=== PATIENT | female | born 1940 | race Caucasian/White ===

== ENCOUNTER 2023-11-06 10:06 | Emergency (ER) | payer MEDICARE, OTHER, SELFPAY ==
[2023-11-06 10:33] VITALS: BP 122/106
--- NOTE | 2023-11-06 10:43 | ED.GENMED ---
History of Present Illness
General
Chief Complaint: Cardiac Symptoms
Source: patient
Exam Limitations: none
Time Seen by Provider: 11/06/23 10:15
Nursing documentation reviewed up to this point in time: agreed with
Travel History
Have you had any contact with someone who has COVID-19?: Unable to Answer
Do you have any symptoms of coronavirus? Fever > 100 degrees, chills, cough, shortness of breath, sore throat, loss of taste or smell, muscle aches, or headache?: No
History of Present Illness
History of Present Illness:
83 yo female from [place] she had Covid diagnosed 8 days ago with sore throat, fatigue, cough, h/a, all have subsided. Hx of a fib, last episode >10 yrs ago. Here Apple watch alarmed her awake at 8 a.m. with a HR of
150's. She denies CP, SOB, palpitations. Her mouth is dry. States elevated HR has persisted.
Past History
Past History
ED Past Medical History: Arrthythmia (Atrial fib), Cancer (Ileum), HTN, NIDDM, Hypothyroidism, Psychiatric and Other (Diverticulitis)
ED Past Surgical History: Appendectomy, Bowel resection (Ileum removed for CA), Cholecystectomy, Gynecological (Hysterectomy) and Tonsilectomy
Social History
Tobacco: Former smoker
Alcohol: Occasional
Drug: None
Personal:
Living: assisted living
Employment: Retired
Family History
Family History: Other (Coronary artery disease, brother with pancreatic cancer, sister with CHF)
Review of Systems
Review of Systems
Allergies reviewed?: Yes
All Other Systems: ROS reviewed and negative except as documented in HPI and ROS
Constitutional: Denies fever or fatigue
Respiratory: Denies trouble breathing
Cardiac: Denies chest pain, diaphoresis, palpitations or syncope
ABD/GI: Denies abdominal pain or nausea
: Reports no symptoms
Musculoskeletal: Reports no symptoms
Skin: Reports no symptoms
Neurological: Reports no symptoms
Phy Exam
Physical Exam
Physical Exam:
GENERAL: No acute distress. A&Ox3.
CONSTITUTIONAL: Afebrile.
EYES: PERRL, conjunctivae normal
ENMT: Dry mucus membranes, Pharynx nl
RESPIRATORY: Regular respirations, nonlabored, lungs clear.
CARDIOVASCULAR: Irregular rate and rhythm anywhere between 90-140s on bedside monitor, no murmurs, no rubs.
GI: Soft, nontender, normal BS
MUSCULOSKELETAL: Moves with ease. Well perfused. No edema
SKIN: Warm, dry, pink
PSYCH: Normal mood and affect. Well kept, interactive and appropriate
NEUROLOGIC: Awake, alert and oriented. No focal neurological deficits
Course
Orders/Labs/Results
Orders:
Orders
11/06/23 10:15
IV Insert/Care/Rem.- Treatment PRN
11/06/23 10:16
EKG- Treatment ONCE
CR Chest - 2 Views Urgent
Comment:
Reason For Exam: irreg HR
11/06/23 10:26
Complete Blood Count/With Diff Urgent
Comprehensive Metabolic Panel Urgent
Magnesium Urgent
NT-proBNP Urgent
Prothrombin Time Urgent
TSH Urgent
Comment: reflex T4
Troponin I Q3H
11/06/23 10:30
Electrocardiogram (*1) Q3H
Reason for Study: Chest Pain
11/06/23 11:11
Diltiazem 125 mg/125 ml Nss [Cardizem] 125 mg in 125 ml IV NOW
Initial dose in mg/hr, then titrate:: 5
Titrate to keep:: Heart rate 80-100 bpm
Titrate by mg/hr:: 5 mg/hr
Frequency of titrations (minutes):: 15
Maximum dose in mg/hr:: 15
Diltiazem HCl [Cardizem] 10 mg IV NOW STA
11/06/23 13:00
Diltiazem 125 mg/125 ml Nss [Cardizem] 125 mg in 125 ml IV PER PROTOCOL
Currently infusing. Continue current dose and titrate:: Yes
Titrate to keep:: Heart rate 80-100 bpm
Titrate by mg/hr:: 5 mg/hr
Frequency of titrations (minutes):: 15
Maximum dose in mg/hr:: 15
11/06/23 13:13
EKG- Treatment ONCE
11/06/23 13:30
Electrocardiogram (*1) Q3H
Reason for Study: Chest Pain
11/06/23 13:37
Troponin I Q3H
Abnormal Lab Results
11/06/23
10:26
RDW 14.6 H %
(11.5-14.5)
Abs Immat Gran (auto) 0.1 H 10^3/uL
(0-0.05)
Absolute Monos (auto) 1.3 H 10^3/uL
(0.1-0.6)
Monocytes % 13.6 H %
(1.7-9.3)
Sodium 134 L mmol/L
(135-145)
BUN 22 H mg/dl
(7-17)
Creatinine 1.2 H mg/dL
(0.6-1.0)
Glucose 129 H mg/dl
(70-99)
11/06/23 10:26
11/06/23 10:26
Vital Signs
Initial and Last Documented VS:
Initial Vital Signs
Resp
18
11/06/23 10:14
Last Documented Vital Signs
Temp Pulse Resp BP Pulse Ox
98.1 F 84 17 113/81 98
11/06/23 10:33 11/06/23 13:26 11/06/23 13:26 11/06/23 13:26 11/06/23 13:26
Knitter Operator consulted with Physician
Knitter Operator consulted with physician?: Yes
Name of Physician Consulted: Lissett
MDM/Problems Addressed
Differential Diagnosis Includes:
NV, a fib w RVR
MDM/Problems Addressed:
83 yo female from [place] she had Covid diagnosed 8 days ago with sore throat, fatigue, cough, h/a, all have subsided. Hx of a fib, last episode >10 yrs ago. Here Apple watch alarmed her awake at 8 a.m. with a HR of
150's. She denies CP, SOB, palpitations. Her mouth is dry. States elevated HR has persisted.
EKG: A-fib with RVR heart rate 120s to 150s.
Hemodynamically stable
11/06/2023 1114 AM
CBC normal
CMP with no clinically significant abnormality
Troponin: Normal
BNP: Normal
TSH: Normal
Chest x-ray: No acute cardiopulmonary process.
Hospitalist notified of admission
Cardizem drip started
Will defer anticoagulation heparin versus DOAC's to admitting hospitalist
Case discussed with Dr. Galeana who agrees with assessment and plan
11/06/2023 1337 PM
Patient converted to NSR.
Cardiology Dr. Ruelas notified
Hospitalist has already admitted the patient, I am awaiting to speak with Dr. Ruelas about disposition
11/06/2023 1424 PM
Patient remains NSR, wants to go home.
Dr. Ruelas requests starting her on Toprol 50 mg daily and also Eliquis which she is agreeable to. Prescription sent to her pharmacy
She has a prescheduled appointment with Dr. KADEEM Baker in 5 days which she will keep
Chronic conditions affecting care: Arrhythmia (A fib 10 yrs ago)
*Critical Care Note
Total Time (30-74mins, 75-104mins- exclusive of procedures): Not Applicable
ED Attending Note
-
Portions of this chart may have been created with voice recognition software.� Occasional wrong word or��sound alike� substitutions may have occurred due to the inherent limitations of voice recognition software.
Discharge Plan
Departure
Patient Disposition: Home (Routine Discharge)
Date of Disposition: 11/06/23
Time of Disposition: 14:06
Patient with high blood pressure during this ER visit?: No
Condition: Good
Discharge Problem:
Atrial fibrillation with RVR
Instructions: Atrial fibrillation
Prescriptions:
New
metoprolol succinate [Toprol XL] 50 mg tablet extended release 24 hr
50 mg PO DAILY Qty: 30 0RF
Eliquis 5 mg tablet
5 mg PO BID Qty: 70 0RF
Rx Instructions:
10 mg BID x 7 days then 5 mg BID
No Action
levothyroxine 100 MCG tablet
100 mcg PO QPM
ezetimibe 10 MG tablet
10 mg PO DAILY
cholecalciferol (vitamin D3) 2,000 UNITS tablet
2,000 units PO DAILY
meclizine 25 MG tablet
25 mg PO Q8HPRN PRN (Reason: dizziness)
ondansetron 4 MG tablet,disintegrating
4 mg PO Q6HPRN PRN (Reason: nausea)
PreserVision AREDS-2 1 EACH capsule
1 ea PO BID
valsartan-hydrochlorothiazide 80-12.5 mg tablet
1 tab PO DAILY
sennosides-docusate sodium [Senna-S] 8.6-50 mg Tablet
1 tab-cap PO BID PRN (Reason: constipation)
Referrals:
Desmond Rangel MD [Family Provider] -
Carlos A Baker MD [Active] - Keep scheduled appt
Activity Restrictions/Additional Instructions:
As we discussed, I sent a prescription to your pharmacy for beta-martha, Toprol 50 mg a day and also blood thinner Eliquis
Keep your appointment with Dr. Baker in 5 days
Return here immediately if your heart rate becomes fast again and is consistently above 100, you develop chest pain, weakness, dizziness, nausea vomiting or feeling sicker in any way.
Interventions
Interventions:
*Risk Screen - Suicide Last Done: 11/06/23 14:30
*General Assessment Last Done: 11/06/23 10:48
*Neglect/Abuse Screening Last Done: 11/06/23 10:48
ED- Fall Risk Assessment Last Done: 11/06/23 10:48
*ED COVID-19 Vaccine History Last Done: 11/06/23 10:48
*Nursing Disposition Last Done: 11/06/23 14:35
ED- Pulmonary Assessment Last Done: 11/06/23 10:48
ED- Cardiac Assessment Last Done: 11/06/23 10:48
Discharge Date and Time
Discharge Date/Time: 11/06/23 14:35
[2023-11-06 10:49] LABS: % Basophils 0.7 % (0-2); % Eosinophils 3.5 % (0-6); % Immature Granulocytes 0.5 % (0-0.5); % Lymphocytes 30.1 % (20.5-51.1); % Monocytes 13.6 % (1.7-9.3); % Neutrophils 51.6 % (42.2-75.2); Absolute Basophils 0.1 10^3/uL (0-0.2); Absolute Eosinophils 0.3 10^3/uL (0-0.7); Absolute Immature Granulocytes 0.1 10^3/uL (0-0.05); Absolute Monocytes 1.3 10^3/uL (0.1-0.6); Absolute Neutrophils 5.1 10^3/uL (1.4-6.5); Hematocrit 41.8 % (37.0-47.0); Hemoglobin 14.1 g/dL (12.0-16.0); Mean Corp Hgb Conc. 33.7 g/dL (33.0-37.0); Mean Corpuscular Hgb 28.5 pg (27.0-31.0); Mean Corpuscular Volume 84.4 fL (81.0-99.0); Mean Platelet Volume 9.5 fL (7.4-10.4); Nucleated Red Blood Cells % 0 %; Platelet Count 358 10^3/uL (130-400); Red Blood Cell Count 4.95 10^6/uL (4.20-5.40); Red Cell Dist. Width 14.6 % (11.5-14.5); White Blood Cell Count 9.8 10^3/uL (4.8-10.8)
[2023-11-06 11:02] LABS: ALT (SGPT) 24 U/L (0-35); AST (SGOT) 28 U/L (14-36); Albumin 4.4 g/dl (3.5-5.0); Alkaline Phosphatase 69 U/L (38-126); Blood Urea Nitrogen 22 mg/dl (7-17); Calcium 9.5 mg/dl (8.4-10.2); Carbon Dioxide 25 mmol/L (22-30); Chloride 101 mmol/L (98-107); Glucose 129 mg/dl (70-99); Magnesium 1.7 mg/dl (1.6-2.3); Potassium 3.5 mmol/L (3.5-5.1); Sodium 134 mmol/L (135-145); Total Bilirubin 0.8 mg/dl (0.2-1.3); eGFR 44.64
[2023-11-06 11:12] LABS: INR 0.89; PT 12.3 Sec (11.4-14.6)
[2023-11-06 11:13] LABS: Troponin I < 0.012 ng/ml
[2023-11-06 11:24] VITALS: BP 139/82
[2023-11-06 11:27] VITALS: BP 139/82
[2023-11-06] MEDS: CARDIZEM 10 MG IV (11:31)
[2023-11-06] MEDS: CARDIZEM 125 IV (11:33)
[2023-11-06 11:43] LABS: TSH 1.54 uIU/ml (0.47-4.68)
[2023-11-06 11:54] VITALS: BP 144/120
[2023-11-06 12:00] VITALS: BP 126/105
[2023-11-06 13:26] VITALS: BP 113/81
--- NOTE | 2023-11-06 13:49 | CON.HOSP ---
Consultation
-
Date/Time Consultation Requested: 11/06/23
Date/Time Consultation Performed: 11/06/23
Requesting Provider: Gloria Ibanez
Performing Provider: Dr Liu Emmanuel
Reason for Consultation: medical management
Family Physician
-
Family Physician: Desmond Rangel
Chief Complaint
-
tachycardia
History of Present Illness
83-year-old female with past medical history of paroxysmal atrial fibrillation, hypertension, nonsustained insulin-dependent diverticulosis, hypothyroidism, diverticulitis, recent COVID came to the hospital with Apple Watch alarming her for
tachycardia. In the ED patient was in A-fib with rapid ventricular rate. Per patient her last episode of A-fib blood was long time ago. She denies any chest pain, shortness of breath. Patient was started on diltiazem in the ED. Currently
patient denies any abdominal pain, nausea, vomiting, diarrhea, constipation.
Medical History
Past Medical History
Past Medical History: Reports Arrhythmia (Atrial fibrillation), Cancer, HTN, Hypercholesterolemia and Hypothyroidism
Past Surgical History: Reports Appendectomy, Bowel Resection, Cholecystectomy, Gynocological and Tonsilectomy
Social History
Tobacco: Former Smoker
Alcohol: Occasional
Drug: None
Family History
Family History: Reviewed & Not Pertinent
Allergies / Home Medications
Allergies reflects when Allergies were last updated in [facility].
Home Medications with original date entered in [facility]
Allergy/Medication List:
Allergies
Allergy/AdvReac Type Severity Reaction Status Date / Time
allopurinol [Allopurinol] Allergy Rash,itchy Verified 12/30/21 10:35
azithromycin Allergy difficulty Verified 12/30/21 10:35
swelling;thick
tongue
bee pollen Allergy Anaphylaxis Verified 02/01/22 10:37
bee venom protein (honey bee) Allergy Anaphylaxis Verified 02/01/22 10:39
Cephalosporins Allergy Unknown Verified 02/01/22 10:33
codeine Allergy hallucinati Verified 12/30/21 10:35
on
diphenhydramine HCl Allergy irregular Verified 12/30/21 10:35
[From Benadryl] heart beat
latex [Latex] Allergy Rash,itchin Verified 12/30/21 10:35
g
lecithin, soy Allergy Hives Verified 02/01/22 10:41
metronidazole [From Flagyl] Allergy N&V,irregular Verified 12/30/21 10:35
heart beat
Penicillins Allergy Anaphylaxis Verified 12/30/21 10:35
Shellfish *RETIRED-07/01/12 Allergy Hives Verified 12/30/21 10:35
[Shellfish]
soy Allergy Hives Verified 12/30/21 10:35
Rcpqysw-ZVR-AkK Reductase Allergy Rash Verified 12/30/21 10:35
Inhibitor
[Lpczzee-Atk-Jnd Reductase
Inhibitor]
Sulfa (Sulfonamide Allergy Rash Verified 12/30/21 10:35
Antibiotics)
sulfasalazine Allergy Rash Verified 12/30/21 10:35
tetracycline [Tetracycline] Allergy Pharmacy Verified 12/30/21 10:35
to Review
tuberculin, purified protein Allergy arm Verified 02/01/22 10:34
deriva swelling
vancomycin Allergy thick Verified 12/30/21 10:35
tongue,difficulty
swallowing
artificial coloring Allergy Mild Rash Uncoded 12/30/21 10:35
opiods Allergy manic Uncoded 12/30/21 10:35
state,loss
of
inhibitions
Home Medications
levothyroxine 100 mcg tablet 100 mcg PO QPM Thyroid 06/14/20
cholecalciferol (vitamin D3) 50 mcg (2,000 unit) tablet 2,000 units PO DAILY Supplement 12/19/21
ezetimibe 10 mg tablet 10 mg PO DAILY High cholesterol 12/19/21
meclizine 25 mg tablet 25 mg PO Q8HPRN PRN dizziness 01/22/22
ondansetron 4 mg disintegrating tablet 4 mg PO Q6HPRN PRN nausea 01/22/22
vit C 250 mg-vit E 90 mg-zinc 40 mg-copper 1 hy-[id number]-vskcjc capsule (PreserVision AREDS-2) 1 ea PO BID 01/22/22
sennosides 8.6 mg-docusate sodium 50 mg tablet (Senna-S) 1 tab-cap PO BID PRN constipation 11/06/23
valsartan 80 mg-hydrochlorothiazide 12.5 mg tablet 1 tab PO DAILY 11/06/23
Review of Systems
-
History Source: Patient
A 12 point Review of Systems was completed except as noted: Yes
Physical Exam
Vital Signs
Vital Signs
Temp Pulse Resp BP Pulse Ox
98.1 F 84 17 113/81 98
11/06/23 10:33 11/06/23 13:26 11/06/23 13:26 11/06/23 13:26 11/06/23 13:26
Physical Exam
General: No Apparent Distress and Comfortable
HEENT: Anicteric and Moist Mucous Membranes
Respiratory: Clear and Non Labored Respirations; Negative Wheezes
Cardiac: S1/S2, Irregular Rhythm and Tachycardia
Breast: Deferred by me
GI: Soft, Non Tender, Non Distended and Normal Bowel Sounds
Rectal: Deferred by Provider
Genito-urinary: Negative Rush Catheter
Musculoskeletal: No Edema
Psych: Calm and Intact Judgement
Laboratory Results
-
Laboratory Results
11/06/23 10:26
11/06/23 10:26
PT 12.3 Sec (11.4-14.6) 11/06/23 10:26
INR 0.89 11/06/23 10:26
Total Bilirubin 0.8 mg/dl (0.2-1.3) 11/06/23 10:26
AST 28 U/L (14-36) 11/06/23 10:26
ALT 24 U/L (0-35) 11/06/23 10:26
Alkaline Phosphatase 69 U/L (38-126) 11/06/23 10:26
Troponin I < 0.012 ng/ml 11/06/23 10:26
Data Reviewed
-
Lab Data: Labs Reviewed, Discussed with Physician and Discussed with Patient
Impression / Plan
-
Atrial fibrillation with rapid ventricular rate
History of paroxysmal atrial fibrillation
Patient was initially started on diltiazem however subsequently converted back to normal sinus rhythm. ED then spoke with cardiology (Dr. Ruelas) who also recommended patient to be discharged home since converted back to normal sinus rhythm.
Cardiology recommended ED to start Eliquis 5 mg twice daily and Toprol and discharge the patient from ER
Patient did not had any chest pain or shortness of breath.
Patient to follow-up with cardiology soon outpatient
Consider echo outpatient
Suspect CKD
Mild hyponatremia-monitor
History of hypertension
History of hyperlipidemia
History of hypothyroidism
DVT prophylaxis
Eliquis
[2023-11-06 14:10] LABS: Troponin I 0.025 ng/ml
== END 2023-11-06 14:35 | disposition home or self-care (01) ==
LOC: EMR 10:06
PROVIDERS: Registered Nurse; EMERGENCY PHYSICIAN Emergency Medicine; FAMILY PHYSICIAN Internal Medicine
DX: I48.91 Unspecified atrial fibrillation (principal); I10 Essential (primary) hypertension; E11.9 Type 2 diabetes mellitus without complications; E03.9 Hypothyroidism, unspecified; E78.00 Pure hypercholesterolemia, unspecified; E87.1 Hypo-osmolality and hyponatremia; Z79.01 Long term (current) use of anticoagulants; Z79.899 Other long term (current) drug therapy; Z82.49 Family history of ischemic heart disease and other diseases of the circulatory system; Z87.891 Personal history of nicotine dependence; Z88.0 Allergy status to penicillin; Z88.1 Allergy status to other antibiotic agents; Z88.2 Allergy status to sulfonamides; Z88.8 Allergy status to other drugs, medicaments and biological substances; Z90.49 Acquired absence of other specified parts of digestive tract; Z90.710 Acquired absence of both cervix and uterus; Z91.030 Bee allergy status
CPT/HCPCS: 99283; 96374; 96376; 71046; 80053; 83735; 83880; 84443; 84484; 85025; 85610; 93005

== ENCOUNTER 2023-12-27 10:40 | Emergency (ER) | payer MEDICARE, OTHER, SELFPAY ==
[2023-12-27 10:43] VITALS: BP 180/89; BMI 24.2
[2023-12-27 11:00] VITALS: BP 152/87
--- NOTE | 2023-12-27 11:01 | ED.GENMED ---
History of Present Illness
General
Chief Complaint: Heart Rate Problem
Source: patient
Exam Limitations: none
Time Seen by Provider: 12/27/23 10:52
Nursing documentation reviewed up to this point in time: agreed with
Travel History
Have you had any contact with someone who has COVID-19?: No
Do you have any symptoms of coronavirus? Fever > 100 degrees, chills, cough, shortness of breath, sore throat, loss of taste or smell, muscle aches, or headache?: No
History of Present Illness
History of Present Illness:
She is an the 83 yr old female w/ PMH of afib , htn she just had her blood pressure niddm diverticulitis presents to the ED for eval . Pt reports that 8 AM when she woke up she noticed her heart rate was very fast. She checked her Apple Watch
which read A-fib. She tried to do a lot of deep breathing and drank water however she remained in afib. She called for the nurse and was sent by currently she feels much better. She is on Toprol and Eliquis and has not missed a dose. She has no
present symptoms and has no complaints.
Past History
Past History
ED Past Medical History: Arrthythmia (Atrial fib), Cancer (Ileum), HTN, NIDDM, Hypothyroidism, Psychiatric and Other (Diverticulitis)
ED Past Surgical History: Appendectomy, Bowel resection (Ileum removed for CA), Cholecystectomy, Gynecological (Hysterectomy) and Tonsilectomy
Social History
Tobacco: Former smoker
Alcohol: Occasional
Drug: None
Personal:
Living: assisted living
Employment: Retired
Family History
Family History: Other (Coronary artery disease, brother with pancreatic cancer, sister with CHF)
Review of Systems
Review of Systems
Allergies reviewed?: Yes
All Other Systems: ROS reviewed and negative except as documented in HPI and ROS
Constitutional: Reports no symptoms; Denies fever, fatigue or chills
EENT: Reports no symptoms
Respiratory: Reports no symptoms
Cardiac: Reports palpitations (had palpitations now resolved )
ABD/GI: Reports no symptoms; Denies abdominal pain, nausea or vomiting
: Reports no symptoms
Musculoskeletal: Reports no symptoms
Skin: Reports no symptoms
Neurological: Reports no symptoms
Psychiatric: Reports no symptoms
Phy Exam
General Physical Exam
General Presentation: no apparent distress
General age: appears stated age
General Skin: warm and dry
General Habitus: elderly
General Mental: alert
General Hydration: appears well hydrated
Cardiovascular Exam
Cardiovascular Exam: regular rate/rhythm, no murmur and normal peripheral pulses
Pulmonary Exam
Pulmonary Exam: lungs clear and no respiratory distress
Musculoskeletal Exam
Musculoskeletal Exam: full ROM
Skin Exam
Skin Exam: normal color and warm/dry
Course
Orders/Labs/Results
Orders:
Orders
12/27/23 10:42
EKG [Electrocardiogram (*1)] Urgent
Reason for Study: Atrial Fibrillation
EKG- Treatment ONCE
12/27/23 10:56
CXR2 [CR Chest - 2 Views ] Urgent
Comment:
Reason For Exam: shortness of breath
12/27/23 10:58
Complete Blood Count/With Diff Urgent
Comprehensive Metabolic Panel Urgent
NT-proBNP Urgent
Troponin I Urgent
Abnormal Lab Results
12/27/23
10:58
RDW 15.5 H %
(11.5-14.5)
Absolute Monos (auto) 1.1 H 10^3/uL
(0.1-0.6)
Monocytes % 10.7 H %
(1.7-9.3)
BUN 30 H mg/dl
(7-17)
Creatinine 1.2 H mg/dL
(0.6-1.0)
Glucose 132 H mg/dl
(70-99)
Total Protein 8.4 H g/dl
(6.3-8.2)
12/27/23 10:58
12/27/23 10:58
Vital Signs
Initial and Last Documented VS:
Initial Vital Signs
Temp Pulse Resp BP Pulse Ox
98.3 F 80 22 180/89 99
12/27/23 10:43 12/27/23 10:43 12/27/23 10:43 12/27/23 10:43 12/27/23 10:43
Last Documented Vital Signs
Temp Pulse Resp BP Pulse Ox
98.3 F 76 15 152/87 100
12/27/23 10:43 12/27/23 11:45 12/27/23 11:45 12/27/23 11:00 12/27/23 11:15
MDM/Problems Addressed
Differential Diagnosis Includes:
not limited to A-fib arrhythmia
MDM/Problems Addressed:
Patient is an 83-year-old female with history of paroxysmal A-fib on Eliquis presents to the ER for evaluation. Her Apple Watch told her she was in A-fib when she had palpitations symptoms have completely resolved. She arrives in normal sinus
rhythm and has been in normal sinus rhythm here in the ER. No complaints of chest pain no recent illness of fever or chills. Labs checked BUN 30 which is slightly elevated in the past however she has had chronically elevated renal function. was
given fluids here. creatinine is 1.2 which is baseline. Will plan to monitor and discharged home.
1322:
Patient has remained in normal sinus rhythm and no acute distress stable for discharge home with outpatient cardiology follow-up.
*Pulse Oximetry
Patient hypoxic: no
*EKG
Interpretation: normal
Comparison EKG: no changes
Heart Rate: 78
Rate: normal
Rhythm: sinus
Ischemia: no ischemia
*Critical Care Note
Total Time (30-74mins, 75-104mins- exclusive of procedures): Not Applicable
ED Attending Note
-
Portions of this chart may have been created with voice recognition software.� Occasional wrong word or��sound alike� substitutions may have occurred due to the inherent limitations of voice recognition software.
Discharge Plan
Departure
Patient Disposition: Home (Routine Discharge)
Date of Disposition: 12/27/23
Time of Disposition: 13:25
Patient with high blood pressure during this ER visit?: Yes
Condition: Fair
Covid-19: Not Applicable
Discharge Problem:
Heart palpitations
Instructions: Palpitations (DC), BLOOD PRESSURE
Prescriptions:
No Action
levothyroxine 100 MCG tablet
100 mcg PO QPM
ezetimibe 10 MG tablet
10 mg PO DAILY
cholecalciferol (vitamin D3) 2,000 UNITS tablet
2,000 units PO DAILY
meclizine 25 MG tablet
25 mg PO Q8HPRN PRN (Reason: dizziness)
ondansetron 4 MG tablet,disintegrating
4 mg PO Q6HPRN PRN (Reason: nausea)
PreserVision AREDS-2 1 EACH capsule
1 ea PO BID
valsartan-hydrochlorothiazide 80-12.5 mg tablet
1 tab PO DAILY
sennosides-docusate sodium [Senna-S] 8.6-50 mg Tablet
1 tab-cap PO BID PRN (Reason: constipation)
metoprolol succinate [Toprol XL] 50 mg tablet extended release 24 hr
50 mg PO DAILY Qty: 30 0RF
Eliquis 5 mg tablet
5 mg PO BID Qty: 70 0RF
Referrals:
Desmond Rangel MD [Family Provider] -
Carlos A Baker MD [Active] -
Activity Restrictions/Additional Instructions:
Stay well-hydrated. Follow-up with your country printer as discussed please call today to make an appointment in the next several days for reevaluation continue your present medications and return if any worsening of symptoms
Interventions
Interventions:
*Risk Screen - Suicide Last Done: 12/27/23 10:43
*General Assessment Last Done: 12/27/23 10:43
*Neglect/Abuse Screening Last Done: 12/27/23 10:43
ED- Fall Risk Assessment Last Done: 12/27/23 10:56
*ED COVID-19 Vaccine History Last Done: 12/27/23 10:43
ED- Cardiac Assessment Last Done: 12/27/23 10:56
ED- Pulmonary Assessment Last Done: 12/27/23 10:56
[2023-12-27 11:20] LABS: ALT (SGPT) 16 U/L (0-35); AST (SGOT) 24 U/L (14-36); Albumin 4.5 g/dl (3.5-5.0); Alkaline Phosphatase 69 U/L (38-126); Blood Urea Nitrogen 30 mg/dl (7-17); Calcium 10.1 mg/dl (8.4-10.2); Carbon Dioxide 22 mmol/L (22-30); Chloride 102 mmol/L (98-107); Estimated Creatinine Clearance 31 ml/min; Glucose 132 mg/dl (70-99); Potassium 3.6 mmol/L (3.5-5.1); Sodium 137 mmol/L (135-145); Total Bilirubin 0.9 mg/dl (0.2-1.3); Total Protein 8.4 g/dl (6.3-8.2); eGFR 44.64
[2023-12-27 11:22] LABS: % Basophils 0.7 % (0-2); % Eosinophils 3.5 % (0-6); % Immature Granulocytes 0.4 % (0-0.5); % Lymphocytes 32.4 % (20.5-51.1); % Monocytes 10.7 % (1.7-9.3); % Neutrophils 52.3 % (42.2-75.2); Absolute Basophils 0.1 10^3/uL (0-0.2); Absolute Eosinophils 0.4 10^3/uL (0-0.7); Absolute Lymphocytes 3.3 10^3/uL (1.2-3.4); Absolute Monocytes 1.1 10^3/uL (0.1-0.6); Absolute Neutrophils 5.3 10^3/uL (1.4-6.5); Hematocrit 40.3 % (37.0-47.0); Hemoglobin 13.4 g/dL (12.0-16.0); Mean Corp Hgb Conc. 33.3 g/dL (33.0-37.0); Mean Corpuscular Hgb 28.6 pg (27.0-31.0); Mean Corpuscular Volume 85.9 fL (81.0-99.0); Nucleated Red Blood Cells % 0 %; Platelet Count 308 10^3/uL (130-400); Red Blood Cell Count 4.69 10^6/uL (4.20-5.40); Red Cell Dist. Width 15.5 % (11.5-14.5); White Blood Cell Count 10.2 10^3/uL (4.8-10.8)
[2023-12-27 11:31] LABS: NT-proBNP 103 pg/ml; Troponin I < 0.012 ng/ml
[2023-12-27 12:10] VITALS: BP 129/90
[2023-12-27 13:20] VITALS: BP 162/83
== END 2023-12-27 14:09 | disposition home or self-care (01) ==
LOC: EMR 10:40
PROVIDERS: Nurse Practitioner; EMERGENCY PHYSICIAN Emergency Medicine; FAMILY PHYSICIAN Internal Medicine
DX: R00.2 Palpitations (principal); R06.02 Shortness of breath; I48.0 Paroxysmal atrial fibrillation; I10 Essential (primary) hypertension; Z87.891 Personal history of nicotine dependence; Z79.01 Long term (current) use of anticoagulants
CPT/HCPCS: 99285; 71046; 80053; 83880; 84484; 85025; 93005

== ENCOUNTER → 2024-02-11 11:18 | Outpatient (REF) | payer MEDICARE, OTHER, SELFPAY | LOC: HWRCS 11:18 | PROVIDERS: ATTENDING PHYSICIAN Internal Medicine Cardiovascular Disease; FAMILY PHYSICIAN Family Medicine | DX: I48.0 Paroxysmal atrial fibrillation (principal) | CPT/HCPCS: 93306 ==

== ENCOUNTER 2024-06-20 17:20 | Emergency (ER) | payer MEDICARE, OTHER, SELFPAY ==
[2024-06-20 17:23] VITALS: BP 173/108; BMI 27.0
[2024-06-20 17:38] VITALS: BP 168/120
[2024-06-20 17:42] LABS: % Basophils 0.5 % (0-2); % Eosinophils 3.2 % (0-6); % Immature Granulocytes 0.3 % (0-0.5); % Lymphocytes 35.5 % (20.5-51.1); % Monocytes 8.2 % (1.7-9.3); % Neutrophils 52.3 % (42.2-75.2); Absolute Basophils 0.1 10^3/uL (0-0.2); Absolute Eosinophils 0.4 10^3/uL (0-0.7); Absolute Lymphocytes 4.3 10^3/uL (1.2-3.4); Absolute Neutrophils 6.3 10^3/uL (1.4-6.5); Hematocrit 40.4 % (37.0-47.0); Hemoglobin 13.5 g/dL (12.0-16.0); Mean Corp Hgb Conc. 33.4 g/dL (33.0-37.0); Mean Corpuscular Hgb 28.9 pg (27.0-31.0); Mean Corpuscular Volume 86.5 fL (81.0-99.0); Mean Platelet Volume 9.6 fL (7.4-10.4); Nucleated Red Blood Cells % 0 %; Platelet Count 334 10^3/uL (130-400); Red Blood Cell Count 4.67 10^6/uL (4.20-5.40); Red Cell Dist. Width 14.5 % (11.5-14.5)
--- NOTE | 2024-06-20 17:44 | ED.GENMED ---
History of Present Illness
General
Chief Complaint: Heart Rate Problem
Source: patient
Exam Limitations: none
Time Seen by Provider: 06/20/24 17:41
Nursing documentation reviewed up to this point in time: agreed with
History of Present Illness
History of Present Illness:
83-year-old female with past medical history of paroxysmal A-fib not currently anticoagulated presenting to the emergency department today with concerns of palpitations that started abruptly roughly 2-1/2 hours prior to arrival to the emergency
department. Feels very similar to previous episodes of atrial fibrillation which she has had many times over the past few years. Patient follows up with Dr. Baker cardiology. Denies any chest pain shortness of breath otherwise feels well at this
moment. Denies any new or changing medications. Had similar episode a few weeks ago when she was in [place] that self resolved after a few hours.
Past History
Past History
ED Past Medical History: Arrthythmia (Atrial fib), Cancer (Ileum), HTN, NIDDM, Hypothyroidism, Psychiatric and Other (Diverticulitis)
ED Past Surgical History: Appendectomy, Bowel resection (Ileum removed for CA), Cholecystectomy, Gynecological (Hysterectomy) and Tonsilectomy
Social History
Tobacco: Former smoker
Alcohol: Occasional
Drug: None
Personal:
Living: assisted living
Employment: Retired
Family History
Family History: Other (Coronary artery disease, brother with pancreatic cancer, sister with CHF)
Review of Systems
Review of Systems
Allergies reviewed?: Yes
All Other Systems: ROS reviewed and negative except as documented in HPI and ROS
Phy Exam
Physical Exam
Physical Exam:
GENERAL: Alert , in no apparent distress
EYE: pupils equal and reactive
NECK: Supple, no significant adenopathy.
ENT: o/p clr, mmm.
CARDIAC: Tachycardic irregularly irregular
LUNGS: Clear breath sounds bilaterally, no acute respiratory distress, no wheezes/rales/rhonchi
ABDOMEN: Soft, without focal tenderness, no r/g, no cvat
NEUROLOGICAL: Alert and oriented, no focal neuro deficits
SKIN: Warm and dry, skin intact.
MUSCULOSKELETAL: No edema, well perfused.
PSYCH: Normal and appropriate interaction.
Course
Orders/Labs/Results
Orders:
Orders
06/20/24 17:21
Electrocardiogram (*1) Urgent
Reason for Study: Atrial Fibrillation
06/20/24 17:22
EKG- Treatment ONCE
06/20/24 17:29
Complete Blood Count/With Diff Urgent
Comprehensive Metabolic Panel Urgent
Troponin I Urgent
06/20/24 17:41
Diltiazem HCl [Cardizem] 17 mg IV NOW STA
06/20/24 17:43
0.9% Sodium Chloride 500 ml [Nss] 500 ml IV BOLUS
06/20/24 17:59
Electrocardiogram (*1) Urgent
Reason for Study: Atrial Fibrillation
EKG- Treatment ONCE
Abnormal Lab Results
06/20/24
17:29
WBC 12.0 H 10^3/uL
(4.8-10.8)
Absolute Lymphs (auto) 4.3 H 10^3/uL
(1.2-3.4)
Absolute Monos (auto) 1.0 H 10^3/uL
(0.1-0.6)
Chloride 108 H mmol/L
(98-107)
Carbon Dioxide 17 L mmol/L
(22-30)
BUN 27 H mg/dl
(7-17)
Creatinine 1.1 H mg/dL
(0.6-1.0)
Glucose 157 H mg/dl
(70-99)
Calcium 10.5 H mg/dl
(8.4-10.2)
06/20/24 17:29
09/07/24 17:29
Vital Signs
Initial and Last Documented VS:
Initial Vital Signs
Temp Pulse Resp BP Pulse Ox
98.1 F 163 23 173/108 98
06/20/24 17:23 06/20/24 17:23 06/20/24 17:23 06/20/24 17:23 06/20/24 17:23
Last Documented Vital Signs
Temp Pulse Resp BP Pulse Ox
98.1 F 91 15 140/85 98
06/20/24 17:23 06/20/24 19:00 06/20/24 19:00 06/20/24 19:07 06/20/24 19:00
MDM/Problems Addressed
MDM/Problems Addressed:
83-year-old female presenting to the emergency department today with concerns of palpitations prior to arrival feel similar to previous episodes of A-fib. Upon arrival patient is in atrial fibrillation with RVR. Generally well-appearing blood
pressures elevated here. Speaking full sentences in no distress. No chest pain or shortness of breath. Heart rate in the 140s 170s. Cardizem was being given as a push when heart rate improved and patient converted to sinus rhythm. Confirmed on
twelve-lead EKG. Patient now asymptomatic. Labs without emergent findings. Troponin negative patient in sinus rhythm for multiple hours in the ER otherwise stable for outpatient management return precautions given.
*Critical Care Note
Total Time (30-74mins, 75-104mins- exclusive of procedures): Not Applicable
ED Attending Note
-
Portions of this chart may have been created with voice recognition software.� Occasional wrong word or��sound alike� substitutions may have occurred due to the inherent limitations of voice recognition software.
Discharge Plan
Departure
Patient Disposition: Home (Routine Discharge)
Date of Disposition: 06/20/24
Time of Disposition: 19:29
Patient with high blood pressure during this ER visit?: No
Condition: Good
Covid-19: Not Applicable
Discharge Problem:
Atrial fibrillation
Instructions: Atrial Fibrillation (DC), Chest Pain DCA Follow Up
Prescriptions:
No Action
levothyroxine 100 MCG tablet
100 mcg PO QPM
ezetimibe 10 MG tablet
10 mg PO DAILY
cholecalciferol (vitamin D3) 2,000 UNITS tablet
2,000 units PO DAILY
meclizine 25 MG tablet
25 mg PO Q8HPRN PRN (Reason: dizziness)
ondansetron 4 MG tablet,disintegrating
4 mg PO Q6HPRN PRN (Reason: nausea)
PreserVision AREDS-2 1 EACH capsule
1 ea PO BID
valsartan-hydrochlorothiazide 80-12.5 mg tablet
1 tab PO DAILY
sennosides-docusate sodium [Senna-S] 8.6-50 mg Tablet
1 tab-cap PO BID PRN (Reason: constipation)
metoprolol succinate [Toprol XL] 50 mg tablet extended release 24 hr
50 mg PO DAILY Qty: 30 0RF
Eliquis 5 mg tablet
5 mg PO BID Qty: 70 0RF
Referrals:
Jossy Prajapati NP [Family Provider] -
Activity Restrictions/Additional Instructions:
You came to the emergency department today with concerns of palpitations. You were in atrial fibrillation. This resolved on its own here. Please follow closely with cardiology. Return to the emergency department for any worsening, new or
concerning symptoms.
Interventions
Interventions:
*Risk Screen - Suicide Last Done: 06/20/24 17:23
*General Assessment Last Done: 06/20/24 17:23
*Neglect/Abuse Screening Last Done: 06/20/24 17:23
ED- Fall Risk Assessment Last Done: 06/20/24 17:23
*ED COVID-19 Vaccine History Last Done: 06/20/24 17:23
ED- Cardiac Assessment Last Done: 06/20/24 17:35
ED- Pulmonary Assessment Last Done: 06/20/24 17:35
Discharge Date and Time
Print Language: SCOTTISH
[2024-06-20] MEDS: NSS 500 IV (17:48)
[2024-06-20] MEDS: CARDIZEM 17 MG IV (17:49)
[2024-06-20 18:02] LABS: ALT (SGPT) 13 U/L (0-35); AST (SGOT) 26 U/L (14-36); Albumin 4.5 g/dl (3.5-5.0); Alkaline Phosphatase 84 U/L (38-126); Blood Urea Nitrogen 27 mg/dl (7-17); Calcium 10.5 mg/dl (8.4-10.2); Carbon Dioxide 17 mmol/L (22-30); Chloride 108 mmol/L (98-107); Estimated Creatinine Clearance 36 ml/min; Glucose 157 mg/dl (70-99); Potassium 4.3 mmol/L (3.5-5.1); Sodium 144 mmol/L (135-145); Total Bilirubin 0.7 mg/dl (0.2-1.3); Total Protein 7.9 g/dl (6.3-8.2); eGFR 49.55
[2024-06-20 18:04] LABS: Troponin I < 0.012 ng/ml
[2024-06-20 19:07] VITALS: BP 140/85
== END 2024-06-20 19:50 | disposition home or self-care (01) ==
LOC: EMR 17:20
PROVIDERS: EMERGENCY PHYSICIAN Emergency Medicine; FAMILY PHYSICIAN Family Medicine
DX: I48.0 Paroxysmal atrial fibrillation (principal); E03.9 Hypothyroidism, unspecified; K57.92 Diverticulitis of intestine, part unspecified, without perforation or abscess without bleeding; K21.9 Gastro-esophageal reflux disease without esophagitis; K58.9 Irritable bowel syndrome, unspecified; I12.9 Hypertensive chronic kidney disease with stage 1 through stage 4 chronic kidney disease, or unspecified chronic kidney disease; E11.22 Type 2 diabetes mellitus with diabetic chronic kidney disease; N18.30 Chronic kidney disease, stage 3 unspecified; M19.90 Unspecified osteoarthritis, unspecified site; M10.9 Gout, unspecified; H35.30 Unspecified macular degeneration; D64.9 Anemia, unspecified; F41.9 Anxiety disorder, unspecified; F32.A Depression, unspecified; Z85.89 Personal history of malignant neoplasm of other organs and systems; Z87.820 Personal history of traumatic brain injury; Z87.891 Personal history of nicotine dependence; Z98.0 Intestinal bypass and anastomosis status; Z90.49 Acquired absence of other specified parts of digestive tract
CPT/HCPCS: 99284; 96374; 96361; 80053; 84484; 85025; 93005

== ENCOUNTER 2024-07-13 17:39 | Emergency (ER) | payer MEDICARE, OTHER, SELFPAY ==
[2024-07-13 17:41] VITALS: BP 148/135
[2024-07-13 17:45] VITALS: BP 148/135
--- NOTE | 2024-07-13 17:53 | ED.GENMED ---
History of Present Illness
General
Chief Complaint: Heart Rate Problem
Time Seen by Provider: 07/13/24 17:53
History of Present Illness
History of Present Illness:
HPI: Patient comes in from home by ambulance due to feeling is that she is in rapid A-fib again. She was seen here 3 weeks ago, and converted back to sinus after Cardizem was given. Notes indicate that she was started on anticoagulation but she
cannot tell me if she has been taking the anticoagulation.
EXAM:
GENERAL: Well appearing in no distress
HEENT: Moist oral mucosa
CARDIOVASCULAR: No murmurs, tachycardic heart rate, irregular rhythm, No chest wall tenderness
PULMONARY: No respiratory distress, breath sounds are clear and equal
ABDOMEN: Soft with no peritoneal signs, no tenderness
NEUROLOGIC: Excellent strength all extremities, no coordination deficits, some mild memory and cognitive impairment noted
PSYCHIATRIC: Fair insight and judgement
EXTREMITIES: Nontender, no edema, moves all extremities equally
SKIN: No rash, no lesions
TIME OF INITIAL ENCOUNTER: 6 PM
NUMBER AND COMPLEXITY OF PROBLEMS ADDRESSED AT THE ENCOUNTER
� Chronic conditions affecting care: Atrial fibrillation on Eliquis
� Acute Exacerbation and/or Progression of Chronic Illness: This is an acute but recurring problem
� Differential Diagnosis includes: Atrial fibrillation, SVT
AMOUNT AND/OR COMPLEXITY OF DATA TO BE REVIEWED AND ANALYZED
� I performed an independent evaluation of and my interpretation is:
EKG: A-fib, 175, right bundle branch block, at 6 PM on 06/20/2024, she was in a sinus rhythm
CT:
X-rays:
Laboratory Studies: White count 12.8, hemoglobin 13.7, creatinine 1.1, glucose 237
Other:
� Review of other/old records: I reviewed the note from the patient was here a few weeks ago and also had rapid A-fib in which she converted with Cardizem.
� Clinical information was obtained by an independent historian: I tried to call the pharmacist to see if she is on Eliquis
� Prescriptions/Medications Considered but not given: Considered Cardizem/Toprol but she think she does not tolerate these orally as an outpatient
� Further testing considered but not performed:
RISK OF COMPLICATIONS AND/OR MORBIDITY OR MORTALITY OF PATIENT MANAGEMENT
� Social determinants of health affecting care: Lives at home
� Discussion with other providers:
� Escalation of care including admission/observation vs risk of discharge considered: The patient was given Cardizem bolus and drip briefly. She then converted to a sinus rhythm with rates in the 90s. Repeat EKG shows sinus
rhythm with rate of 94, right bundle branch block. On reassessment at 7:30 PM, she is in a sinus rhythm. Turning Cardizem off. She did not want to go on a negative chronotropic setting previous intolerances. I tried calling her pharmacy to see
if she is on Eliquis but her pharmacy is closed. She is to follow-up with cardiology and she has a planned ablation in August.
Past History
Past History
ED Past Medical History: Arrthythmia (Atrial fib), Cancer (Ileum), HTN, NIDDM, Hypothyroidism, Psychiatric and Other (Diverticulitis)
ED Past Surgical History: Appendectomy, Bowel resection (Ileum removed for CA), Cholecystectomy, Gynecological (Hysterectomy) and Tonsilectomy
Social History
Tobacco: Former smoker
Alcohol: Occasional
Drug: None
Personal:
Living: assisted living
Employment: Retired
Family History
Family History: Other (Coronary artery disease, brother with pancreatic cancer, sister with CHF)
Phy Exam
Physical Exam
Physical Exam:
See HPI
Course
Orders/Labs/Results
Orders:
Orders
07/13/24 17:47
Electrocardiogram (*1) Urgent
Reason for Study: Atrial Fibrillation
EKG- Treatment ONCE
07/13/24 17:48
Complete Blood Count/With Diff Urgent
Comprehensive Metabolic Panel Urgent
07/13/24 18:04
Diltiazem HCl [Cardizem] 10 mg IV NOW STA
07/13/24 18:15
Diltiazem 125 mg/125 ml Nss [Cardizem] 125 mg in 125 ml IV PER PROTOCOL
Initial dose in mg/hr, then titrate:: 5
Titrate to keep:: Heart rate 80-100 bpm
Titrate by mg/hr:: 5 mg/hr
Frequency of titrations (minutes):: 15
Maximum dose in mg/hr:: 15
Abnormal Lab Results
07/13/24
17:48
WBC 12.8 H 10^3/uL
(4.8-10.8)
RDW 14.6 H %
(11.5-14.5)
Abs Immat Gran (auto) 0.1 H 10^3/uL
(0-0.05)
Absolute Neuts (auto) 8.1 H 10^3/uL
(1.4-6.5)
Absolute Monos (auto) 1.3 H 10^3/uL
(0.1-0.6)
Monocytes % 10.2 H %
(1.7-9.3)
Carbon Dioxide 18 L mmol/L
(22-30)
BUN 20 H mg/dl
(7-17)
Creatinine 1.1 H mg/dL
(0.6-1.0)
Glucose 237 H mg/dl
(70-99)
07/13/24 17:48
07/13/24 17:48
Vital Signs
Initial and Last Documented VS:
Initial Vital Signs
Temp Pulse Resp BP
99.1 F 156 16 148/135
07/13/24 17:41 07/13/24 17:41 07/13/24 17:41 07/13/24 17:41
Last Documented Vital Signs
Temp Pulse Resp BP Pulse Ox
99.1 F 182 25 122/94 97
07/13/24 17:41 07/13/24 18:15 07/13/24 18:00 07/13/24 18:00 07/13/24 18:00
*Critical Care Note
Total Time (30-74mins, 75-104mins- exclusive of procedures): 45 min
comment:
The patient has heart rates near the 190 range upon arrival. She was emergently of Cardizem bolus and drip and has converted to a sinus rhythm as she was closely monitored throughout the stay in the emergency department.
ED Attending Note
-
Portions of this chart may have been created with voice recognition software.� Occasional wrong word or��sound alike� substitutions may have occurred due to the inherent limitations of voice recognition software.
Discharge Plan
Departure
Patient Disposition: Home (Routine Discharge)
Date of Disposition: 07/13/24
Time of Disposition: 19:34
Patient with high blood pressure during this ER visit?: Yes
Discharge Problem:
Paroxysmal atrial fibrillation, Atrial fibrillation
Instructions: Atrial Fibrillation (DC)
Prescriptions:
No Action
cholecalciferol (vitamin D3) 2,000 UNITS tablet
2,000 units PO DAILY
ondansetron 4 MG tablet,disintegrating
4 mg PO Q6HPRN PRN (Reason: nausea)
PreserVision AREDS-2 1 EACH capsule
1 ea PO BID
cetirizine [Zyrtec] 10 mg Tablet
10 mg PO DAILYPRN PRN (Reason: allergies)
famotidine 40 mg Tablet
40 mg PO HS
cyanocobalamin (vitamin B-12) 1,000 mcg Tablet
1,000 mcg PO DAILY
levothyroxine 75 mcg Tablet
75 mcg PO QPM
triamcinolone acetonide [Nasacort] 55 mcg Aerosol,[place]
2 spray INTRANASAL DAILYPRN PRN (Reason: conjestion)
valsartan 160 mg Tablet
160 mg PO HS
Patient Comments:
07/13/24: Patient stated she is currently taking 160mg, with plans to increase to 320mg in the future.
Saline Mist 0.65 % Aerosol,[place]
2 spray INTRANASAL DAILYPRN PRN (Reason: conjestion)
Referrals:
Jossy Prajapati NP [Family Provider] -
Carlos A Baker MD [Active] - Next open appointment
Activity Restrictions/Additional Instructions:
I sent a message to the covering senior accounting associate for Dr. Baker, Dr. Brewer. Please follow-up with their office for any further recommendations. You were in atrial fibrillation upon arrival with rates in the 180s to 190s but after medicine, heart
rate is now down into the 90s and you are back in a normal sinus rhythm.
Interventions
Interventions:
*Risk Screen - Suicide Last Done: 07/13/24 17:41
*General Assessment Last Done: 07/13/24 17:41
*Neglect/Abuse Screening Last Done: 07/13/24 17:41
ED- Cardiac Assessment Last Done: 07/13/24 18:02
ED- Pulmonary Assessment Last Done: 07/13/24 18:02
Discharge Date and Time
Print Language: BELIZEAN
[2024-07-13 18:00] VITALS: BP 122/94
[2024-07-13 18:00] LABS: % Basophils 0.4 % (0-2); % Eosinophils 1.3 % (0-6); % Immature Granulocytes 0.5 % (0-0.5); % Monocytes 10.2 % (1.7-9.3); % Neutrophils 63.6 % (42.2-75.2); Absolute Basophils 0.1 10^3/uL (0-0.2); Absolute Eosinophils 0.2 10^3/uL (0-0.7); Absolute Immature Granulocytes 0.1 10^3/uL (0-0.05); Absolute Lymphocytes 3.1 10^3/uL (1.2-3.4); Absolute Monocytes 1.3 10^3/uL (0.1-0.6); Absolute Neutrophils 8.1 10^3/uL (1.4-6.5); Hematocrit 41.2 % (37.0-47.0); Hemoglobin 13.7 g/dL (12.0-16.0); Mean Corp Hgb Conc. 33.3 g/dL (33.0-37.0); Mean Corpuscular Hgb 28.3 pg (27.0-31.0); Mean Corpuscular Volume 85.1 fL (81.0-99.0); Mean Platelet Volume 9.9 fL (7.4-10.4); Nucleated Red Blood Cells % 0 %; Platelet Count 303 10^3/uL (130-400); Red Blood Cell Count 4.84 10^6/uL (4.20-5.40); Red Cell Dist. Width 14.6 % (11.5-14.5); White Blood Cell Count 12.8 10^3/uL (4.8-10.8)
[2024-07-13 18:02] VITALS: BMI 23.9
[2024-07-13] MEDS: CARDIZEM 10 MG IV (18:15)
[2024-07-13] MEDS: CARDIZEM 125 IV (18:15)
[2024-07-13 18:19] LABS: ALT (SGPT) 14 U/L (0-35); AST (SGOT) 21 U/L (14-36); Albumin 4.1 g/dl (3.5-5.0); Alkaline Phosphatase 70 U/L (38-126); Blood Urea Nitrogen 20 mg/dl (7-17); Calcium 9.6 mg/dl (8.4-10.2); Carbon Dioxide 18 mmol/L (22-30); Chloride 105 mmol/L (98-107); Estimated Creatinine Clearance 31 ml/min; Glucose 237 mg/dl (70-99); Potassium 4.2 mmol/L (3.5-5.1); Sodium 139 mmol/L (135-145); Total Protein 7.4 g/dl (6.3-8.2); eGFR 49.55
[2024-07-13 19:00] VITALS: BP 114/86
== END 2024-07-13 20:22 | disposition home or self-care (01) ==
LOC: EMR 17:39
PROVIDERS: Emergency Medicine; EMERGENCY PHYSICIAN Emergency Medicine; FAMILY PHYSICIAN Family Medicine
DX: I48.0 Paroxysmal atrial fibrillation (principal); I10 Essential (primary) hypertension; Z79.01 Long term (current) use of anticoagulants; Z87.891 Personal history of nicotine dependence
CPT/HCPCS: 99284; 96374; 80053; 85025; 93005

== ENCOUNTER 2024-07-18 02:28 | Inpatient (IN) | payer MEDICARE, OTHER, SELFPAY ==
[2024-07-17 21:44] VITALS: BMI 26.4
[2024-07-17 21:58] VITALS: BP 171/74
[2024-07-17 22:05] VITALS: BP 160/59
--- NOTE | 2024-07-17 23:00 | ED.GENMED ---
History of Present Illness
General
Chief Complaint: Musculo-Skeletal Complaint
Source: patient
Time Seen by Provider: 07/17/24 22:45
History of Present Illness
History of Present Illness:
83yoF with a history of atrial fibrillation, hypertension, hyperlipidemia, diabetes presenting for evaluation of multiple complaints. Patient reports developing right wrist pain and redness yesterday. She was seen by her nurse practitioner earlier
today and diagnosed with cellulitis. She was given a prescription for Keflex but has not started this yet. She states that she has felt unwell over the past week and has not been eating or drinking much due to nausea. She states that feels like
'something is wrong.' She reports that she passed out this evening which is why EMS was called. She also reports shortness of breath and brain fog. She was seen in the ED earlier this week for atrial fibrillation.
Past History
Past History
ED Past Medical History: Arrthythmia (Atrial fib), Cancer (Ileum), HTN, NIDDM, Hypothyroidism, Psychiatric and Other (Diverticulitis)
ED Past Surgical History: Appendectomy, Bowel resection (Ileum removed for CA), Cholecystectomy, Gynecological (Hysterectomy) and Tonsilectomy
Social History
Tobacco: Former smoker
Alcohol: Occasional
Drug: None
Personal:
Living: assisted living
Employment: Retired
Family History
Family History: Other (Coronary artery disease, brother with pancreatic cancer, sister with CHF)
Phy Exam
General Physical Exam
General Presentation: well appearing
General Skin: warm and dry
General Habitus: elderly
General Mental: alert
ENT Exam
ENT Exam: normocephalic
Cardiovascular Exam
Cardiovascular Exam: regular rate/rhythm
Pulmonary Exam
Pulmonary Exam: lungs clear, no respiratory distress, no crackles and no wheezing
Musculoskeletal Exam
Musculoskeletal Exam: other (R wrist: Diffuse swelling and erythema to wrist. Exquisitely tender to palpation. ROM decreased 2/2 pain. 2+ radial pulse. )
Skin Exam
Skin Exam: warm/dry
Psychiatric Exam
Psychiatric Exam: agitated and anxious
Course
Orders/Labs/Results
Orders:
Orders
07/17/24 22:15
CR Shoulder, Trauma - Right Urgent
Comment:
Reason For Exam: pain
CR Wrist - Right Min 3 Views Urgent
Comment:
Reason For Exam: pain/swelling
07/17/24 22:54
CR Chest Single View Urgent
Reason For Exam: SOB
07/17/24 22:55
Electrocardiogram (*1) Urgent
Reason for Study: Syncope
EKG- Treatment ONCE
07/17/24 23:00
Cardiac Monitoring- Treatment ONCE
07/17/24 23:32
CRP [C-Reactive Protein] Urgent
Complete Blood Count/With Diff Urgent
Comprehensive Metabolic Panel Urgent
ESR [Erythrocyte Sed Rate] Urgent
Troponin I Urgent
07/18/24 00:03
CT Head W/o Iv Contrast Urgent
Reason For Exam: AMS
07/18/24 00:45
Acetaminophen 1000MG/100Ml [Ofirmev] 1,000 mg in 100 ml IV ONCE
Acetaminophen IV Indication:: ED Narcotic Naive Pt-ONCE
07/18/24 01:05
CeFAZolin 2 GRAM [Ancef] 2 grams in 10 ml IV NOW
07/18/24 01:19
Blood Culture Urgent
FAWAD Source: Blood/Venous
Specimen Description:
07/18/24 01:42
Blood Culture Routine
FAWAD Source: Blood/Venous
Specimen Description:
07/18/24 02:10
Admit/Transfer Patient As Directed
Co-Sign Provider:
Level of Care: Inpatient admission
Assign to:: Telemetry
Physician / Group: José
Diagnosis: R Wrist Cellulitis / Pseudogout
Reason for Telemetry: Arrhythmia
Date to Stop Telemetry: 07/21/24
Time to Stop Telemetry: 11:00
Reason for Hospitalization: R Wrist Cellulitis / Pseudogout
Expected length of stay greater than two midnights?: Yes
ELOS- Estimated Length of Stay in days: 2
I certify the patient meets the requirements for IP care: Yes
PRN Pain Medication Management As Directed
May give lesser potent ordered pain med per pt: Yes
preference::
Protocol:: Medication orders for pain may be administered in a
manner that supports deferring to patient preference
when the pt is:
- Requesting an ordered lesser potent pain medication.
Least to most potent pain medications are defined
as: acetaminophen < NSAID < tramadol < opioids
(morphine, oxycodone, hydromorphone).
- Requesting a lesser dose of the same medication IF
ORDERED.
- Requesting a less intrusive route of administration
if both routes are prescribed by the provider (PO <
IV).
07/18/24 02:12
Code Status As Directed
Resuscitation Status: Do not resuscitate
Reached after discussion with pt or family/Healthcare POA: Yes
DNR Bracelet Application ONCE
07/18/24 03:58
0.9% Sodium Chloride 1000 ml [Nss] 1,000 ml IV 80 mls/hr
Ketorolac [Toradol] 10 mg IV Q6HPRN PRN
07/18/24 03:58
Activity As Directed
Activity Level: Ambulate
With Assistance
I/O [Intake/ Output] As Directed
Frequency: Per unit guidelines
Pneumatic Compression Sleeves As Directed
Type: Knee high
Vital Signs As Directed
Frequency: Per unit guidelines
Oxygen Therapy [O2 Therapy] [RESP] Routine
Titrate/Wean O2 to maintain O2 sat greater than (%): 94
DX Deep Vein Thrombosis Video Routine
07/18/24 04:00
CeFAZolin 2 GRAM [Ancef] 2 grams in 10 ml IV Q8H
07/18/24 Breakfast
Regular
At Your Request: Full Participation
07/18/24 08:00
Acetaminophen [Tylenol] 1,000 mg PO TID
07/18/24 08:13
Basic Metabolic Panel IN AM
Complete Blood Count/No Diff IN AM
07/18/24 18:00
Levothyroxine [Synthroid] 75 mcg PO QPM
07/18/24 22:00
Famotidine [Pepcid] 20 mg PO HS
Valsartan [Diovan] 160 mg PO HS
07/21/24 11:00
DC Protocol for Telemetry ONCE
Abnormal Lab Results
07/17/24
23:32
WBC 16.0 H 10^3/uL
(4.8-10.8)
Hct 35.1 L %
(37.0-47.0)
Abs Immat Gran (auto) 0.1 H 10^3/uL
(0-0.05)
Absolute Neuts (auto) 12.8 H 10^3/uL
(1.4-6.5)
Absolute Monos (auto) 1.5 H 10^3/uL
(0.1-0.6)
Immature Gran % 0.6 H %
(0-0.5)
Neutrophils % 79.7 H %
(42.2-75.2)
Lymphocytes % 9.7 L %
(20.5-51.1)
Monocytes % 9.5 H %
(1.7-9.3)
ESR 81 H mm/hour
(0-20)
Carbon Dioxide 18 L mmol/L
(22-30)
BUN 19 H mg/dl
(7-17)
Glucose 140 H mg/dl
(70-99)
Total Bilirubin 2.6 H mg/dl
(0.2-1.3)
C-Reactive Protein 89.90 H mg/L
(0.0-10.00)
07/17/24 23:32
07/17/24 23:32
Vital Signs
Initial and Last Documented VS:
Initial Vital Signs
Temp Pulse Resp Pulse Ox
98.9 F 79 18 96
07/17/24 21:52 07/17/24 21:52 07/17/24 21:52 07/17/24 21:52
Last Documented Vital Signs
Temp Pulse Resp BP Pulse Ox
98 F 62 16 162/61 98
07/18/24 07:20 07/18/24 07:20 07/18/24 07:20 07/18/24 07:20 07/18/24 07:20
MDM/Problems Addressed
Differential Diagnosis Includes:
83yoF here with multiple complaints. Primary complaint is R wrist pain/swelling x 1 day. Seen outpatient earlier today and prescribed abx for wrist cellulitis. Also c/o brain fog and syncope. She is very anxious on exam and difficult to redirect.
VSS. There is diffuse swelling/erythema to R wrist with significant tenderness. Differential diagnosis includes but is not limited to: cellulitis, septic arthritis, gout, other inflammatory arthritis
Initial ED plan: Check cardiac labs, ESR/CRP, R wrist x-rays, CXR, and CT head.
*EKG
Interpreted by ED Provider?: Yes
EKG Intrepretation Date: 07/17/24
Heart Rate: 77
Rate: normal
Rhythm: sinus
[place]: normal axis
Interval: normal interval
QRS Pattern: right bundle branch block
Ischemia: no ischemia
*Critical Care Note
Total Time (30-74mins, 75-104mins- exclusive of procedures): Not Applicable
Update Note
Update Note:
Leukocytosis noted with a WBC of 16. Both ESR/CRP elevated. X-rays of wrist show chondrocalcinosis. Patient spiked a fever of 101.2 during ED stay. Blood cultures and IV Ancef ordered. She was admitted for further management.
ED Attending Note
-
Portions of this chart may have been created with voice recognition software.� Occasional wrong word or��sound alike� substitutions may have occurred due to the inherent limitations of voice recognition software.
Discharge Plan
Departure
Patient Disposition: Admit
Date of Disposition: 07/18/24
Time of Disposition: 01:34
Presentation/result/management discussed w/ accepting MD/DO: Hospitalist
Discharge Problem:
Cellulitis of right wrist
Interventions
Interventions:
*Risk Screen - Suicide Last Done: 07/17/24 21:52
*General Assessment Last Done: 07/17/24 21:57
*Neglect/Abuse Screening Last Done: 07/17/24 21:57
*Nursing Disposition Last Done: 07/18/24 03:57
ED-Musculoskeletal Assessment Last Done: 07/17/24 22:15
Discharge Date and Time
Discharge Date/Time: 07/18/24 03:58
[2024-07-17 23:51] VITALS: BP 152/81
[2024-07-18] VITALS (9 sets, daily range): BP systolic 121–176; BP diastolic 58–89; BMI 25.6
[2024-07-18 00:04] LABS: % Basophils 0.4 % (0-2); % Eosinophils 0.1 % (0-6); % Immature Granulocytes 0.6 % (0-0.5); % Lymphocytes 9.7 % (20.5-51.1); % Monocytes 9.5 % (1.7-9.3); % Neutrophils 79.7 % (42.2-75.2); Absolute Basophils 0.1 10^3/uL (0-0.2); Absolute Immature Granulocytes 0.1 10^3/uL (0-0.05); Absolute Lymphocytes 1.6 10^3/uL (1.2-3.4); Absolute Monocytes 1.5 10^3/uL (0.1-0.6); Absolute Neutrophils 12.8 10^3/uL (1.4-6.5); Hematocrit 35.1 % (37.0-47.0); Mean Corp Hgb Conc. 34.2 g/dL (33.0-37.0); Mean Corpuscular Hgb 28.2 pg (27.0-31.0); Mean Corpuscular Volume 82.4 fL (81.0-99.0); Mean Platelet Volume 10.4 fL (7.4-10.4); Nucleated Red Blood Cells % 0 %; Platelet Count 299 10^3/uL (130-400); Red Blood Cell Count 4.26 10^6/uL (4.20-5.40); Red Cell Dist. Width 14.4 % (11.5-14.5)
[2024-07-18 00:14] LABS: ALT (SGPT) 12 U/L (0-35); AST (SGOT) 22 U/L (14-36); Alkaline Phosphatase 74 U/L (38-126); Blood Urea Nitrogen 19 mg/dl (7-17); Calcium 9.7 mg/dl (8.4-10.2); Carbon Dioxide 18 mmol/L (22-30); Chloride 102 mmol/L (98-107); Erythrocyte Sed Rate 81 mm/hour (0-20); Glucose 140 mg/dl (70-99); Potassium 4.3 mmol/L (3.5-5.1); Sodium 135 mmol/L (135-145); Total Bilirubin 2.6 mg/dl (0.2-1.3); Total Protein 7.3 g/dl (6.3-8.2); eGFR > 60.00
[2024-07-18 00:25] LABS: Troponin I < 0.012 ng/ml
[2024-07-18] MEDS: OFIRMEV 100 IV (00:56)
[2024-07-18] MEDS: ANCEF 10 IV ×4 (01:33→23:03)
--- NOTE | 2024-07-18 02:15 | HPS.HSE ---
Family Physician
-
Family Physician: Jossy Prajapati
Chief Complaint
-
Confusion, Fever, Wrist Pain
History of Present Illness
Patient is an 83y F with PMH significant for hypertension, DM-II and A-Fib who presents to ED complaining of right wrist pain and 'brain fog'. Patient states that she noted pain and redness in the R wrist on Saturday AM. She was seen by staff at
her facility and prescribed Keflex. However, she did not start this medication as she was also noted to have fever and confusion and was sent to the ED for further evaluation.
In the ED, patient is awake and alert but is confused. She has some difficulty providing history due to her confusion. She is aware that she is 'not making sense'.
Patient complains of pain in the R wrist and the R shoulder. She denies any recent fall, injury or trauma.
Patient reports prior history of pseudogout and notes that she was treated for this several weeks ago.
She was recently seen in the ED here for paroxysmal A-Fib. This resolved with Cardizem and she was discharged to home.
She was newly started on Eliquis on 07/16/24.
Medical History
Past Medical History
Past Medical History: Reports Other
Additional Past Medical History:
Paroxysmal A-Fib
Hypertension
DM-II
Colon Cancer
Hypothyroidism
DDD
Pseudogout
Past Surgical History: Reports Other
Additional Past Surgical History:
Appendectomy
T&A
Cholecystectomy
Right Hemicolectomy
Sigmoidectomy
Cataracts
LEI / BSO
Social History
Tobacco: Former Smoker
Alcohol: None
Drug: None
Family History
Family History: Not pertinent
Allergies / Home Medications
Allergies reflects when Allergies were last updated in [employer].
Home Medications with original date entered in [employer]
Allergy/Medication List:
Allergies
Allergy/AdvReac Type Severity Reaction Status Date / Time
allopurinol [Allopurinol] Allergy Rash,itchy Verified 07/17/24 22:18
azithromycin Allergy difficulty Verified 07/17/24 22:18
swelling;thick
tongue
bee pollen Allergy Anaphylaxis Verified 07/17/24 22:18
bee venom protein (honey bee) Allergy Anaphylaxis Verified 07/17/24 22:18
Cephalosporins Allergy Unknown Verified 07/17/24 22:18
codeine Allergy hallucinati Verified 07/17/24 22:18
on
diphenhydramine HCl Allergy irregular Verified 07/17/24 22:18
[From Benadryl] heart beat
latex [Latex] Allergy Rash,itchin Verified 07/17/24 22:18
g
lecithin, soy Allergy Hives Verified 07/17/24 22:18
metronidazole [From Flagyl] Allergy N&V,irregular Verified 07/17/24 22:18
heart beat
Penicillins Allergy Anaphylaxis Verified 07/17/24 22:18
Shellfish *RETIRED-07/01/12 Allergy Hives Verified 07/17/24 22:18
[Shellfish]
soy Allergy Hives Verified 07/17/24 22:18
Eiwtqlm-EPJ-YnU Reductase Allergy Rash Verified 07/17/24 22:18
Inhibitor
[Fdayymm-Kcd-Zph Reductase
Inhibitor]
Sulfa (Sulfonamide Allergy Rash Verified 07/17/24 22:18
Antibiotics)
sulfasalazine Allergy Rash Verified 07/17/24 22:18
tetracycline [Tetracycline] Allergy Pharmacy Verified 07/17/24 22:18
to Review
tuberculin, purified protein Allergy arm Verified 07/17/24 22:18
deriva swelling
vancomycin Allergy thick Verified 07/17/24 22:18
tongue,difficulty
swallowing
artificial coloring Allergy Mild Rash Uncoded 07/17/24 22:18
opiods Allergy manic Uncoded 07/17/24 22:18
state,loss
of
inhibitions
Home Medications
cholecalciferol (vitamin D3) 50 mcg (2,000 unit) tablet 2,000 units PO DAILY Supplement 12/19/21
ondansetron 4 mg disintegrating tablet 4 mg PO Q6HPRN PRN nausea 01/22/22
vit C 250 mg-vit E 90 mg-zinc 40 mg-copper 1 [id number] capsule (PreserVision AREDS-2) 1 ea PO BID 01/22/22
cetirizine 10 mg tablet (Zyrtec) 5 mg PO HSPRN PRN allergies 07/13/24
cyanocobalamin (vitamin B-12) 1,000 mcg tablet 1,000 mcg PO DAILY 07/13/24
famotidine 40 mg tablet 40 mg PO HS 07/13/24
levothyroxine 75 mcg tablet 75 mcg PO QPM 07/13/24
sodium chloride 0.65 % nasal spray aerosol (Saline Mist) 2 spray intranasal DAILYPRN PRN conjestion 07/13/24
triamcinolone acetonide 55 mcg nasal spray aerosol (Nasacort) 2 spray intranasal DAILYPRN PRN conjestion 07/13/24
valsartan 160 mg tablet 160 mg PO HS 07/13/24
apixaban 5 mg tablet (Eliquis) 5 mg PO BID 07/18/24
cephalexin 500 mg capsule 500 mg PO Q12H 07/18/24
meclizine 25 mg tablet 25 mg PO Q8 PRN NIB 07/18/24
Review of Systems
-
History Source: Patient
A 12 point ROS was completed and negative except as noted: Yes
Constitutional: Reports Fever; Denies Chills
EENT: Denies Sore Throat
Respiratory: Denies Cough or Trouble Breathing
Cardiac: Denies Chest Pain or Palpitations
Abdomen/GI: Denies Abdominal Pain, Nausea, Vomiting or Diarrhea
: Denies Dysuria or Frequency
Musculoskeletal: Reports Joint Pain and Joint Swelling; Denies Edema
Skin: Reports Other (Redness)
Neurological: Denies Dizzy or Headache
Psych: Reports Other (Confusion)
Physical Exam
Vital Signs
Vital Signs
Temp Pulse Resp BP Pulse Ox
101.2 F H 67 12 136/67 98
07/18/24 01:08 07/18/24 01:45 07/18/24 01:45 07/18/24 01:38 07/18/24 01:15
Physical Exam
General: Other (83y F in no acute distress. Somewhat confused.)
HEENT: Other (Dry MM. Neck supple.)
Respiratory: Clear; No Wheezes, Rales or Rhonchi
Cardiac: S1/S2 and Regular Rhythm; No Murmur
GI: Soft, Non Tender, Non Distended and Normal Bowel Sounds
Musculoskeletal: No Clubbing, No Cyanosis and Other (Erythema, increased warmth and tenderness around the R wrist and hand. Pain with ROM of the wrist and fingers. Tenderness over the posterior R shoulder / scapular spine. No erythema / warmth
appreciated here.)
Neuro: Awake and Alert
Psych: Confused
Laboratory Results
-
07/17/24 23:32
07/17/24 23:32
Laboratory Results
Total Bilirubin 2.6 mg/dl (0.2-1.3) H 07/17/24 23:32
AST 22 U/L (14-36) 07/17/24 23:32
ALT 12 U/L (0-35) 07/17/24 23:32
Alkaline Phosphatase 74 U/L (38-126) 07/17/24 23:32
Troponin I < 0.012 ng/ml 07/17/24 23:32
Impression/Plan
-
A/P: Patient is an 83y F with PMH significant for hypertension, DM and PA-Fib who presents to ED for evaluation of R wrist pain, swelling and redness and fever / confusion.
Right Wrist Cellulitis / Arthritis
Sepsis secondary to the above
Acute TME secondary to the above
- Admit for further evaluation and treatment.
- Patient presents with fever, leukocytosis and acute TME with exam consistent with R wrist cellulitis or septic arthritis.
- IV abx with Ancef (home record does NOT include cephalosporins in abx - she does have listed allergies to essentially all other abx).
- Supportive care including IV Toradol, etc for pain control.
- Follow for clinical improvement, improvement in fever curve, mental status, etc.
- Ortho evaluation for additional recommendations.
- Consider trial of steroid therapy if no improvement with antibiotics.
Paroxysmal Atrial Fibrillation
- Stable. Currently in sinus rhythm
- ED visit on 07/13 with A-Fib - converted after Cardizem.
- Just started on Eliquis (07/16 per [facility] record) and will hold this for now with need for NSAIDs +/- steroids, etc.
- Monitor on telemetry.
DM-II
- Listed diagnosis but not currently on any DM medications.
- Follow glucose and cover with SSI if needed.
- Check A1C.
GERD
- Stable. Continue H2 martha.
DVT Prophylaxis: SCDs
Code Status: DNR
[2024-07-18 04:06] LABS: Glucose - Point of Care 165 mg/dl (70-99)
--- NOTE | 2024-07-18 05:49 | PTCARENOTE ---
Receive the pt from ER. Pt alert oriented X3, calm and cooperative. Pt assist X1 to her bed, feels weak. Pt oriented to the room, call cooper within rech. Pt can be forgetful at times. Bed alarm in place. Pt reports mild pain to the right shoulder and
right hand (4/10). The right hand is red and slightly extending to the forearm. Good radial pulse, sensation and capillary refill. Pt is on NSR on telemonitor. VSS (98.1, HR=65, RR=20, MC=006/65, SpO2=96% on RA). Will continue to monitor the pt.
[2024-07-18] MEDS: NSS 1000 IV ×2 (06:01→19:40)
[2024-07-18 07:14] LABS: Glucose - Point of Care 136 mg/dl (70-99)
[2024-07-18] MEDS: TYLENOL 1000 MG PO ×3 (08:18→22:08)
[2024-07-18 08:51] LABS: Blood Urea Nitrogen 19 mg/dl (7-17); Calcium 8.7 mg/dl (8.4-10.2); Carbon Dioxide 20 mmol/L (22-30); Chloride 107 mmol/L (98-107); Estimated Creatinine Clearance 38 ml/min; Glucose 119 mg/dl (70-99); Hematocrit 32.8 % (37.0-47.0); Hemoglobin 11.4 g/dL (12.0-16.0); Mean Corp Hgb Conc. 34.8 g/dL (33.0-37.0); Mean Corpuscular Hgb 28.6 pg (27.0-31.0); Mean Corpuscular Volume 82.2 fL (81.0-99.0); Mean Platelet Volume 9.9 fL (7.4-10.4); Platelet Count 248 10^3/uL (130-400); Potassium 3.7 mmol/L (3.5-5.1); Red Blood Cell Count 3.99 10^6/uL (4.20-5.40); Red Cell Dist. Width 14.4 % (11.5-14.5); Sodium 139 mmol/L (135-145); White Blood Cell Count 12.2 10^3/uL (4.8-10.8); eGFR > 60.00
--- NOTE | 2024-07-18 09:50 | CON.ORTHO ---
Consultation
-
Date/Time Consultation Requested: 07/18/2024
Date/Time Consultation Performed: 07/18/2024 7:30 am
Requesting Provider: Dr. Kumar
Performing Provider: Kay De Paz PA-C, for Dr. Tobias Toribio
Reason for Consultation: Right wrist pain, swelling, and erythema, r/o septic arthritis
Consultation - Orthopedics
History
History of present illness: This is an 83-year-old female with a past medical history significant for hypertension, DM type II and A-fib with recent initiation of Eliquis, who presented to [facility] emergency department overnight
complaining of right wrist pain, swelling, and erythema. She resides at [facility] in [place] and reports after noticing redness along the dorsum of her right wrist yesterday morning, she was seen by her PCP and prescribed Keflex. She was
not able to start the medication, but continued to experience confusion, fever, and pain, prompting her to present to the emergency department. She was started on IV Ancef secondary to multiple antibiotic allergies. This morning, she reports her
pain, swelling, and redness have improved. She continues to have discomfort, mainly in the dorsum of her wrist, particularly with motion. This morning, she does also report some pain in the lateral aspect of the elbow, particularly when pushing on
the lateral epicondyle. She also reports posterior shoulder pain, none of which are as extreme as her right wrist pain. She does have a history of pseudogout, and admits she recently had an episode of a flare within the last several days and her
right great toe. Our orthopedic specialty was consulted to rule out infection versus inflammatory arthropathy.
Past medical history: Significant for paroxysmal atrial fibrillation, hypertension, DM type II, colon cancer, hypothyroidism, degenerative disc disease, pseudogout.
Past surgical history: Significant for appendectomy, tonsillectomy and adenoidectomy, cholecystectomy, right hemicolectomy, sigmoidectomy, cataracts, HANDY/BSO.
Social history: Never tobacco smoker, no recent tobacco use. Denies alcohol use. Lives at [facility].
Family history: Noncontributory.
Review of systems: All systems reviewed and negative except what is mentioned in HPI.
Allergies / Home Medications
Allergy/AdvReac Type Severity Reaction Status Date / Time
allopurinol [Allopurinol] Allergy Rash,itchy Verified 07/17/24 22:18
azithromycin Allergy difficulty Verified 07/17/24 22:18
swelling;thick
tongue
bee pollen Allergy Anaphylaxis Verified 07/17/24 22:18
bee venom protein (honey bee) Allergy Anaphylaxis Verified 07/17/24 22:18
Cephalosporins Allergy Unknown Verified 07/17/24 22:18
codeine Allergy hallucinati Verified 07/17/24 22:18
on
diphenhydramine HCl Allergy irregular Verified 07/17/24 22:18
[From Benadryl] heart beat
latex [Latex] Allergy Rash,itchin Verified 07/17/24 22:18
g
lecithin, soy Allergy Hives Verified 07/17/24 22:18
metronidazole [From Flagyl] Allergy N&V,irregular Verified 07/17/24 22:18
heart beat
Penicillins Allergy Anaphylaxis Verified 07/17/24 22:18
Shellfish *RETIRED-07/01/12 Allergy Hives Verified 07/17/24 22:18
[Shellfish]
soy Allergy Hives Verified 07/17/24 22:18
Owqpwqk-GRZ-ChZ Reductase Allergy Rash Verified 07/17/24 22:18
Inhibitor
[Fxyrapr-Xhl-Wea Reductase
Inhibitor]
Sulfa (Sulfonamide Allergy Rash Verified 07/17/24 22:18
Antibiotics)
sulfasalazine Allergy Rash Verified 07/17/24 22:18
tetracycline [Tetracycline] Allergy Pharmacy Verified 07/17/24 22:18
to Review
tuberculin, purified protein Allergy arm Verified 07/17/24 22:18
deriva swelling
vancomycin Allergy thick Verified 07/17/24 22:18
tongue,difficulty
swallowing
artificial coloring Allergy Mild Rash Uncoded 07/17/24 22:18
opiods Allergy manic Uncoded 07/17/24 22:18
state,loss
of
inhibitions
�Medication �Instructions �Recorded
cholecalciferol (vitamin D3) 50 2,000 units PO DAILY Supplement 12/19/21
mcg (2,000 unit) tablet
ondansetron 4 mg disintegrating 4 mg PO Q6HPRN PRN nausea 01/22/22
tablet
vit C 250 mg-vit E 90 mg-zinc 40 1 ea PO BID 01/22/22
mg-copper 1 [id number]
capsule (PreserVision AREDS-2)
cetirizine 10 mg tablet (Zyrtec) 5 mg PO HSPRN PRN allergies 07/13/24
cyanocobalamin (vitamin B-12) 1,000 mcg PO DAILY 07/13/24
1,000 mcg tablet
famotidine 40 mg tablet 40 mg PO HS 07/13/24
levothyroxine 75 mcg tablet 75 mcg PO QPM 07/13/24
sodium chloride 0.65 % nasal spray 2 spray intranasal DAILYPRN PRN 07/13/24
aerosol (Saline Mist) conjestion
triamcinolone acetonide 55 mcg 2 spray intranasal DAILYPRN PRN 07/13/24
nasal spray aerosol (Nasacort) conjestion
valsartan 160 mg tablet 160 mg PO HS 07/13/24
apixaban 5 mg tablet (Eliquis) 5 mg PO BID 07/18/24
cephalexin 500 mg capsule 500 mg PO Q12H 07/18/24
meclizine 25 mg tablet 25 mg PO Q8 PRN NIB 07/18/24
Vital Signs / Lab Results
Temp Pulse Resp BP Pulse Ox
98 F 62 16 162/61 98
07/18/24 07:20 07/18/24 07:20 07/18/24 07:20 07/18/24 07:20 07/18/24 07:20
Tmax 101.2 �F overnight.
White blood cell count 16.
ESR 81.
CRP 89.90
07/18/24 08:13
07/18/24 08:13
Physical Examination:
General: Well-developed, well-nourished female in no acute distress at rest. AAOx4.
HEENT: Atraumatic, normocephalic, neck supple.
Lungs: Nonlabored breathing on room air, no audible wheezing.
Right wrist: Mild diffuse swelling about the dorsum of the wrist with associated erythema. There is mild erythema on the volar aspect of the wrist, but streaking improved with initiation of antibiotics. Able to make complete fist with some
discomfort noted in the volar aspect of the wrist. Limited extension secondary to pain.
Right elbow: No evidence of erythema or swelling. Moderate tenderness to palpation over the lateral epicondyle. Full range of motion with mild discomfort.
Right shoulder: No evidence of erythema or swelling. No warmth. Range but it secondary to his comfort of the entire upper extremity.
Radiographic studies:
X-rays of the right wrist from 07/18/2024 shows evidence of diffuse soft tissue swelling, cannot within the carpus, and degenerative changes about the first CMC joint.
X-rays of the right shoulder show evidence of a large soft tissue calcification 2.5 cm x 1.1 cm consistent with calcific tendinitis. Moderate degenerative changes about the AC joint noted.
Assessment / Plan
Assessment: Right wrist swelling and erythema, rule out septic arthritis versus pseudogout/gout.
Plan: After speaking with Eva, she does report improvement in regards to her symptoms with initiation of IV antibiotics. Her clinical picture seems consistent with pseudogout/gout based on the level of swelling and the erythema noted.
However, she did have a fever overnight, elevated white count, as well as elevated ESR and CRP. As a result, recommendation is to proceed with IR aspiration of the right wrist to send for fluid analysis to include cell count, crystals, Gram stain,
and culture/sensitivity. She will continue with IV antibiotics until fluid analysis results are available. If these show any crystals, she would benefit from initiation of prednisone, but would recommend holding off on this until aspiration is
completed. Continue with current pain management and activities to tolerance in the meantime. We will continue to follow along.
[2024-07-18 10:14] LABS: Glycohemoglobin (HgbA1c) 6.4 % (4.0-5.6)
--- NOTE | 2024-07-18 11:58 | PN.IRAD.UPD ---
Update Note - IRAD
- -
Spoke with Kady in Microbiology, OK to send specimen in syringe with needle as the drops of fluid are in the hub of the needle. Walked it to the lab, signed the specimen in and handed it directly to Kady.
--- NOTE | 2024-07-18 12:05 | PTCARENOTE ---
Pt received back from IR R wrist aspiration. Band-aid intact on right wrist.
[2024-07-18 13:06] LABS: Glucose - Point of Care 134 mg/dl (70-99)
--- NOTE | 2024-07-18 14:40 | PTCARENOTE ---
This nurse assumed care. Pt. stable at this time with no c/o pain. Resting in bed with family at bedside.
--- NOTE | 2024-07-18 15:23 | W.PN.UPDATE ---
Update Note
Progress Note Update
Patient seen and examined after postmidnight admission. No new complaints. Vital signs stable. No acute distress, awake and alert. Regular rate and rhythm, normal S1-S2. Clear to auscultation bilaterally. Right wrist with soft tissue edema and
mild erythema. It is tender to palpation. Interventional radiology attempted joint aspiration but did not get enough fluid for crystal analysis. Leukocytosis is improving. Continue IV Ancef. Orthopedics is following. Consult infectious disease.
--- NOTE | 2024-07-18 15:27 | PTCARENOTE ---
Dr. Robles made aware pt. b/p 167/86. No new orders at this time. Will continue to monitor and report.
--- NOTE | 2024-07-18 16:11 | CM ---
CM following re: discharge planning.
Reviewed pt's charr, met with pt and 2 pt's friends at bedside,.
Pt is an 83 year old female, admitted with primary dx of Confusion, Fever, Wrist Pain.
Pt reports she has been living in an indecent apartment at [facility] [address] [facility] for the past 15 years, has 4 supportive children. pt described herself as independent in all areas [employer]. pt stated she just returned from [place].
PCP: Jossy Prajapati
Pharmacy: [facility].
D/C plan: return back to [facility] with anticipated no needs.
CM will follow with discharge plan updates as hospitalization progresses
[2024-07-18] MEDS: SYNTHROID 75 MCG PO (17:00)
[2024-07-18 17:04] LABS: Glucose - Point of Care 115 mg/dl (70-99)
[2024-07-18] MEDS: ZOFRAN 4 MG IV (18:40)
[2024-07-18] MEDS: TORADOL 10 MG IV (19:41)
[2024-07-18 21:14] LABS: Glucose - Point of Care 120 mg/dl (70-99)
[2024-07-18] MEDS: PEPCID 20 MG PO (22:08)
[2024-07-18] MEDS: DIOVAN 160 MG PO (22:08)
[2024-07-19] VITALS (8 sets, daily range): BP systolic 116–173; BP diastolic 58–91
[2024-07-19] MEDS: NSS 1000 IV (06:07)
[2024-07-19] MEDS: ANCEF 10 IV (07:57)
[2024-07-19] MEDS: TYLENOL 1000 MG PO ×3 (07:57→21:44)
[2024-07-19 08:10] LABS: Glucose - Point of Care 114 mg/dl (70-99)
[2024-07-19 08:20] LABS: Hemoglobin 10.2 g/dL (12.0-16.0); Mean Corpuscular Hgb 28.4 pg (27.0-31.0); Mean Corpuscular Volume 83.6 fL (81.0-99.0); Mean Platelet Volume 10.5 fL (7.4-10.4); Platelet Count 281 10^3/uL (130-400); Red Blood Cell Count 3.59 10^6/uL (4.20-5.40); Red Cell Dist. Width 14.5 % (11.5-14.5); White Blood Cell Count 9.9 10^3/uL (4.8-10.8)
[2024-07-19 08:30] LABS: Blood Urea Nitrogen 26 mg/dl (7-17); Calcium 8.6 mg/dl (8.4-10.2); Carbon Dioxide 19 mmol/L (22-30); Chloride 110 mmol/L (98-107); Estimated Creatinine Clearance 35 ml/min; Glucose 104 mg/dl (70-99); Potassium 3.8 mmol/L (3.5-5.1); Sodium 140 mmol/L (135-145); eGFR 55.55
--- NOTE | 2024-07-19 08:56 | W.PN.UPDATE ---
Update Note
Progress Note Update
Patient seen and examined
Right wrist pain is significantly improved. She has great ROM with no pain.
Based on her migrating arthralgia, including shoulder, elbow and great toe pain, and her history of gout in the past, I suspect this is gout or pseudogout
Her wrist aspiration results are still pending.
Based on her improved clinical picture, I'm ok with her being discharged and follow up on the culture results.
Patient understands that if the cultures are positive, she needs to return [facility] for further care.
Follow up in the office in 7-10 days after discharge
--- NOTE | 2024-07-19 10:24 | W.PN.HOSP.TC ---
Addendum entered and electronically signed by Simba Robles MD 07/19/24 12:59:
Case discussed with Dr. Ventura. D/c on [address] Ventura is ok with short course of steroids.
Total time spent on d/c = 35 min. This included today's physical exam, progress note, review of laboratory and diagnostic data, preparation of discharge documents and prescriptions, and discussions about the pt's hospital course and discharge plan
with the patient and other medical insurance biller involved in the patient's care.
Original Note:
Today's Communication/Plan
-
see bold
Assessment / Plan
Assessment / Plan
Gen: NAD, AAOx3.
Eyes: EOMI, PERRLA, no scleral icterus.
Neck: supple.
CV: remains RRR, +S1/S2, no m/r/g.
Resp: remains CTAB, no rales, wheezes, or rhonchi.
Abd: +BS, soft, NT, ND
Skin: No rashes. Right wrist with soft tissue edema and minimal erythema. Nontender to palpation.
Neuro: CN 2-12 intact, non-focal.
Psych: Normal mood and affect.
Sepsis and an acute metabolic encephalopathy due to R wrist septic vs crystalline arthritis:
-Continue Ancef, ID c/s pending
-Leukocytosis has resolved
-Interventional radiology attempted joint aspiration but did not get enough fluid for crystal analysis.
Other problems:
Paroxysmal Atrial Fibrillation: resume Eliquis after seen by ID
Hypothyroidism: Continue Levoxyl
DM2: a1c 6.4%, SSI/accuchecks
Essential hypertension: Continue ARB
GERD: switch to PPI
DNR/SCDs
Anticipated Discharge: Within 24 hours
Subjective/Interval History
-
Date of Service: July 19, 2024
Denies R wrist pain.
Objective Data
-
Labs:
Laboratory Results
07/19/24
07:42
WBC 9.9
Hgb 10.2 L
Hct 30.0 L
Plt Count 281
Sodium 140
Potassium 3.8
Chloride 110 H
Carbon Dioxide 19 L
BUN 26 H
Creatinine 1.0
Glucose 104 H
Calcium 8.6
Vital Signs:
Vital Signs
Temp Pulse Resp BP Pulse Ox
97.6 F 62 16 134/91 99
07/19/24 07:18 07/19/24 07:18 07/19/24 07:18 07/19/24 07:18 07/19/24 07:18
I&O
07/18/24 07/19/24 07/20/24
06:59 06:59 06:59
Intake Total 80 / 80 960 / 960
Balance 80 / 80 960 / 960
--- NOTE | 2024-07-19 12:22 | CON.ID ---
Consultation
-
Date/Time Consultation Requested: 07/18/24 1345
Date/Time Consultation Performed: 07/19/2024 1156
Requesting Provider: Dr. Robles
Performing Provider: Dr. Ventura
Reason for Consultation: Right wrist swelling
Chief Complaint / Past History
History of Present Illness
Eva Gan is an 83-year-old female being evaluated at the request of Dr. Robles in regards to right wrist swelling. History is obtained from chart review, along with patient interview.
The patient reports a history of gout and notes that she was in her usual state of health until several days ago when she began to have some left toe swelling along with some pain. The next day she began to have some right wrist swelling, and some
erythema developed in the area. She lives at a assisted living and was seen by an IT PROJECT MANAGER who diagnosed her with cellulitis and possible gout. She was prescribed Keflex but did not start it as she ultimately felt she needed further evaluation and she
was sent to the emergency room on 07/17. In the ER, she noted several complaints including generally feeling unwell for the past week or so. She admits to some nausea and reported to the ER staff she felt 'something is wrong'. She believes that
she passed out on the evening that she was brought in. She admits to 'brain fog'. Review of ER notes indicate that she was in the ER earlier in the week for atrial fibrillation.
At presentation she was noted to have erythema. She was started on empiric antibiotics (cefazolin). Orthopedics has been consulted. The wrist joint was tapped, although only enough fluid for culture was obtained. At today's evaluation, the
patient reports marked improvement and almost complete resolution of prior erythema. She also notes improvement in pain. 1 solitary fever was noted while in the ER. She has been afebrile since that time.
Past History
Additional Past Medical History:
A-fib
Dyslipidemia
DM
HTN
Hypothyroidism
Diverticulitis
Hx ileal cancer
Gout
Additional Past Surgical History:
Appendectomy
Bowel resection
Cholecystectomy
LEI
Tonsillectomy
Allergy History:
allopurinol [Allopurinol] Allergy (Verified 07/17/24 22:)
Rash,itchy
azithromycin Allergy (Verified 07/17/24 22:18)
difficulty swelling;thick tongue
bee pollen Allergy (Verified 07/17/24 22:18)
Anaphylaxis
bee venom protein (honey bee) Allergy (Verified 07/17/24 22:18)
Anaphylaxis
Cephalosporins Allergy (Verified 07/17/24 22:18)
Unknown
codeine Allergy (Verified 07/17/24:18)
hallucination
diphenhydramine HCl [From Benadryl] Allergy (Verified 07/17/24 22:18)
irregular heart beat
latex [Latex] Allergy (Verified 07/17/24 22:18)
Rash,itching
lecithin, soy Allergy (Verified 07/17/24 22:18)
Hives
metronidazole [From Flagyl] Allergy (Verified 07/17/24 22:18)
N&V,irregular heart beat
Penicillins Allergy (Verified 07/17/24 22:18)
Anaphylaxis
Shellfish *RETIRED-07/01/12 [Shellfish] Allergy (Verified 07/17/24 22:18)
Hives
soy Allergy (Verified 07/17/24 22:18)
Hives
Wjmbzvy-FCA-TkM Reductase Inhibitor [Aoicsgm-Coz-Lvv Reductase Inhibitor] Allergy (Verified 07/17/24 22:18)
Rash
Sulfa (Sulfonamide Antibiotics) Allergy (Verified 07/17/24 22:18)
Rash
sulfasalazine Allergy (Verified 07/17/24 22:18)
Rash
tetracycline [Tetracycline] Allergy (Verified 07/17/24 22:18)
Pharmacy to Review
tuberculin, purified protein deriva Allergy (Verified 07/17/24 22:18)
arm swelling
vancomycin Allergy (Verified 07/17/24 22:18)
thick tongue,difficulty swallowing
artificial coloring Allergy (Mild, Uncoded 07/17/24 22:18)
Rash
opiods Allergy (Uncoded 07/17/24 22:18)
manic state,loss of inhibitions
Medications Reviewed: Yes
Current Antibiotics:
cefazolin
Social History
Tobacco: Former Smoker
Alcohol: None
Drug: None
Living: Assisted Living
Employment: Retired
Family History
Family History: Not Pertinent
Review of Systems
Vital Signs
Temp Pulse Resp BP Pulse Ox
97.8 F 56 18 173/75 100
07/19/24 11:00 07/19/24 11:00 07/19/24 11:00 07/19/24 11:00 07/19/24 11:00
Physical Exam
Physical Exam
Constitutional: No Acute Distress, Comfortable and Non-toxic
Eyes: No Conjunctival Hemorrhage and Sclera Anicteric
Cardiovascular: S1/S2; Negative S3/S4
Pulmonary: Non Labored
Gastrointestinal: Soft and Non Tender
Musculoskeletal: Joint Swelling (right wrist. Minimal erythema or tenderness.)
Skin: Warm and Dry; Negative Rash or Jaundice
Neurological: Awake and Alert
Lab / Diagnostic Study Results
07/19/24 07:42
07/19/24 07:42
Abs Immat Gran (auto) 0.1 10^3/uL (0-0.05) H 07/17/24 23:32
Absolute Neuts (auto) 12.8 10^3/uL (1.4-6.5) H 07/17/24 23:32
Absolute Lymphs (auto) 1.6 10^3/uL (1.2-3.4) 07/17/24 23:32
Absolute Monos (auto) 1.5 10^3/uL (0.1-0.6) H 07/17/24 23:32
Absolute Basos (auto) 0.1 10^3/uL (0-0.2) 07/17/24 23:32
Immature Gran % 0.6 % (0-0.5) H 07/17/24 23:32
Neutrophils % 79.7 % (42.2-75.2) H 07/17/24 23:32
Lymphocytes % 9.7 % (20.5-51.1) L 07/17/24:
Monocytes % 9.5 % (1.7-9.3) H 07/17/24 23:32
Eosinophils % 0.1 % (0-6) 07/17/24:
Basophils % 0.4 % (0-2) 07/17/24:32
ESR 81 mm/hour (0-20) H 07/17/24 23:32
C-Reactive Protein 89.90 mg/L (0.0-10.00) H 07/17/24 23:32
Microbiology Results
Micro:
07/18/24 09:35 Body Fluid Culture - Preliminary
Joint Fluid No Growth After 18-24 Hours
Gram Stain - Preliminary
07/18/24 01:42 Blood Culture - Preliminary
Blood/Venous No Growth in 24 hours- Final report to follow
07/18/24 01:19 Blood Culture - Preliminary
Blood/Venous No Growth in 24 hours- Final report to follow
07/18/24 09:24 MRSA Screen - Pending
Nose
Assessment / Plan
Right wrist swelling/erythema
- not clear if 2* cellulitis or crystal deposition disease
- currently improved.
A-fib
Dyslipidemia
DM
HTN
Hypothyroidism
Diverticulitis
Hx ileal cancer
Gout
Recommendations:
At present, right wrist appears clinically improved.
No current evidence of septic arthritis.
Not sure whether cellulitis was previously present.
Transition to Keflex, to continue with an additional 3-day course.
Care Review
Plan reviewed with: Physician (Hospitalist)
[2024-07-19 12:26] LABS: Glucose - Point of Care 104 mg/dl (70-99)
[2024-07-19] MEDS: PROTONIX 40 MG PO (12:44)
--- NOTE | 2024-07-19 13:38 | CM ---
CM following re: discharge planning.
Reviewed pt's chart, met with pt.
Discharge order noted. Pt is aware, expressed her agreement with discharge. IMM reviewed, placed on chart, pt has a copy.
Pt reports she is independent with functional ability and she will take Uber to get home. pt stated there will be a part for her upcoming birthday at 5:00 p.m. at [facility].
D/C plan: home no needs. pt will take Uber to get home.
[2024-07-19] MEDS: DELTASONE 20 MG PO (14:26)
--- NOTE | 2024-07-19 14:30 | PTCARENOTE ---
Pt's pharmacy is not open today to deliver meds to [facility]. Pt also does not have a family member to transport home today. Medications and transportation available tomorrow. Dr Robles notified. Discharged cancelled for Saturday.
[2024-07-19] MEDS: KEFLEX 500 MG PO ×2 (16:06→21:45)
[2024-07-19] MEDS: SYNTHROID 75 MCG PO (16:50)
[2024-07-19 16:58] LABS: Glucose - Point of Care 98 mg/dl (70-99)
[2024-07-19] MEDS: ELIQUIS 5 MG PO (21:42)
[2024-07-19] MEDS: DIOVAN 160 MG PO (21:43)
[2024-07-19 21:57] LABS: Glucose - Point of Care 236 mg/dl (70-99)
[2024-07-20 03:33] VITALS: BP 149/68
[2024-07-20 08:18] LABS: Glucose - Point of Care 124 mg/dl (70-99)
[2024-07-20 08:34] VITALS: BP 183/91
[2024-07-20 08:34] LABS: Hematocrit 35.2 % (37.0-47.0); Hemoglobin 11.6 g/dL (12.0-16.0); Mean Corpuscular Volume 84.8 fL (81.0-99.0); Mean Platelet Volume 9.9 fL (7.4-10.4); Platelet Count 329 10^3/uL (130-400); Red Blood Cell Count 4.15 10^6/uL (4.20-5.40); Red Cell Dist. Width 14.2 % (11.5-14.5)
[2024-07-20] MEDS: TYLENOL 1000 MG PO (08:39)
[2024-07-20] MEDS: PROTONIX 40 MG PO (08:39)
[2024-07-20] MEDS: ELIQUIS 5 MG PO (08:39)
[2024-07-20] MEDS: KEFLEX 500 MG PO (08:39)
[2024-07-20 09:18] LABS: Blood Urea Nitrogen 21 mg/dl (7-17); Calcium 9.3 mg/dl (8.4-10.2); Carbon Dioxide 20 mmol/L (22-30); Chloride 110 mmol/L (98-107); Estimated Creatinine Clearance 35 ml/min; Glucose 128 mg/dl (70-99); Potassium 3.8 mmol/L (3.5-5.1); Sodium 143 mmol/L (135-145); eGFR 55.55
--- NOTE | 2024-07-20 10:40 | W.PN.UPDATE ---
Update Note
Progress Note Update
Ms. Gan is doing and feeling great this morning with regards to her right wrist and hand. Without hesitation she extended to give me a firm handshake. Erythema has resolved. She has no pain. Exam was benign. NGTD from her right wrist
aspirate. thoughts are still gout versus pseudogout. From an orthopedic standpoint she can be discharged to follow-up outpatient. If, after discharge, by chance cultures turn positive she will return for further care- however I do not anticipate
this
--- NOTE | 2024-07-20 11:04 | W.PN.ID1 ---
Date of Service
Date of Service: July 20, 2024
Today's Communication
Continue current course of Keflex.
Assessment / Plan
Right wrist swelling/erythema
- not clear if 2* cellulitis or crystal deposition disease
- currently improved.
Leukocytosis; likely secondary to recent steroids.
A-fib
Dyslipidemia
DM
HTN
Hypothyroidism
Diverticulitis
Hx ileal cancer
Gout
Recommendations:
At present, right wrist appears clinically improved.
No current evidence of septic arthritis.
Not sure whether cellulitis was previously present.
Continue with 2 additional days of Keflex.
Chief Complaint
-: Cellulitis
Subjective / Review of Systems
Patient seen and examined. Reports no significant issues today. No significant wrist pain. Patient reports prior redness has resolved.
Vital Signs / Physical Exam
Vital Signs
Vital Signs
Temp Pulse Resp BP Pulse Ox
97.9 F 81 18 183/91 98
07/20/24 08:34 07/20/24 08:34 07/20/24 08:34 07/20/24 08:34 07/20/24 08:34
Physical Exam
Constitutional: No Acute Distress, Comfortable and Non-toxic
Eyes: Pupils Equal, Pupils Round and Sclera Anicteric
Pulmonary: Non Labored
Extremities: Edema (Mild edema noted of the right wrist. No significant tenderness.); Negative Erythema
Skin: Warm and Dry
Neurological: Awake and Alert
Objective Data
Lab Data
Lab Results
07/20/24 08:14
07/20/24 08:14
ESR 81 mm/hour (0-20) H 07/17/24 23:32
Estimated Creat Clear 35 ml/min 07/20/24 08:14
Total Bilirubin 2.6 mg/dl (0.2-1.3) H 07/17/24 23:32
AST 22 U/L (14-36) 07/17/24 23:32
ALT 12 U/L (0-35) 07/17/24 23:32
Alkaline Phosphatase 74 U/L (38-126) 07/17/24 23:32
C-Reactive Protein 89.90 mg/L (0.0-10.00) H 07/17/24 23:32
Most recent labs reviewed.
Micro Results:
07/18/24 09:35 Body Fluid Culture - Preliminary
Joint Fluid No Growth After 48 Hours
Gram Stain - Preliminary
07/18/24 01:42 Blood Culture - Preliminary
Blood/Venous No Growth in 48 hours- Final report to follow
07/18/24 01:19 Blood Culture - Preliminary
Blood/Venous No Growth in 48 hours- Final report to follow
07/18/24 09:24 MRSA Screen - Final
Nose No Methicillin Resistant Staphylococcus aureus isolated.
Imaging:
07/17/2024 X-ray right wrist: No evidence for fracture. Mild to moderate degenerative changes of the first carpal metacarpal joint. No significant erosions identified. No evidence for bony fusion. Chondrocalcinosis noted. Please see full
dictation for additional detail. Film personally viewed.
Care Review
Plan reviewed with: Physician (Hospitalist)
--- NOTE | 2024-07-20 11:28 | W.PN.HOSP.TC ---
Today's Communication/Plan
-
po keflex
Assessment / Plan
Assessment / Plan
Gen: NAD, AAOx3.
Eyes: EOMI, PERRLA, no scleral icterus.
Neck: supple.
CV: remains RRR, +S1/S2, no m/r/g.
Resp: remains CTAB, no rales, wheezes, or rhonchi.
Abd: +BS, soft, NT, ND
Skin: No rashes. Right wrist with soft tissue edema and minimal erythema. Nontender to palpation.
Neuro: CN 2-12 intact, non-focal.
Psych: Normal mood and affect.
Sepsis and an acute metabolic encephalopathy due to R wrist septic vs crystalline arthritis:
-s/p ancef and now on po keflex.
-cultures remains neg so far
-Interventional radiology attempted joint aspiration but did not get enough fluid for crystal analysis.
Other problems:
Paroxysmal Atrial Fibrillation: resume Eliquis after seen by ID
Hypothyroidism: Continue Levoxyl
DM2: a1c 6.4%, SSI/accuchecks
Essential hypertension: Continue ARB
GERD: switch to PPI
DNR/SCDs
More than 30 minutes spent in discharge including
Final examination of the patient
Summarizing hospital stay
Instructions for continuing care to all relevant caregivers
Preparation of discharge records, prescriptions, and referral forms
Total time spent (in minutes): 52
Anticipated Discharge: Today
Subjective/Interval History
-
Date of Service: July 20, 2024
states significant improvement in wrist
Objective Data
-
Labs:
Laboratory Results
07/20/24
08:14
WBC 11.0 H
Hgb 11.6 L
Hct 35.2 L
Plt Count 329
Sodium 143
Potassium 3.8
Chloride 110 H
Carbon Dioxide 20 L
BUN 21 H
Creatinine 1.0
Glucose 128 H
Calcium 9.3
Vital Signs:
Vital Signs
Temp Pulse Resp BP Pulse Ox
97.9 F 81 18 183/91 98
07/20/24 08:34 07/20/24 08:34 07/20/24 08:34 07/20/24 08:34 07/20/24 08:34
I&O
07/19/24 07/20/24 07/21/24
06:59 06:59 06:59
Intake Total 960 / 960 2310 / 2310
Balance 960 / 960 2310 / 2310
--- NOTE | 2024-07-20 11:28 | CM ---
Eva is ready for discharge today, returning to [facility]. I contacted [facility] to arrange transportation home; I spoke with Dylon who advised they will send a tractor trailer driver for 1:30 pick remover. The tractor trailer driver will call when about 10 minutes out and
will pick Eva up at the [facility] entrance. 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
Plan: Discharge to independent apartment at [facility] with no needs.
--- NOTE | 2024-07-20 11:30 | W.DCSUMMARY ---
Discharge Summary
Discharge Data
Date of Admission: 07/18/24
Date of Discharge: 07/20/24
-
Pending Results: No
Hospital Course
83-year female past medical history of atrial fibrillation, hypothyroidism with diabetes mellitus, hypertension, GERD was presenting with complaint of right wrist pain. Patient was evaluated by orthopedic infectious disease. Patient underwent
office evaluation by interventional radiology with joint aspiration was attempted but not enough fluid for crystal analysis. Patient fluid cultures was negative. Patient with significant improvement in in mobility and pain. Patient was started on
IV Ancef. Infectious disease recommending transition patient to p.o. Keflex on discharge.
Discharge Plan
-
Patient Disposition: Home (Routine Discharge)
Discharge Diagnosis/Procedures: septic vs crystalline arthritis right wrist
Condition: Good
Diet: No restrictions
Activity: As tolerated
Driving Restrictions: Not until seen by your Dr
Referrals:
Jossy Prajapati NP [Family Provider] -
Prescriptions:
New
acetaminophen [Tylenol Extra Strength] 500 mg Tablet
1,000 mg PO TID Qty: 1 0RF
Rx Instructions:
reevaluate the need to take after 3-4 days
pantoprazole 40 mg Tablet,Delayed Release (Dr/Ec)
40 mg PO DAILY Qty: 30 0RF
prednisone 10 mg tablet
10 mg PO DIRECTED Qty: 6 0RF
Rx Instructions:
Taper: 20mg daily x 2 days, 10mg daily x 2 days
cephalexin 500 mg capsule
500 mg PO TID Qty: 6 0RF
Continued
cholecalciferol (vitamin D3) 2,000 UNITS tablet
2,000 units PO DAILY
ondansetron 4 MG tablet,disintegrating
4 mg PO Q6HPRN PRN (Reason: nausea)
PreserVision AREDS-2 1 EACH capsule
1 ea PO BID
cetirizine [Zyrtec] 10 mg Tablet
5 mg PO HSPRN PRN (Reason: allergies)
cyanocobalamin (vitamin B-12) 1,000 mcg Tablet
1,000 mcg PO DAILY
levothyroxine 75 mcg Tablet
75 mcg PO QPM
triamcinolone acetonide [Nasacort] 55 mcg Aerosol,[place]
2 spray INTRANASAL DAILYPRN PRN (Reason: conjestion)
valsartan 160 mg Tablet
160 mg PO HS
Patient Comments:
07/13/24: Patient stated she is currently taking 160mg, with plans to increase to 320mg in the future.
Saline Mist 0.65 % Aerosol,[place]
2 spray INTRANASAL DAILYPRN PRN (Reason: conjestion)
meclizine 25 mg Tablet
25 mg PO Q8 PRN (Reason: NIB)
Eliquis 5 mg Tablet
5 mg PO BID
Discontinued
famotidine 40 mg Tablet
40 mg PO HS
cephalexin 500 mg Capsule
500 mg PO Q12H
Rx Instructions:
ordered 07/17/24- has not started yet
Discharge Orders:
Discharge Patient (As Directed); Ordered 07/20/24
Ordered By: Brent Camargo
Discharge Date and Time
Discharge Date/Time: 07/20/24 14:30
Print Language: SYRIAC
[2024-07-20 12:05] VITALS: BP 184/82
== END 2024-07-20 14:30 | disposition home or self-care (01) | DRG 871 ==
LOC: 4 EAST ACU 02:28
PROVIDERS: Internal Medicine; Physician Assistant; Radiology Vascular & Interventional Radiology; ADMITTING PHYSICIAN Hospitalist; ATTENDING PHYSICIAN Hospitalist; CONSULT PHYSICIAN Internal Medicine Infectious Disease; CONSULT PHYSICIAN Orthopaedic Surgery; EMERGENCY PHYSICIAN Emergency Medicine; FAMILY PHYSICIAN Family Medicine
PROC: 0R9N3ZX Drainage of Right Wrist Joint, Percutaneous Approach, Diagnostic (ICD-10-PCS; 2024-07-18)
DX: A41.9 Sepsis, unspecified organism (principal); G93.41 Metabolic encephalopathy; L03.113 Cellulitis of right upper limb; M00.9 Pyogenic arthritis, unspecified; E03.9 Hypothyroidism, unspecified; E11.9 Type 2 diabetes mellitus without complications; I10 Essential (primary) hypertension; Z66 Do not resuscitate; E78.5 Hyperlipidemia, unspecified; I45.10 Unspecified right bundle-branch block; I48.0 Paroxysmal atrial fibrillation; K21.9 Gastro-esophageal reflux disease without esophagitis; M11.231 Other chondrocalcinosis, right wrist; M25.431 Effusion, right wrist; M25.531 Pain in right wrist; M25.511 Pain in right shoulder; R06.02 Shortness of breath; Z79.01 Long term (current) use of anticoagulants; Z79.890 Hormone replacement therapy; Z87.19 Personal history of other diseases of the digestive system; Z85.068 Personal history of other malignant neoplasm of small intestine; Z87.891 Personal history of nicotine dependence; Z90.49 Acquired absence of other specified parts of digestive tract; Z90.89 Acquired absence of other organs; Z90.710 Acquired absence of both cervix and uterus; Z88.1 Allergy status to other antibiotic agents; Z88.2 Allergy status to sulfonamides; Z88.5 Allergy status to narcotic agent; Z88.8 Allergy status to other drugs, medicaments and biological substances; Z82.49 Family history of ischemic heart disease and other diseases of the circulatory system
CPT/HCPCS: 20606; 70450; 71045; 73030; 73110; 80048; 80053; 82962; 83036; 84484; 85025; 85027; 85652; 86140; 87015; 87040; 87070; 87205; 93005; 96374; 96375; 99285

== ENCOUNTER 2024-07-25 16:00 | Inpatient (IN) | payer MEDICARE, OTHER, SELFPAY ==
[2024-07-25] VITALS (34 sets, daily range): BP systolic 82–223; BP diastolic 51–198; BMI 24.6
--- NOTE | 2024-07-25 11:50 | ED.GENMED ---
History of Present Illness
<JEEVAN Perez - Last Filed: 07/25/24 15:52>
General
Chief Complaint: Heart Rate Problem
Source: patient
Exam Limitations: none
Time Seen by Provider: 07/25/24 11:43
Nursing documentation reviewed up to this point in time: agreed with
History of Present Illness
History of Present Illness:
Patient is a an 84-year-old female who presents to the ER for evaluation of elevated heart rate. She has a history of A-fib and is on Eliquis and this morning her heart rate was elevated and her watch told her she was in A-fib. She currently
denies any symptoms. no shortness of breath . She has not missed her Eliquis dose. She is scheduled for cardiac ablation on June [address] Brewer.
Patient was recently discharged 5 days ago for cellulitis of the right wrist.
pt does reports she is urinating more then normal which started today and she is constipated.
Past History
<JEEVAN Perez - Last Filed: 07/25/24 15:52>
Past History
ED Past Medical History: Arrthythmia (Atrial fib), Cancer (Ileum), HTN, NIDDM, Hypothyroidism, Psychiatric and Other (Diverticulitis)
ED Past Surgical History: Appendectomy, Bowel resection (Ileum removed for CA), Cholecystectomy, Gynecological (Hysterectomy) and Tonsilectomy
Social History
Tobacco: Former smoker
Alcohol: Occasional
Drug: None
Personal:
Living: assisted living
Employment: Retired
Family History
Family History: Other (Coronary artery disease, brother with pancreatic cancer, sister with CHF)
Review of Systems
<JEEVAN Perez - Last Filed: 07/25/24 15:52>
Review of Systems
Allergies reviewed?: Yes
All Other Systems: ROS reviewed and negative except as documented in HPI and ROS
Constitutional: Denies fever, fatigue or chills
Respiratory: Reports no symptoms; Denies trouble breathing
Cardiac: Reports palpitations; Denies chest pain or syncope
ABD/GI: Reports constipated and other (moved bowels several days ago )
: Reports no symptoms
Musculoskeletal: Reports no symptoms
Skin: Reports no symptoms
Neurological: Reports no symptoms
Psychiatric: Reports no symptoms
Phy Exam
<JEEVAN Perez - Last Filed: 07/25/24 15:52>
General Physical Exam
General Presentation: no apparent distress
General age: appears stated age
General Skin: warm and dry
General Habitus: elderly
General Mental: alert
Cardiovascular Exam
Cardiovascular Exam: irregularly irregular
Pulmonary Exam
Pulmonary Exam: lungs clear and no respiratory distress
Neurological Exam
Neurological Exam: alert and oriented x3
Musculoskeletal Exam
Musculoskeletal Exam: full ROM
Course
<JEEVAN Perez - Last Filed: 07/25/24 15:52>
Orders/Labs/Results
Orders:
Orders
07/25/24 11:51
Electrocardiogram (*1) Urgent
Reason for Study: Chest Pain
Cardiac Monitoring- Treatment ONCE
EKG- Treatment ONCE
IV Insert/Care/Rem.- Treatment PRN
O2 Therapy [RESP] Urgent
Titrate/Wean O2 to maintain O2 sat greater than (%): 90
Special Instructions: Maintain sats >/=90%
Pulse Ox/spot Check [RESP] Urgent
Quantity: 1
Special Instructions: ON ROOM AIR
07/25/24 12:02
0.9% Sodium Chloride 1000 ml [Nss] 1,000 ml IV BOLUS
07/25/24 12:06
Complete Blood Count/With Diff Urgent
Comprehensive Metabolic Panel Urgent
TSH Reflex To Free T4 Urgent
Comment: ADD ON
Troponin I Urgent
07/25/24 12:09
Diltiazem 125 mg/125 ml Nss [Cardizem] 125 mg in 125 ml .ROUTE .STK-MED
Diltiazem HCl [Cardizem] 25 mg .ROUTE .STK-MED ONE
07/25/24 12:20
Diltiazem 125 mg/125 ml Nss [Cardizem] 125 mg in 125 ml IV NOW
Initial dose in mg/hr, then titrate:: 5
Titrate to keep:: Heart rate 80-100 bpm
Titrate by mg/hr:: 5 mg/hr
Frequency of titrations (minutes):: 15
Maximum dose in mg/hr:: 15
Diltiazem HCl [Cardizem] 10 mg IV NOW STA
07/25/24 14:26
Obstruct Series W/PA Chest [CR Obstruct Series W/pa Chest] Urgent
Comment:
Reason For Exam: constipation
07/25/24 14:31
Add On- LAB Urgent
Tests Added?: tsh w/ reflexive t4
07/25/24 14:32
Diltiazem [Cardizem] 30 mg PO NOW STA
07/25/24 14:38
UA Reflex to Culture [Urinalysis Reflex To Culture] Urgent
Date Specimen was Collected: 07/25/24
Time Specimen was Collected: 14:29
07/25/24 15:21
CARDIOLOGY CONSULT Routine
Consulting Provider: Stephen Mcconnell
Was physician already notified: Yes
Abnormal Lab Results
07/25/24
12:06
WBC 13.2 H 10^3/uL
(4.8-10.8)
MCHC 32.9 L g/dL
(33.0-37.0)
RDW 14.8 H %
(11.5-14.5)
Plt Count 412 H D 10^3/uL
(130-400)
Abs Immat Gran (auto) 0.1 H 10^3/uL
(0-0.05)
Absolute Neuts (auto) 7.7 H 10^3/uL
(1.4-6.5)
Absolute Lymphs (auto) 4.0 H 10^3/uL
(1.2-3.4)
Absolute Monos (auto) 1.2 H 10^3/uL
(0.1-0.6)
Chloride 108 H mmol/L
(98-107)
Carbon Dioxide 21 L mmol/L
(22-30)
BUN 27 H mg/dl
(7-17)
Creatinine 1.1 H mg/dL
(0.6-1.0)
Glucose 145 H mg/dl
(70-99)
07/25/24 12:06
07/25/24 12:06
Vital Signs
Initial and Last Documented VS:
Initial Vital Signs
Temp Pulse Resp Pulse Ox
98.1 F 141 22 100
07/25/24 11:43 07/25/24 11:43 07/25/24 11:43 07/25/24 11:43
Last Documented Vital Signs
Temp Pulse Resp BP Pulse Ox
98.1 F 131 17 165/97 100
07/25/24 11:43 07/25/24 15:00 07/25/24 15:00 07/25/24 15:00 07/25/24 14:21
Motors And Controls Tester consulted with Physician
Motors And Controls Tester consulted with physician?: Yes
Name of Physician Consulted: sully
<Camilo Burton, DO - Last Filed: 07/25/24 13:01>
Orders/Labs/Results
Orders:
Orders
07/25/24 11:51
Electrocardiogram (*1) Urgent
Reason for Study: Chest Pain
Cardiac Monitoring- Treatment ONCE
EKG- Treatment ONCE
IV Insert/Care/Rem.- Treatment PRN
O2 Therapy [RESP] Urgent
Titrate/Wean O2 to maintain O2 sat greater than (%): 90
Special Instructions: Maintain sats >/=90%
Pulse Ox/spot Check [RESP] Urgent
Quantity: 1
Special Instructions: ON ROOM AIR
07/25/24 12:02
0.9% Sodium Chloride 1000 ml [Nss] 1,000 ml IV BOLUS
07/25/24 12:06
Complete Blood Count/With Diff Urgent
Comprehensive Metabolic Panel Urgent
TSH Reflex To Free T4 Urgent
Comment: ADD ON
Troponin I Urgent
07/25/24 12:09
Diltiazem 125 mg/125 ml Nss [Cardizem] 125 mg in 125 ml .ROUTE .STK-MED
Diltiazem HCl [Cardizem] 25 mg .ROUTE .STK-MED ONE
07/25/24 12:20
Diltiazem 125 mg/125 ml Nss [Cardizem] 125 mg in 125 ml IV NOW
Initial dose in mg/hr, then titrate:: 5
Titrate to keep:: Heart rate 80-100 bpm
Titrate by mg/hr:: 5 mg/hr
Frequency of titrations (minutes):: 15
Maximum dose in mg/hr:: 15
Diltiazem HCl [Cardizem] 10 mg IV NOW STA
07/25/24 14:26
Obstruct Series W/PA Chest [CR Obstruct Series W/pa Chest] Urgent
Comment:
Reason For Exam: constipation
07/25/24 14:31
Add On- LAB Urgent
Tests Added?: tsh w/ reflexive t4
07/25/24 14:32
Diltiazem [Cardizem] 30 mg PO NOW STA
07/25/24 14:38
UA Reflex to Culture [Urinalysis Reflex To Culture] Urgent
Date Specimen was Collected: 07/25/24
Time Specimen was Collected: 14:29
07/25/24 15:21
CARDIOLOGY CONSULT Routine
Consulting Provider: Stephen Mcconnell
Was physician already notified: Yes
Abnormal Lab Results
07/25/24
12:06
WBC 13.2 H 10^3/uL
(4.8-10.8)
MCHC 32.9 L g/dL
(33.0-37.0)
RDW 14.8 H %
(11.5-14.5)
Plt Count 412 H D 10^3/uL
(130-400)
Abs Immat Gran (auto) 0.1 H 10^3/uL
(0-0.05)
Absolute Neuts (auto) 7.7 H 10^3/uL
(1.4-6.5)
Absolute Lymphs (auto) 4.0 H 10^3/uL
(1.2-3.4)
Absolute Monos (auto) 1.2 H 10^3/uL
(0.1-0.6)
Chloride 108 H mmol/L
(98-107)
Carbon Dioxide 21 L mmol/L
(22-30)
BUN 27 H mg/dl
(7-17)
Creatinine 1.1 H mg/dL
(0.6-1.0)
Glucose 145 H mg/dl
(70-99)
07/25/24 12:06
07/25/24 12:06
Vital Signs
Initial and Last Documented VS:
Initial Vital Signs
Temp Pulse Resp Pulse Ox
98.1 F 141 22 100
07/25/24 11:43 07/25/24 11:43 07/25/24 11:43 07/25/24 11:43
Last Documented Vital Signs
Temp Pulse Resp BP Pulse Ox
98.1 F 131 17 165/97 100
07/25/24 11:43 07/25/24 15:00 07/25/24 15:00 07/25/24 15:00 07/25/24 14:21
<JEEVAN Perez - Last Filed: 07/25/24 15:52>
MDM/Problems Addressed
Differential Diagnosis Includes:
not limtied to: Rapid A-fib
MDM/Problems Addressed:
Patient is a 84-year-old female with past medical history of A-fib on anticoagulation not on rate control medication presents to the ER in rapid A-fib. She felt symptomatic this morning. She is due for ablation in August. She denies any recent
fever or chills. She does complain of increased urination but urine negative. She presents in rapid A-fib. ED physician evaluated patient patient was given IV bolus of Cardizem plus drip still tachycardic and given oral dose of Cardizem. She was
hydrated as she is slightly dehydrated here on labs. as d/c w/ DR Burton will admit.
Chronic conditions affecting care:
afib on anticoagulation
<JEEVAN Perez - Last Filed: 07/25/24 15:52>
*Radiology
Radiology exam reviewed: preliminary read by ED provider (+ constipation on xray no obs )
*Pulse Oximetry
Patient hypoxic: no
*EKG
Interpreted by ED Provider?: Yes
Heart Rate: 156
Rate: tachycardiac
Rhythm: a-fib
Ischemia: non-specific ST changes
*Critical Care Note
Total Time (30-74mins, 75-104mins- exclusive of procedures): Not Applicable
ED Attending Note
<JEEVAN Perez - Last Filed: 07/25/24 15:52>
-
Portions of this chart may have been created with voice recognition software.� Occasional wrong word or��sound alike� substitutions may have occurred due to the inherent limitations of voice recognition software.
<Camilo Burton, DO - Last Filed: 07/25/24 13:01>
ED Attending Note
Patient seen and examined by attending physician: Yes
I performed the substantive portion of visit, reviewed & personally made and approve the management plan that is documented in note by myself or FRANCHESKA.: Yes
ED Attending Note:
Seen with WEAPONS DESIGNER examined independently, PAF, recently admitted with cellulitis and pseudogout, here clears well tachycardic despite Cardizem
Continue hydration Cardizem has not required cardioversion previously
Discharge Plan
Departure
Patient Disposition: Admit
Date of Disposition: 07/25/24
Time of Disposition: 15:03
Admit to: Telemetry
Admit to doctor: hospitalist
Presentation/result/management discussed w/ accepting MD/DO: Hospitalist
Patient with high blood pressure during this ER visit?: Yes
Condition: Fair
Covid-19: Not Applicable
Discharge Problem:
Atrial fibrillation, rapid
Prescriptions:
No Action
cholecalciferol (vitamin D3) 2,000 UNITS tablet
2,000 units PO DAILY
ondansetron 4 MG tablet,disintegrating
4 mg PO Q6HPRN PRN (Reason: nausea)
PreserVision AREDS-2 1 EACH capsule
1 ea PO BID
cetirizine [Zyrtec] 10 mg Tablet
5 mg PO HSPRN PRN (Reason: allergies)
cyanocobalamin (vitamin B-12) 1,000 mcg Tablet
1,000 mcg PO DAILY
levothyroxine 75 mcg Tablet
75 mcg PO QPM
triamcinolone acetonide [Nasacort] 55 mcg Aerosol,[place]
2 spray INTRANASAL DAILYPRN PRN (Reason: conjestion)
valsartan 160 mg Tablet
160 mg PO HS
Patient Comments:
07/13/24: Patient stated she is currently taking 160mg, with plans to increase to 320mg in the future.
Saline Mist 0.65 % Aerosol,[place]
2 spray INTRANASAL DAILYPRN PRN (Reason: conjestion)
meclizine 25 mg Tablet
25 mg PO Q8 PRN (Reason: NIB)
Eliquis 5 mg Tablet
5 mg PO BID
acetaminophen [Tylenol Extra Strength] 500 mg Tablet
1,000 mg PO TID Qty: 1 0RF
Rx Instructions:
reevaluate the need to take after 3-4 days
pantoprazole 40 mg Tablet,Delayed Release (Dr/Ec)
40 mg PO DAILY Qty: 30 0RF
Referrals:
UNKNOWN - PT DOES,NOT KNOW [Unknown Provider] -
Interventions
Interventions:
*Risk Screen - Suicide Last Done: 07/25/24 11:43
*General Assessment Last Done: 07/25/24 11:43
ED- Fall Risk Assessment Last Done: 07/25/24 11:52
ED- Cardiac Assessment Last Done: 07/25/24 11:52
ED- Pulmonary Assessment Last Done: 07/25/24 11:52
Discharge Date and Time
Print Language: M[place]ENEGR[place]
[2024-07-25 12:15] LABS: % Basophils 0.4 % (0-2); % Eosinophils 1.5 % (0-6); % Immature Granulocytes 0.5 % (0-0.5); % Lymphocytes 29.9 % (20.5-51.1); % Monocytes 9.3 % (1.7-9.3); % Neutrophils 58.4 % (42.2-75.2); Absolute Basophils 0.1 10^3/uL (0-0.2); Absolute Eosinophils 0.2 10^3/uL (0-0.7); Absolute Immature Granulocytes 0.1 10^3/uL (0-0.05); Absolute Monocytes 1.2 10^3/uL (0.1-0.6); Absolute Neutrophils 7.7 10^3/uL (1.4-6.5); Hematocrit 39.2 % (37.0-47.0); Hemoglobin 12.9 g/dL (12.0-16.0); Mean Corp Hgb Conc. 32.9 g/dL (33.0-37.0); Mean Corpuscular Hgb 27.7 pg (27.0-31.0); Mean Corpuscular Volume 84.1 fL (81.0-99.0); Mean Platelet Volume 9.6 fL (7.4-10.4); Nucleated Red Blood Cells % 0 %; Platelet Count 412 10^3/uL (130-400); Red Blood Cell Count 4.66 10^6/uL (4.20-5.40); Red Cell Dist. Width 14.8 % (11.5-14.5); White Blood Cell Count 13.2 10^3/uL (4.8-10.8)
[2024-07-25] MEDS: CARDIZEM 10 MG IV (12:25)
[2024-07-25] MEDS: CARDIZEM 125 IV ×2 (12:26→18:50)
[2024-07-25 12:28] LABS: ALT (SGPT) 13 U/L (0-35); AST (SGOT) 20 U/L (14-36); Albumin 4.1 g/dl (3.5-5.0); Alkaline Phosphatase 74 U/L (38-126); Blood Urea Nitrogen 27 mg/dl (7-17); Calcium 9.7 mg/dl (8.4-10.2); Carbon Dioxide 21 mmol/L (22-30); Chloride 108 mmol/L (98-107); Glucose 145 mg/dl (70-99); Sodium 144 mmol/L (135-145); Total Bilirubin 0.6 mg/dl (0.2-1.3); Total Protein 7.4 g/dl (6.3-8.2); eGFR 49.24
[2024-07-25] MEDS: NSS 1000 IV (12:34)
[2024-07-25 12:38] LABS: Troponin I < 0.012 ng/ml
[2024-07-25] MEDS: CARDIZEM 30 MG PO (14:45)
[2024-07-25 14:50] LABS: Urine Albumin Negative (Neg - Trace); Urine Bilirubin Negative (Negative); Urine Character Clear (Clear); Urine Color Yellow; Urine Glucose Negative (Negative); Urine Ketone Negative (Negative); Urine Leukocyte Negative (Negative); Urine Nitrite Negative (Negative); Urine Occult Blood Negative (Negative); Urine Specific Gravity 1.005 (<1.030); Urine Urobilinogen Negative (Neg - 1+)
--- NOTE | 2024-07-25 15:17 | HPS.HSE ---
Family Physician
-
Family Physician: Jossy Prajapati
Chief Complaint
-
Elevated Heart Rate
History of Present Illness
Patient is an 84 y/o female past medical history of A-fib, HTN, DM, Hypothyroidism, and recent hospitalization for right wrist septic vs crystalline arthritis who presents with elevated heart rate. Patient reports today her Apple Watch notified her
of an elevated heart rate. She denies any chest pains or palpitations. She was started on Cardizem but rates remain in the 130s. She is scheduled for an ablation on August 20.
Medical History
Past Medical History
Past Medical History: Reports Other
Additional Past Medical History:
Paroxysmal Atrial Fibrillation
Essential Hypertension
Diabetes Mellitus, Type II
CKD Stage III
Hypothyroidism
DDD
Pseudogout
Colon Cancer
Past Surgical History: Reports Other
Additional Past Surgical History:
Appendectomy
T&A
Cholecystectomy
Right Hemicolectomy
Sigmoidectomy
Cataracts
LEI / BSO
Social History
Tobacco: Former Smoker
Alcohol: None
Drug: None
Family History
Family History: Not pertinent
Allergies / Home Medications
Allergies reflects when Allergies were last updated in [facility].
Home Medications with original date entered in [facility]
Allergy/Medication List:
Allergies
Allergy/AdvReac Type Severity Reaction Status Date / Time
allopurinol [Allopurinol] Allergy Rash,itchy Verified 07/25/24 11:42
azithromycin Allergy difficulty Verified 07/25/24 11:42
swelling;thick
tongue
bee pollen Allergy Anaphylaxis Verified 07/25/24 11:42
bee venom protein (honey bee) Allergy Anaphylaxis Verified 07/25/24 11:42
codeine Allergy hallucinati Verified 07/25/24 11:42
on
diphenhydramine HCl Allergy irregular Verified 07/25/24 11:42
[From Benadryl] heart beat
latex [Latex] Allergy Rash,itchin Verified 07/25/24 11:42
g
lecithin, soy Allergy Hives Verified 07/25/24 11:42
metronidazole [From Flagyl] Allergy N&V,irregular Verified 07/25/24 11:42
heart beat
Penicillins Allergy Anaphylaxis Verified 07/25/24 11:42
Shellfish *RETIRED-07/01/12 Allergy Hives Verified 07/25/24 11:42
[Shellfish]
soy Allergy Hives Verified 07/25/24 11:42
Xjqheob-NKA-PuD Reductase Allergy Rash Verified 07/25/24 11:42
Inhibitor
[Rizkcrm-Bor-Mgd Reductase
Inhibitor]
Sulfa (Sulfonamide Allergy Rash Verified 07/25/24 11:42
Antibiotics)
sulfasalazine Allergy Rash Verified 07/25/24 11:42
tetracycline [Tetracycline] Allergy Pharmacy Verified 07/25/24 11:42
to Review
tuberculin, purified protein Allergy arm Verified 07/25/24 11:42
deriva swelling
vancomycin Allergy thick Verified 07/25/24 11:42
tongue,difficulty
swallowing
artificial coloring Allergy Mild Rash Uncoded 07/17/24 22:18
opiods Allergy manic Uncoded 07/17/24 22:18
state,loss
of
inhibitions
Home Medications
cholecalciferol (vitamin D3) 50 mcg (2,000 unit) tablet 2,000 units PO DAILY Supplement 12/19/21
ondansetron 4 mg disintegrating tablet 4 mg PO Q6HPRN PRN nausea 01/22/22
vit C 250 mg-vit E 90 mg-zinc 40 mg-copper 1 [id number] capsule (PreserVision AREDS-2) 1 ea PO BID Supplement 01/22/22
cetirizine 10 mg tablet (Zyrtec) 5 mg PO HSPRN PRN allergies 07/13/24
cyanocobalamin (vitamin B-12) 1,000 mcg tablet 1,000 mcg PO DAILY Supplement 07/13/24
levothyroxine 75 mcg tablet 75 mcg PO QPM Thyroid 07/13/24
sodium chloride 0.65 % nasal spray aerosol (Saline Mist) 2 spray intranasal DAILYPRN PRN conjestion 07/13/24
triamcinolone acetonide 55 mcg nasal spray aerosol (Nasacort) 2 spray intranasal DAILYPRN PRN conjestion 07/13/24
valsartan 160 mg tablet 160 mg PO HS Blood Pressure 07/13/24
apixaban 5 mg tablet (Eliquis) 5 mg PO BID Blood Clot Prevention/Tx 07/18/24
meclizine 25 mg tablet 25 mg PO Q8 PRN NIB 07/18/24
acetaminophen 500 mg tablet (Tylenol Extra Strength) 1,000 mg (2 x 500 mg) PO TID #1 tab 07/19/24
pantoprazole 40 mg tablet,delayed release 40 mg PO DAILY #30 tabs 07/19/24
Review of Systems
-
A 12 point ROS was completed and negative except as noted: Yes
Constitutional: Denies Fever or Chills
Respiratory: Denies Cough or Trouble Breathing
Cardiac: Denies Chest Pain or Palpitations
Physical Exam
Vital Signs
Vital Signs
Temp Pulse Resp BP Pulse Ox
98.1 F 131 17 165/97 100
07/25/24 11:43 07/25/24 15:00 07/25/24 15:00 07/25/24 15:00 07/25/24 14:21
Physical Exam
General: Comfortable and Conversant
HEENT: Anicteric and Moist mucous membranes
Respiratory: Clear and Non Labored Respirations
Cardiac: S1/S2, Irregular Rhythm and Tachycardia
GI: Soft and Non Tender
Rectal: Deferred by Provider
Genito-urinary: Clear Urine
Musculoskeletal: No Clubbing, No Cyanosis and No Edema
Skin: Warm and Dry
Neuro: Awake, Alert, Oriented and Nonfocal/grossly intact
Psych: Calm
Laboratory Results
-
07/25/24 12:06
07/25/24 12:06
Laboratory Results
Total Bilirubin 0.6 mg/dl (0.2-1.3) 07/25/24 12:06
AST 20 U/L (14-36) 07/25/24 12:06
ALT 13 U/L (0-35) 07/25/24 12:06
Alkaline Phosphatase 74 U/L (38-126) 07/25/24 12:06
Troponin I < 0.012 ng/ml 07/25/24 12:06
Data Reviewed
-
Medical Tests (Nuc Med, Echo, EKG etc): Report Reviewed by me
Lab Data: Labs Reviewed by me
Impression/Plan
-
Atrial Fibrillation with Rapid Ventricular Response
-Consult Cardiology
-Continue Cardizem drip
-Continue Eliquis
Leukocytosis, likely related to recent steroids
-Continue to monitor
Essential Hypertension
-Continue valsartan with hold parameters
Diabetes Mellitus, Type II
-HgbA1c 6.4 on 07/18/2024
-Patient does not take any oral diabetic medications
-Continue diabetic diet
-Monitor sugars and continue coverage insulin
CKD Stage III
-Renal function at baseline
Hypothyroidism
-TSH within normal range
-Continue levothyroxine
DVT proph: Eliquis
Code Status: DNR
--- NOTE | 2024-07-25 15:52 | W.PN.UPDATE ---
Update Note
Progress Note Update
This note serves as an addendum to the H&P by automation machine operator FRANCHESKA Shazia BOLANOS
HPI
84F DC'd 5 days ago with Dx Rt wrist cellulitis and also suspect acute gout flare HX chr eliquis, Prx AF pw recurrence AF alerted by Buccaneer, but asymtomatic, has appointment with Dr Lacy for ablation of AF on August 20 a/w fast AF
with VR 130s. labile HTN from 223/198 to 130/96. Hemodynamically stable
PHX include Hypothyroid and HTN.
ROS:
Constipation
EKG :
ATRIAL FIBRILLATION WITH RAPID VENTRICULAR RESPONSE
RIGHT BUNDLE BRANCH BLOCK
ABNORMAL ECG
WHEN COMPARED WITH ECG OF 17-JUL-2024 23:35,
ATRIAL FIBRILLATION HAS REPLACED SINUS RHYTHM
VENT. RATE HAS INCREASED BY 79 BPM
ST NOW DEPRESSED IN ANTERIOR LEADS
T WAVE INVERSION NOW EVIDENT IN ANTERIOR LEADS
Reviewed VS:
Vital Signs
Temp Pulse Resp BP Pulse Ox
98.1 F 131 17 165/97 100
07/25/24 11:43 07/25/24 15:00 07/25/24 15:00 07/25/24 15:00 07/25/24 14:21
PE
Gen: NAD, AAOx3.
Eyes: EOMI, PERRLA, no scleral icterus.
Neck: supple.
CV: remains fast and +S1/S2, no m/r/g.
Resp: remains CTAB, no rales, wheezes, or rhonchi.
Abd: +BS, soft, NT, ND
Skin: No rashes. Right wrist with soft tissue edema and minimal erythema. Nontender to palpation.
Neuro: CN 2-12 intact, non-focal.
Psych: Normal mood and affect.
Data
WCC 13.2
Cl 108 CO2 21 BUN 27 Cr 1.1
NEG TPNI
Pending obstruction series
Last hospitalist admission:
Date of Admission: 07/18/24 - Date of Discharge: 07/20/24
Discharge Diagnosis/Procedures: septic vs crystalline arthritis right wrist
ASSESSMENT & PLAN
Fast AF
Associated with near syncope
Labile HTN control
- c/w Diltiazem gtt
- c/w Eliquis
- fall precautions
- DCA card consult
Constipation
- f/u obstruction series
Chronic conditions:
Hypothyroidism: Continue Levoxyl
DM2: a1c 6.4%, SSI/AccuCheck
Essential hypertension: Continue ARB
GERD: switch to PPI
DVT Px: on Eliquis
Code: DNR per patient
IVU
[2024-07-25 15:55] LABS: TSH Reflex To Free T4 3.63 uIU/ml (0.47-4.68)
[2024-07-25] MEDS: SYNTHROID 75 MCG PO (20:33)
[2024-07-25] MEDS: ELIQUIS 5 MG PO (20:33)
--- NOTE | 2024-07-25 20:56 | PTCARENOTE ---
Addendum entered by Piper Monroe RN 07/25/24 20:59:
Cardizem drip started again due to uncontrolled A-Fib. Running into IV in left forearm @ 5 mL/hr.
Original Note:
Received patient at change of shift. Patient just brought up from ED. Awake, alert, and oriented. No current Cardizem drip due to vagal episode in ED. BP 119/100, Uncontrolled A-Fib 134-129, 100% on room air. Discussed with patient about not getting
out of bed due to vagal episode in ED. Patient verbalized understanding. Call cooper within reach.
[2024-07-25] MEDS: ZOFRAN 4 MG IV (21:08)
[2024-07-25] MEDS: DIOVAN 160 MG PO (22:46)
[2024-07-25 22:50] LABS: Glucose - Point of Care 161 mg/dl (70-99)
--- NOTE | 2024-07-25 23:58 | PTCARENOTE ---
Received patient at change of shift. Patient just brought up from ED. Awake, alert, and oriented. No current Cardizem drip due to vagal episode in ED. BP 119/100, Uncontrolled A-Fib 134-129, 100% on room air. Discussed with patient about not getting
out of bed due to vagal episode in ED. Patient verbalized understanding. Call cooper within reach.
Cardizem drip restarted when patient arrived at IVU floor due to uncontrolled A-Fib continuing.
--- NOTE | 2024-07-25 23:59 | PTCARENOTE ---
Kevin fritzip stopped @2099-- Patient converted to NSR at 2030. HR dropping to low 50s, SBP 85. EKG completed. Patient currently maintaining NSR, rate high 40s-mid 50s, BP currently 110/58.
[2024-07-26] VITALS: BP 110/58
--- NOTE | 2024-07-26 01:26 | PTCARENOTE ---
Pt. had 2 small soft BM's earlier this shift while in rapid A-Fib. Of note, HR did decrease into 70's when bearing down and appeared to be NSR, but rapid A-fib resumed almost immediately. Pt. completely converted to NSR at 2029, HR then decreased
to the low 50's and SBP 85. Cardizem placed on hold at 2099; EKG completed. Pt. remains SB, frequently dips into the 40's. BP 110/58. Pt. sleeping.
[2024-07-26 02:00] VITALS: BP 119/64
[2024-07-26 03:36] VITALS: BP 130/73
[2024-07-26 04:00] VITALS: BMI 24.7
[2024-07-26 04:00] LABS: Hematocrit 35.2 % (37.0-47.0); Hemoglobin 11.9 g/dL (12.0-16.0); Mean Corp Hgb Conc. 33.8 g/dL (33.0-37.0); Mean Corpuscular Hgb 28.8 pg (27.0-31.0); Mean Corpuscular Volume 85.2 fL (81.0-99.0); Mean Platelet Volume 9.7 fL (7.4-10.4); Platelet Count 348 10^3/uL (130-400); Red Blood Cell Count 4.13 10^6/uL (4.20-5.40); Red Cell Dist. Width 14.8 % (11.5-14.5); White Blood Cell Count 12.8 10^3/uL (4.8-10.8)
[2024-07-26 04:16] LABS: Blood Urea Nitrogen 26 mg/dl (7-17); Carbon Dioxide 21 mmol/L (22-30); Chloride 107 mmol/L (98-107); Estimated Creatinine Clearance 32 ml/min; Glucose 146 mg/dl (70-99); Magnesium 1.8 mg/dl (1.6-2.3); Potassium 4.1 mmol/L (3.5-5.1); Sodium 140 mmol/L (135-145); eGFR 49.24
[2024-07-26 08:03] LABS: Glucose - Point of Care 123 mg/dl (70-99)
--- NOTE | 2024-07-26 08:32 | W.PN.HOSP.TC ---
Today's Communication/Plan
-
Discharge planning today
Assessment / Plan
Assessment / Plan
Physical exam:
General: Well Developed, Well Nourished and No Apparent Distress
HEENT: Normocephalic, Atraumatic and Moist Mucous Membranes
Respiratory: Clear to Auscultation; Negative Wheezes, Rales or Rhonchi
Cardiac: Regular Rhythm and S1/S2
GI: Soft, Nontender and Nondistended
Musculoskeletal: No Clubbing, No Cyanosis and No Edema
Neuro: Awake, Alert and Oriented
Psych: Calm
A/P:
Atrial Fibrillation with Rapid Ventricular Response--> back to normal sinus rhythm today
-Consulted Cardiology
-Cardizem drip switched to oral Cardizem today.
-Continue Eliquis
-Discussed with cardiology who cleared for discharge today.
Leukocytosis, likely related to recent steroids
-Continue to monitor
Essential Hypertension
-Continue valsartan with hold parameters
Diabetes Mellitus, Type II
-HgbA1c 6.4 on 07/18/2024
-Patient does not take any oral diabetic medications
-Continue diabetic diet
-Monitor sugars and continue coverage insulin
CKD Stage III
-Renal function at baseline
Hypothyroidism
-TSH within normal range
-Continue levothyroxine
DVT proph: Eliquis
Code Status: DNR
Anticipated Discharge: Today
Subjective/Interval History
-
Date of Service: July 26, 2024
Patient back in normal sinus rhythm. No chest pain or shortness of breath
Objective Data
-
Labs:
Laboratory Results
07/26/24
03:44
WBC 12.8 H
Hgb 11.9 L
Hct 35.2 L
Plt Count 348
Sodium 140
Potassium 4.1
Chloride 107
Carbon Dioxide 21 L
BUN 26 H
Creatinine 1.1 H
Glucose 146 H
Calcium 9.0
Vital Signs:
Vital Signs
Temp Pulse Resp BP Pulse Ox
98.2 F 58 20 130/73 98
07/26/24 07:59 07/26/24 04:00 07/26/24 07:59 07/26/24 03:36 07/26/24 03:36
I&O
07/25/24 07/26/24 07/27/24
06:59 06:59 06:59
Intake Total 480 / 480
Balance 480 / 480
--- NOTE | 2024-07-26 08:59 | CON.CAR ---
Consultation
Consultation Request
Date/Time Consultation Requested: July 26, 2024
Date/Time Consultation Performed: July 26, 2024
Requesting Provider: Hospitalist
Performing Provider: Enedina
Reason for Consultation: Atrial fibrillation
Medical History
-
Chief Complaint: Atrial fibrillation
History of Present Illness:
83-year-old female with a history of hypertension hypothyroidism type 2 diabetes and stage IIIb chronic kidney disease who presents with atrial fibrillation. She has symptomatic atrial fibrillation which is paroxysmal and intolerant to amiodarone
and beta-blockers which she gets lightheadedness falling and orthostasis. When she comes to the ER in atrial fibrillation she is relatively asymptomatic although she noticed it on her Apple Watch and it was persisting over 24 hours so she came to
the emergency department. She felt a little worse with this more prolonged episode than normal and sometimes she is relatively little symptoms. This time she just felt unwell. She was given IV Cardizem which converted her to sinus rhythm and she
has had conversions on Cardizem in the past. We will initiate p.o. Cardizem this morning.
Past Medical History
Past Medical History: Arrhythmias
Past Surgical History: None
Social History
Tobacco: Non-Smoker
Alcohol: None
Drug: None
Personal: Other
Living: Other
Employment: Not Employed
Family History
Family History: Reviewed & Not Pertinent
Allergies / Home Medications
Allergy/AdvReac Type Severity Reaction Status Date / Time
allopurinol [Allopurinol] Allergy Rash,itchy Verified 07/25/24 11:42
azithromycin Allergy difficulty Verified 07/25/24 11:42
swelling;thick
tongue
bee pollen Allergy Anaphylaxis Verified 07/25/24 11:42
bee venom protein (honey bee) Allergy Anaphylaxis Verified 07/25/24 11:42
codeine Allergy hallucinati Verified 07/25/24 11:42
on
diphenhydramine HCl Allergy irregular Verified 07/25/24 11:42
[From Benadryl] heart beat
latex [Latex] Allergy Rash,itchin Verified 07/25/24 11:42
g
lecithin, soy Allergy Hives Verified 07/25/24 11:42
metronidazole [From Flagyl] Allergy N&V,irregular Verified 07/25/24 11:42
heart beat
Penicillins Allergy Anaphylaxis Verified 07/25/24 11:42
Shellfish *RETIRED-07/01/12 Allergy Hives Verified 07/25/24 11:42
[Shellfish]
soy Allergy Hives Verified 07/25/24 11:42
Zztfgsq-ZMW-SnJ Reductase Allergy Rash Verified 07/25/24 11:42
Inhibitor
[Xilzzrd-Hpf-Sjh Reductase
Inhibitor]
Sulfa (Sulfonamide Allergy Rash Verified 07/25/24 11:42
Antibiotics)
sulfasalazine Allergy Rash Verified 07/25/24 11:42
tetracycline [Tetracycline] Allergy Pharmacy Verified 07/25/24 11:42
to Review
tuberculin, purified protein Allergy arm Verified 07/25/24 11:42
deriva swelling
vancomycin Allergy thick Verified 07/25/24 11:42
tongue,difficulty
swallowing
artificial coloring Allergy Mild Rash Uncoded 07/17/24 22:18
opiods Allergy manic Uncoded 07/17/24 22:18
state,loss
of
inhibitions
�Medication �Instructions �Recorded �Confirmed �Type
cholecalciferol (vitamin D3) 50 2,000 units PO DAILY Supplement 12/19/21 07/25/24 History
mcg (2,000 unit) tablet
ondansetron 4 mg disintegrating 4 mg PO Q6HPRN PRN nausea 01/22/22 07/25/24 History
tablet
vit C 250 mg-vit E 90 mg-zinc 40 1 ea PO BID Supplement 01/22/22 07/25/24 History
mg-copper 1 [id number]
capsule (PreserVision AREDS-2)
cetirizine 10 mg tablet (Zyrtec) 5 mg PO HSPRN PRN allergies 07/13/24 07/25/24 History
cyanocobalamin (vitamin B-12) 1,000 mcg PO DAILY Supplement 07/13/24 07/25/24 History
1,000 mcg tablet
levothyroxine 75 mcg tablet 75 mcg PO QPM Thyroid 07/13/24 07/25/24 History
sodium chloride 0.65 % nasal spray 2 spray intranasal DAILYPRN PRN 07/13/24 07/25/24 History
aerosol (Saline Mist) conjestion
triamcinolone acetonide 55 mcg 2 spray intranasal DAILYPRN PRN 07/13/24 07/25/24 History
nasal spray aerosol (Nasacort) conjestion
valsartan 160 mg tablet 160 mg PO HS Blood Pressure 07/13/24 07/25/24 History
apixaban 5 mg tablet (Eliquis) 5 mg PO BID Blood Clot 07/18/24 07/25/24 History
Prevention/Tx
meclizine 25 mg tablet 25 mg PO Q8 PRN NIB 07/18/24 07/25/24 History
acetaminophen 500 mg tablet 1,000 mg (2 x 500 mg) PO TID #1 tab 07/19/24 07/25/24 Rx
(Tylenol Extra Strength)
pantoprazole 40 mg tablet,delayed 40 mg PO DAILY #30 tabs 07/19/24 07/25/24 Rx
release
Review of Systems
-
All other systems: Negative unless noted
Cardiac: Palpitations
Physical Exam
Vital Signs
Temp Pulse Resp BP Pulse Ox
98.2 F 58 20 130/73 98
07/26/24 07:59 07/26/24 04:00 07/26/24 07:59 07/26/24 03:36 07/26/24 03:36
Lab Results
07/26/24 03:44
07/26/24 03:44
Troponin I < 0.012 ng/ml 07/25/24 12:06
Physical Exam
General: Well Developed and Well Nourished
HEENT: Normocephalic and Anicteric
Respiratory: Clear
Cardiac: Regular Rhythm
Breast: Deferred by me
GI: Soft, Non Tender and Non Distended
Rectal: Deferred by Provider
Genito-urinary: Other
Musculoskeletal: No Clubbing and No Cyanosis
Skin: Warm and Dry
Neuro: Awake, Alert and Oriented
Hematologic/Lymphatic: No Lymphadenopathy
Psych: Calm
Impression / Plan
-
Impression:
Paroxysmal atrial fibrillation
Atrial fibrillation with rapid ventricular response
Essential hypertension
Hypothyroidism
Hypercholesterolemia
Type 2 diabetes
Macular degeneration
Stage IIIb chronic kidney disease
Malignant neoplasm of the colon
History of COVID-19
Scheduled for cardiac ablation in early August with Dr. Brewer
Plan:
She is in sinus rhythm
Cardizem drip is now off for some relative bradycardia
Initiated Cardizem CD1 80 mg daily
She is stable for discharge and if she can be discharged on her oral anticoagulation as well as Cardizem CD1 180 mg daily and she will follow-up with Dr. Brewer for her ablation in early August. I did discuss with Ms. Gan that if she feels
well she does not necessarily need to come to the emergency department and should give it her atrial fibrillation 24 to 48 hours to self convert unless she feels unwell. She understands and agrees.
Data Reviewed
-
EKG: Tracing Personally Visualized and interpreted
Labs: Labs Reviewed by me
Old Records: Reviewed
[2024-07-26] MEDS: CARDIZEM CD 180 MG PO (09:22)
[2024-07-26] MEDS: ELIQUIS 5 MG PO (09:22)
[2024-07-26] MEDS: PROTONIX 40 MG PO (09:24)
[2024-07-26 12:14] LABS: Glucose - Point of Care 132 mg/dl (70-99)
--- NOTE | 2024-07-26 12:49 | W.DCSUMMARY ---
Discharge Summary
Discharge Data
Date of Admission: 07/25/24
Date of Discharge: 07/26/24
-
Pending Results: No
Hospital Course
Patient 84 years old female with history hypertension hypothyroidism diabetes mellitus CKD presented to the hospital with A-fib RVR. Patient was placed on Cardizem drip. She was continued on her anticoagulation. Cardiology was consulted. Patient
converted into normal sinus rhythm the following day. Cardiology recommended switch Cardizem drip to oral Cardizem. Cardiology cleared for discharge today. No other events were noticed. Patient improved earlier than expected. Patient is going
to be discharged in stable condition today.
Discharge duration: 35 minutes
Discharge Plan
-
Patient Disposition: Home with Home Care
Discharge Diagnosis/Procedures: Paroxysmal atrial fibrillation. CKD stage IIIb. Hypertension. Hypothyroidism.
Diet: Low Cholesterol
Activity: As tolerated
Blood Work: Please PCP to order CBC, BMP within 1 week
Referrals:
Jossy Prajapati NP [Family Provider] - in less than 1 week
Stephen Mcconnell MD [Active] - in two to four weeks
Prescriptions:
New
diltiazem HCl 180 mg Capsule,Extended Release 24hr
180 mg PO DAILY 30 Days Qty: 30 0RF
Continued
cholecalciferol (vitamin D3) 2,000 UNITS tablet
2,000 units PO DAILY
ondansetron 4 MG tablet,disintegrating
4 mg PO Q6HPRN PRN (Reason: nausea)
PreserVision AREDS-2 1 EACH capsule
1 ea PO BID
cetirizine [Zyrtec] 10 mg Tablet
5 mg PO HSPRN PRN (Reason: allergies)
cyanocobalamin (vitamin B-12) 1,000 mcg Tablet
1,000 mcg PO DAILY
levothyroxine 75 mcg Tablet
75 mcg PO QPM
triamcinolone acetonide [Nasacort] 55 mcg Aerosol,[place]
2 spray INTRANASAL DAILYPRN PRN (Reason: conjestion)
valsartan 160 mg Tablet
160 mg PO HS
Patient Comments:
07/13/24: Patient stated she is currently taking 160mg, with plans to increase to 320mg in the future.
Saline Mist 0.65 % Aerosol,[place]
2 spray INTRANASAL DAILYPRN PRN (Reason: conjestion)
meclizine 25 mg Tablet
25 mg PO Q8 PRN (Reason: NIB)
Eliquis 5 mg Tablet
5 mg PO BID
acetaminophen [Tylenol Extra Strength] 500 mg Tablet
1,000 mg PO TID Qty: 1 0RF
Rx Instructions:
reevaluate the need to take after 3-4 days
pantoprazole 40 mg Tablet,Delayed Release (Dr/Ec)
40 mg PO DAILY Qty: 30 0RF
Discharge Orders:
Discharge Patient (As Directed); Ordered 07/26/24
Ordered By: Ze Rivas
Discharge Date and Time
Discharge Date/Time: 07/26/24 15:07
Print Language: MALAYSIAN
--- NOTE | 2024-07-26 13:39 | PTCARENOTE ---
07/26/24 [id number] Patient is for discharge to home. Family was concerned about her taking her medications properly. Case Management was consulted, Family spoke with Oksana on phone and expressed their concerns. Oksana will send referral out and call
[facility] Saturday. All questions were answered. Support given.
--- NOTE | 2024-07-26 14:50 | PTCARENOTE ---
07/26/24 1430 Discharge order given per Md. Telem pack and IV removed. Discharge instructions and medications reviewed with patient, reviewed follow up appointments and blood work that needs to be done. Support given, all questions were answered.
CM setting up VN with Floridalma. Pt escorted out in wheelchair by RN.
--- NOTE | 2024-07-27 11:00 | CM ---
Patient independent of ADLS, lives alone in a [facility].
== END 2024-07-26 15:07 | disposition home health service (06) | DRG 310 ==
LOC: IVU 16:00
PROVIDERS: Nurse Practitioner; Physician Assistant Medical; ADMITTING PHYSICIAN Internal Medicine; ATTENDING PHYSICIAN Hospitalist; CONSULT PHYSICIAN Internal Medicine Cardiovascular Disease; EMERGENCY PHYSICIAN Emergency Medicine; FAMILY PHYSICIAN Family Medicine
DX: I48.0 Paroxysmal atrial fibrillation (principal); I12.9 Hypertensive chronic kidney disease with stage 1 through stage 4 chronic kidney disease, or unspecified chronic kidney disease; N18.32 Chronic kidney disease, stage 3b; E03.9 Hypothyroidism, unspecified; E11.22 Type 2 diabetes mellitus with diabetic chronic kidney disease; Z66 Do not resuscitate; D72.829 Elevated white blood cell count, unspecified; E78.00 Pure hypercholesterolemia, unspecified; H35.30 Unspecified macular degeneration; K21.9 Gastro-esophageal reflux disease without esophagitis; K59.00 Constipation, unspecified; M11.20 Other chondrocalcinosis, unspecified site; Z79.01 Long term (current) use of anticoagulants; Z79.890 Hormone replacement therapy; Z87.19 Personal history of other diseases of the digestive system; Z85.038 Personal history of other malignant neoplasm of large intestine; Z86.16 Personal history of COVID-19; Z82.49 Family history of ischemic heart disease and other diseases of the circulatory system; Z90.710 Acquired absence of both cervix and uterus; Z87.891 Personal history of nicotine dependence; Z88.0 Allergy status to penicillin; Z88.1 Allergy status to other antibiotic agents; Z88.2 Allergy status to sulfonamides; Z88.5 Allergy status to narcotic agent; Z88.8 Allergy status to other drugs, medicaments and biological substances; Z91.040 Latex allergy status; Z80.0 Family history of malignant neoplasm of digestive organs
CPT/HCPCS: 74022; 80048; 80053; 81003; 82962; 83735; 84443; 84484; 85025; 85027; 87070; 93005; 96365; 96366; 99285

== ENCOUNTER 2024-08-06 15:14 | Emergency (ER) | payer MEDICARE, OTHER, SELFPAY ==
[2024-08-06 15:17] VITALS: BP 142/101
[2024-08-06 15:19] VITALS: BP 142/102
--- NOTE | 2024-08-06 16:40 | ED.GENMED ---
History of Present Illness
<Camilo Burton DO - Last Filed: 08/06/24 17:09>
General
Chief Complaint: Heart Rate Problem
Time Seen by Provider: 08/06/24 15:44
<Cesar Seo PA-C - Last Filed: 08/06/24 17:13>
General
Source: patient
Exam Limitations: none
History of Present Illness
History of Present Illness:
84-year-old female presents from facility where she lives independently with complaints of atrial fibrillation. She has a history of paroxysmal atrial fibrillation. She is anticoagulated on Eliquis not missing any doses. She is on Cardizem 180 mg
daily. She was here last about 10 days ago admitted overnight for rapid A-fib but converted after diltiazem initiation. She denies chest pain. She denies shortness of breath. No other complaints
Past History
<Camilo Burton DO - Last Filed: 08/06/24 17:09>
Past History
ED Past Medical History: Arrthythmia (Atrial fib), Cancer (Ileum), HTN, NIDDM, Hypothyroidism, Psychiatric and Other (Diverticulitis)
ED Past Surgical History: Appendectomy, Bowel resection (Ileum removed for CA), Cholecystectomy, Gynecological (Hysterectomy) and Tonsilectomy
Social History
Tobacco: Former smoker
Alcohol: Occasional
Drug: None
Personal:
Living: assisted living
Employment: Retired
Family History
Family History: Other (Coronary artery disease, brother with pancreatic cancer, sister with CHF)
Phy Exam
<Cesar Seo PA-C - Last Filed: 08/06/24 17:13>
Physical Exam
Physical Exam:
General: Well-appearing female no acute distress
HEENT: Normal cephalic atraumatic
Heart: Regular rate and rhythm no murmurs
Lungs: Clear no wheeze
Abdomen is soft nontender nondistended no guarding or rebound
Extremities: No cyanosis or edema
Course
<Camilo Burton DO - Last Filed: 08/06/24 17:09>
Orders/Labs/Results
Orders:
Orders
08/06/24 15:21
Electrocardiogram (*1) Urgent
Reason for Study: Palpitations
EKG- Treatment ONCE
Vital Signs
Initial and Last Documented VS:
Initial Vital Signs
Temp Pulse Resp BP Pulse Ox
98.1 F 95 20 142/101 100
08/06/24 15:17 08/06/24 15:17 08/06/24 15:17 08/06/24 15:17 08/06/24 15:17
Last Documented Vital Signs
Temp Pulse Resp BP Pulse Ox
98.1 F 92 17 142/102 99
08/06/24 15:17 08/06/24 16:00 08/06/24 16:00 08/06/24 15:19 08/06/24 16:00
<Cesar Seo PA-C - Last Filed: 08/06/24 17:13>
Orders/Labs/Results
Orders:
Orders
08/06/24 15:21
Electrocardiogram (*1) Urgent
Reason for Study: Palpitations
EKG- Treatment ONCE
Vital Signs
Initial and Last Documented VS:
Initial Vital Signs
Temp Pulse Resp BP Pulse Ox
98.1 F 95 20 142/101 100
08/06/24 15:17 08/06/24 15:17 08/06/24 15:17 08/06/24 15:17 08/06/24 15:17
Last Documented Vital Signs
Temp Pulse Resp BP Pulse Ox
98.1 F 92 17 142/102 99
08/06/24 15:17 08/06/24 16:00 08/06/24 16:00 08/06/24 15:19 08/06/24 16:00
<Cesar Seo PA-C - Last Filed: 08/06/24 17:13>
MDM/Problems Addressed
Differential Diagnosis Includes:
Patient apparently converted to a sinus rhythm on her way here. She was in rapid atrial fibrillation prior to arrival. She has been in sinus the entire time here. I reviewed her prior records. She was here on July 26 kept overnight but self
converted back into sinus rhythm. She is due for an ablation August 20. Blood pressure stable. Discussed with emergency room attending saw the patient and spoke with cardiology. Cardiology recommended increasing diltiazem to 240 mg extended
release daily. She will be discharged with follow-up.
<Cesar Seo PA-C - Last Filed: 08/06/24 17:13>
*Critical Care Note
Total Time (30-74mins, 75-104mins- exclusive of procedures): Not Applicable
ED Attending Note
<Camilo Burton DO - Last Filed: 08/06/24 17:09>
ED Attending Note
Patient seen and examined by attending physician: Yes
I performed the substantive portion of visit, reviewed & personally made and approve the management plan that is documented in note by myself or FRANCHESKA.: Yes
ED Attending Note:
seen with Pa, agree with a/p
PAF on Cardizem and Eliquis, went into A-fib for 20 or 30 minutes today, converted spontaneously scheduled for ablation and on the monitor here for about an hour no recurrence, plan will be to touch base with cardiology, provide reassurance, have
her follow-up as scheduled
-
Portions of this chart may have been created with voice recognition software.� Occasional wrong word or��sound alike� substitutions may have occurred due to the inherent limitations of voice recognition software.
Discharge Plan
Departure
Patient Disposition: Home (Routine Discharge)
Date of Disposition: 08/06/24
Time of Disposition: 17:12
Patient with high blood pressure during this ER visit?: No
Discharge Problem:
Atrial fibrillation
Instructions: Atrial Fibrillation (DC)
Prescriptions:
New
diltiazem HCl [Cardizem CD] 240 mg capsule,extended release 24hr
240 mg PO DAILY Qty: 30 0RF
No Action
cholecalciferol (vitamin D3) 2,000 UNITS tablet
2,000 units PO DAILY
ondansetron 4 MG tablet,disintegrating
4 mg PO Q6HPRN PRN (Reason: nausea)
PreserVision AREDS-2 1 EACH capsule
1 ea PO BID
cetirizine [Zyrtec] 10 mg Tablet
5 mg PO HSPRN PRN (Reason: allergies)
cyanocobalamin (vitamin B-12) 1,000 mcg Tablet
1,000 mcg PO DAILY
levothyroxine 75 mcg Tablet
75 mcg PO QPM
triamcinolone acetonide [Nasacort] 55 mcg Aerosol,[place]
2 spray INTRANASAL DAILYPRN PRN (Reason: conjestion)
valsartan 160 mg Tablet
160 mg PO HS
Patient Comments:
07/13/24: Patient stated she is currently taking 160mg, with plans to increase to 320mg in the future.
Saline Mist 0.65 % Aerosol,[place]
2 spray INTRANASAL DAILYPRN PRN (Reason: conjestion)
meclizine 25 mg Tablet
25 mg PO Q8 PRN (Reason: NIB)
Eliquis 5 mg Tablet
5 mg PO BID
acetaminophen [Tylenol Extra Strength] 500 mg Tablet
1,000 mg PO TID Qty: 1 0RF
Rx Instructions:
reevaluate the need to take after 3-4 days
pantoprazole 40 mg Tablet,Delayed Release (Dr/Ec)
40 mg PO DAILY Qty: 30 0RF
diltiazem HCl 180 mg Capsule,Extended Release 24hr
180 mg PO DAILY 30 Days Qty: 30 0RF
Referrals:
Jossy Prajapati NP [Family Provider] -
Activity Restrictions/Additional Instructions:
Start diltiazem 240 mg extended release daily. Continue to follow-up with cardiology. Return if needed
Interventions
Interventions:
*Risk Screen - Suicide Last Done: 08/06/24 15:22
*General Assessment Last Done: 08/06/24 15:22
*Neglect/Abuse Screening Last Done: 08/06/24 15:22
*ED COVID-19 Vaccine History Last Done: 08/06/24 15:21
ED- Cardiac Assessment Last Done: 08/06/24 15:23
ED- Pulmonary Assessment Last Done: 08/06/24 15:23
Discharge Date and Time
Print Language: NIGERIAN
== END 2024-08-06 17:41 | disposition home or self-care (01) ==
LOC: EMR 15:14
PROVIDERS: EMERGENCY PHYSICIAN Emergency Medicine; FAMILY PHYSICIAN Family Medicine
DX: I48.0 Paroxysmal atrial fibrillation (principal); I10 Essential (primary) hypertension; Z87.891 Personal history of nicotine dependence
CPT/HCPCS: 99283; 93005

== ENCOUNTER 2024-08-14 15:47 | Emergency (ER) | payer MEDICARE, OTHER, SELFPAY ==
[2024-08-14 15:51] VITALS: BP 152/74
[2024-08-14 16:27] LABS: % Basophils 0.4 % (0-2); % Eosinophils 2.2 % (0-6); % Immature Granulocytes 0.4 % (0-0.5); % Lymphocytes 31.4 % (20.5-51.1); % Monocytes 7.7 % (1.7-9.3); % Neutrophils 57.9 % (42.2-75.2); Absolute Eosinophils 0.2 10^3/uL (0-0.7); Absolute Lymphocytes 2.9 10^3/uL (1.2-3.4); Absolute Monocytes 0.7 10^3/uL (0.1-0.6); Absolute Neutrophils 5.4 10^3/uL (1.4-6.5); Hematocrit 36.8 % (37.0-47.0); Hemoglobin 12.3 g/dL (12.0-16.0); Mean Corp Hgb Conc. 33.4 g/dL (33.0-37.0); Mean Corpuscular Hgb 28.1 pg (27.0-31.0); Mean Corpuscular Volume 84.2 fL (81.0-99.0); Mean Platelet Volume 9.8 fL (7.4-10.4); Nucleated Red Blood Cells % 0 %; Platelet Count 302 10^3/uL (130-400); Red Blood Cell Count 4.37 10^6/uL (4.20-5.40); Red Cell Dist. Width 15.5 % (11.5-14.5); White Blood Cell Count 9.3 10^3/uL (4.8-10.8)
[2024-08-14 16:40] LABS: ALT (SGPT) 14 U/L (0-35); AST (SGOT) 24 U/L (14-36); Albumin 4.3 g/dl (3.5-5.0); Alkaline Phosphatase 65 U/L (38-126); Blood Urea Nitrogen 27 mg/dl (7-17); Calcium 9.7 mg/dl (8.4-10.2); Carbon Dioxide 21 mmol/L (22-30); Chloride 106 mmol/L (98-107); Glucose 138 mg/dl (70-99); Sodium 141 mmol/L (135-145); Total Bilirubin 0.5 mg/dl (0.2-1.3); Total Protein 7.7 g/dl (6.3-8.2); eGFR 55.21
[2024-08-14 16:51] LABS: Troponin I < 0.012 ng/ml
--- NOTE | 2024-08-14 17:33 | ED.GENMED ---
History of Present Illness
General
Chief Complaint: Heart Rate Problem
Source: patient
Exam Limitations: none
Time Seen by Provider: 08/14/24 17:32
Nursing documentation reviewed up to this point in time: agreed with
History of Present Illness
History of Present Illness:
84-year-old female history of atrial fibrillation states she has been on and off and atrial fibrillation 'for years,' she is to have an ablation done by Dr. Brewer on 08/20. Earlier today her heart rate was faster than usual and on her Apple
Watch it was 'well over 100.' She called EMS due to feeling dizzy and lightheaded with a fast heart rate and, she had 'a little' chest discomfort but that has subsided, her heart rate was 150s when EMS arrived. When patient arrived to triage her
heart rate was in the 90s. She denies chest pain or trouble breathing at this time, she wants to go home.
Past History
Past History
ED Past Medical History: Arrthythmia (Atrial fib), Cancer (Ileum), HTN, NIDDM, Hypothyroidism, Psychiatric and Other (Diverticulitis)
ED Past Surgical History: Appendectomy, Bowel resection (Ileum removed for CA), Cholecystectomy, Gynecological (Hysterectomy) and Tonsilectomy
Social History
Tobacco: Former smoker
Alcohol: Occasional
Drug: None
Personal:
Living: assisted living
Employment: Retired
Family History
Family History: Other (Coronary artery disease, brother with pancreatic cancer, sister with CHF)
Review of Systems
Review of Systems
Allergies reviewed?: Yes
All Other Systems: ROS reviewed and negative except as documented in HPI and ROS
Constitutional: Denies fever or fatigue
Respiratory: Denies trouble breathing
Cardiac: Reports palpitations; Denies chest pain, diaphoresis or syncope
ABD/GI: Denies abdominal pain, nausea, vomiting or diarrhea
: Denies dysuria, frequency, difficulty voiding or urgency
Musculoskeletal: Reports no symptoms
Skin: Reports no symptoms
Neurological: Reports no symptoms
Phy Exam
Physical Exam
Physical Exam:
GENERAL: No acute distress. A&Ox3.
CONSTITUTIONAL: Afebrile.
ENMT: moist mucus membranes, Pharynx nl
RESPIRATORY: Regular respirations, nonlabored, lungs clear.
CARDIOVASCULAR: Regular rate and rhythm, no murmurs, no rubs.
GI: Soft, nontender, normal BS
MUSCULOSKELETAL: Moves with ease. Well perfused.
SKIN: Warm, dry, pink
PSYCH: Normal mood and affect. Well kept, interactive and appropriate
NEUROLOGIC: Awake, alert and oriented. No focal neurological deficits
Course
Orders/Labs/Results
Orders:
Orders
08/14/24 15:56
EKG [Electrocardiogram (*1)] Urgent
Reason for Study: Palpitations
EKG- Treatment ONCE
08/14/24 16:09
Complete Blood Count/With Diff Urgent
Comprehensive Metabolic Panel Urgent
Troponin I Urgent
08/14/24 18:27
Diltiazem Extended Release [Cardizem Cd] 180 mg PO NOW STA
Abnormal Lab Results
08/14/24
16:09
Hct 36.8 L %
(37.0-47.0)
RDW 15.5 H %
(11.5-14.5)
Absolute Monos (auto) 0.7 H 10^3/uL
(0.1-0.6)
Carbon Dioxide 21 L mmol/L
(22-30)
BUN 27 H mg/dl
(7-17)
Glucose 138 H mg/dl
(70-99)
08/14/24 16:09
08/14/24 16:09
Vital Signs
Initial and Last Documented VS:
Initial Vital Signs
Pulse Resp BP Pulse Ox
77 16 152/74 100
08/14/24 15:51 08/14/24 15:51 08/14/24 15:51 08/14/24 15:51
Last Documented Vital Signs
Pulse Resp BP Pulse Ox
84 18 160/85 98
08/14/24 18:35 08/14/24 18:30 08/14/24 18:35 08/14/24 18:30
MDM/Problems Addressed
Differential Diagnosis Includes:
A-fib with RVR, SC
MDM/Problems Addressed:
84-year-old female history of atrial fibrillation states she has been on and off and atrial fibrillation 'for years,' she is to have an ablation done by Dr. Brewer on 08/20. Earlier today at 1 p.m. she felt palpitations and her heart rate was
faster than usual and on her Apple Watch it was 'well over 100.' She called EMS due to feeling dizzy and lightheaded with a fast heart rate and, she had 'a little' chest discomfort but that has subsided, her heart rate was 150s when EMS arrived.
When patient arrived to triage her heart rate was in the 90s. She denies chest pain or trouble breathing at this time, she wants to go home.
Rhythm strip from EMS from 15:07 showed NSR with a short burst of heart rate going to 137 and then by 15:24 is back to normal sinus
EKG NSR heart rate 72
5:40 p.m.
CBC unremarkable
CMP: BUN 27 otherwise normal
Troponin within normal limits
Patient is asymptomatic at this time and wants to go home
6:20 p.m.
Pt remains NSR and asymptomatic. Extra dose of Cardizem CD given
Stable for discharge
She has appt for ablatiion with Dr. Brewer on 08/20.
Return instructions discussed
*Critical Care Note
Total Time (30-74mins, 75-104mins- exclusive of procedures): Not Applicable
ED Attending Note
-
Portions of this chart may have been created with voice recognition software.� Occasional wrong word or��sound alike� substitutions may have occurred due to the inherent limitations of voice recognition software.
Discharge Plan
Departure
Patient Disposition: Home (Routine Discharge)
Date of Disposition: 08/14/24
Time of Disposition: 18:28
Patient with high blood pressure during this ER visit?: No
Condition: Good
Discharge Problem:
AF (paroxysmal atrial fibrillation)
Instructions: Atrial Fibrillation (DC)
Prescriptions:
No Action
cholecalciferol (vitamin D3) 2,000 UNITS tablet
2,000 units PO DAILY
ondansetron 4 MG tablet,disintegrating
4 mg PO Q6HPRN PRN (Reason: nausea)
PreserVision AREDS-2 1 EACH capsule
1 ea PO BID
cetirizine [Zyrtec] 10 mg Tablet
5 mg PO HSPRN PRN (Reason: allergies)
cyanocobalamin (vitamin B-12) 1,000 mcg Tablet
1,000 mcg PO DAILY
levothyroxine 75 mcg Tablet
75 mcg PO QPM
triamcinolone acetonide [Nasacort] 55 mcg Aerosol,[place]
2 spray INTRANASAL DAILYPRN PRN (Reason: conjestion)
valsartan 160 mg Tablet
160 mg PO HS
Patient Comments:
07/13/24: Patient stated she is currently taking 160mg, with plans to increase to 320mg in the future.
Saline Mist 0.65 % Aerosol,[place]
2 spray INTRANASAL DAILYPRN PRN (Reason: conjestion)
meclizine 25 mg Tablet
25 mg PO Q8 PRN (Reason: NIB)
Eliquis 5 mg Tablet
5 mg PO BID
acetaminophen [Tylenol Extra Strength] 500 mg Tablet
1,000 mg PO TID Qty: 1 0RF
Rx Instructions:
reevaluate the need to take after 3-4 days
pantoprazole 40 mg Tablet,Delayed Release (Dr/Ec)
40 mg PO DAILY Qty: 30 0RF
diltiazem HCl 180 mg Capsule,Extended Release 24hr
180 mg PO DAILY 30 Days Qty: 30 0RF
diltiazem HCl [Cardizem CD] 240 mg capsule,extended release 24hr
240 mg PO DAILY Qty: 30 0RF
diltiazem HCl 180 mg capsule,extended release 24hr
180 mg PO DAILY Qty: 30 0RF
Referrals:
Jossy Prajapati NP [Family Provider] -
Bam Brewer MD [Active] - Keep scheduled appt
Activity Restrictions/Additional Instructions:
As we discussed, you have been in normal rhythm since arrival.
You received an extra dose of Cardizem CD (Diltiazem) 180 mg here today
Return here at any time for rapid heartbeat, nausea/vomiting, chest pain, trouble breathing or feeling worse in any way.
Interventions
Interventions:
*Risk Screen - Suicide Last Done: 08/14/24 15:51
*General Assessment Last Done: 08/14/24 15:51
*Neglect/Abuse Screening Last Done: 08/14/24 15:51
*ED COVID-19 Vaccine History Last Done: 08/14/24 17:37
*Nursing Disposition Last Done: 08/14/24 18:54
ED- Cardiac Assessment Last Done: 08/14/24 17:37
ED- Pulmonary Assessment Last Done: 08/14/24 17:37
Discharge Date and Time
Discharge Date/Time: 08/14/24 18:55
Print Language: KYRGYZ
[2024-08-14 17:38] VITALS: BP 156/79
[2024-08-14 17:40] VITALS: BMI 26.4
[2024-08-14 18:00] VITALS: BP 160/85
[2024-08-14] MEDS: CARDIZEM CD 180 MG PO (18:35)
== END 2024-08-14 18:55 | disposition home or self-care (01) ==
LOC: EMR 15:47
PROVIDERS: EMERGENCY PHYSICIAN Emergency Medicine; FAMILY PHYSICIAN Family Medicine
DX: I48.0 Paroxysmal atrial fibrillation (principal); I10 Essential (primary) hypertension; E11.9 Type 2 diabetes mellitus without complications; E03.9 Hypothyroidism, unspecified; Z82.49 Family history of ischemic heart disease and other diseases of the circulatory system; Z87.891 Personal history of nicotine dependence; Z90.49 Acquired absence of other specified parts of digestive tract; Z90.710 Acquired absence of both cervix and uterus
CPT/HCPCS: 99283; 80053; 84484; 85025; 93005

== ENCOUNTER 2024-08-20 05:56 | Day surgery (SDC) | payer MEDICARE, OTHER, SELFPAY ==
[2024-08-20] VITALS (20 sets, daily range): BP systolic 114–181; BP diastolic 64–93; BMI 24.3
[2024-08-20 07:05] LABS: Glucose - Point of Care 133 mg/dl (70-99)
[2024-08-20 09:23] LABS: ACT-LR - POC 360 Seconds (116-155)
[2024-08-20 09:43] LABS: ACT-LR - POC 331 Seconds (116-155)
--- NOTE | 2024-08-20 10:23 | PTCARENOTE ---
Received pt from [facility] procedure drowsy but easily arousable. Pt's speech is clear and appropriate. Pt following commands. No facial droop noted. Pupils equal and reactive. Equal upper extremity strength noted. Normal dorsal and plantar flexion. Pt
immediately c/o nausea. Pt received 2 doses of zofran, plus pepcid, and decadron in procedure room. Dr Daniel aware via tigertext. Awaiting response.
--- NOTE | 2024-08-20 10:32 | ITS.CL.ABL ---
J[employer] - Ablation
Ablation
Procedure Report:
ELECTROPHYSIOLOGIC STUDY AND POSSIBLE ABLATION
DATE: August 20, 2024
Primary Care Provider: Dr Jossy Prajapati
Primary Manager Valuation: Dr. Carlos A Baker
INDICATION:
Symptomatic Atrial Fibrillation.
Paroxysmal
HISTORY: See H and P.
Symptomatic AF, poorly controlled with attempted medical therapy.
She has been attempted on antiarrhythmic drug therapy but is found to be intolerant to amiodarone and beta-blockers. She felt very poorly on these medications with lightheadedness, falling, and orthostasis. She has been off both medications since
February 2024. She has had increased frequency of atrial fibrillation since then.
HAS-BLED: 2
Age
Abnormal Renal Function
CHADSVASc: 5
HTN
Age
DM
F Gender
PRESENTING RHYTHM: SR
HISTORY: See H and P.
Symptomatic AF, poorly controlled with attempted medical therapy.
ANTICOAGULATION: Eliquis 5 mg twice daily
'TIME-OUT': called and confirmed.
SEDATION/ANESTHESIA: provided via the anesthesia department using general anesthesia.
PROCEDURE:
Ultrasound Guidance performed by me was utilized for femoral venous Vascular Access b/l.
A decapolar CS catheter was placed within the CS for mapping and pacing.
The intracardiac ultrasound catheter was positioned in the RA for continuous intracardiac ultrasound imaging.
Heparin bolus and infusion to target ACT at 300 -350 seconds was administered. Transseptal puncture was performed. This entailed advancing a sheath with dilator into the superior vena cava and withdrawing both (monitoring intracardiac ultrasound,
fluoroscopy and tip pressure) with the tip oriented toward the atrial septum. The fossa ovalis was engaged (indicated by sudden displacement of the sheath tip as well as tenting of the fossa seen on intracardiac ultrasound).
AcAutoniqross transseptal system was used. Left atrial catheter position was confirmed by echocardiographic imaging, pressure monitoring (LA mean pressure 5 mm Hg) and fluoroscopy. The sheath was advanced over the dilator and positioned in the left
atrium.
The multipolar mapping catheter was initially positioned through the transseptal sheath for high density mapping.
Geometry and voltage mapping was performed using the Boland multipolar grid catheter. Ensite-X was utilized for three-dimensional electroanatomical mapping.
A 3-D map was created using Ensite-X in Voxel mode. A 3-D reconstructed CT image was compared to the 3-D Navex map to assist in anatomic evaluation, mapping and ablation.
The [employer] Pulse Select PFA catheter and system was used for cardiac ablation. Catheter positioning was guided and confirmed using both I.C.E. and fluoroscopy.
PV isolation approach was used to electrically isolate each PV ostia (LSPV, LIPV, RSPV, RIPV).
Additional energy applications/additional ablation set was required to accomplish wide area circumferential ablation around each of the pulmonary vein sets and additionally ablation to accomplish LA posterior wall ablation.
Remapping with the Boland multipolar grid catheter found that all PVPs were eliminated at each vein demonstrating entrance block. Also pacing from the multipolar mapping catheter around the the circumference of the ostia was performed at 10 ma and
2.0 msec output to assess for exit block. This demonstrated electrical isolation at each of the pulmonary vein ostia (LSPV, LIPV, RSPV, RIPV). There is also entrance and exit block at the LA posterior wall.
Programmed electrostimulation failed to induce any sustained arrhythmias.
I.C.E. :
Pre-Ablation Post-Ablation
LVEF: 55 % 55 %
WMA: none none
Pericardial effusion: none none
COMPLICATIONS:
None
SUMMARY:
- Mapping and ablation to isolate the PVs
- Additional AF ablation set after PVI.
- 3-D Electroanatomical Mapping
- Intracardiac Ultrasound
Post ablation, I discussed today's findings and results with the patient's friend, Eva.
RECOMMENDATIONS:
- Observe in monitored bed.
- Maintain oral anticoagulation.
- Continue cardiovascular care with Dr Carlos A Baker
Copy to:
Dr Jossy Prajapati
Dr. Carlos A Baker
--- NOTE | 2024-08-20 10:37 | PTCARENOTE ---
Dr Daniel at pt bedside assessing pt's nausea.
--- NOTE | 2024-08-20 10:50 | PTCARENOTE ---
Dr Daniel ordered Benadryl 12.5mg IVP for nausea. Dr Daniel aware of pt's allergy to benadryl with reaction of irregular heart beat. Pharmacy called as well and states ok to give under direction of doctor. Patient aware and states she feels
comfortable getting benadryl IV in a small dose. Will administer Benadryl as ordered.
--- NOTE | 2024-08-20 11:00 | PTCARENOTE ---
Pt c/o left side of face feeling 'thick'. Pt's speech is clear and appropriate. Pt following commands. No facial droop noted. Pupils 3mm equal and reactive. Equal upper extremity strength noted. Le CHEW made aware and in to evaluate pt. Pt
states her right side of face is also becoming numb as well as the left side of her face. Pt denies headache at this time. Le CHEW states to continue to monitor pt at this time.
[2024-08-20] MEDS: BENADRYL 12.5 MG IV (11:03)
--- NOTE | 2024-08-20 11:30 | PTCARENOTE ---
Pt states her vision is getting blurred and considerably worse than normal. Pt states her left lip is feeling 'funny'. Pt states her right side of her cheeck has less sensation than left. Rapid response called.
--- NOTE | 2024-08-20 11:35 | PTCARENOTE ---
Rapid response arrived at 1133 and stroke team arrived at 1134.
--- NOTE | 2024-08-20 11:38 | PTCARENOTE ---
Neurologist arrived at bedside and assessing pt.
--- NOTE | 2024-08-20 11:40 | PTCARENOTE ---
Addendum entered by Bertha Ortega RN 08/20/24 11:45:
Adjustment to time. Rapid response called at 1131 and accucheck of 133 at 1132.
Original Note:
Rapid response called. Accucheck is 133.
--- NOTE | 2024-08-20 11:42 | PTCARENOTE ---
Pt transferred to Ct scan Via stretcher with personnel monitor with neurologist and stroke team.
[2024-08-20 11:43] LABS: Glucose - Point of Care 133 mg/dl (70-99)
--- NOTE | 2024-08-20 12:01 | W.PN.UPDATE ---
Update Note
Progress Note Update
CTSP by RN for c/o Right facial numbness and Left eye visual changes. On exam AAOx3, speech appropriate except dry mouth, no facial droop, motor strength intact UE/LE bilateral, Right cheek with decreased sensation to touch, PEERL but blurred vision
in left eye. Stroke alert called as she states visual changes were worsening. CT head ordered. Dr. Lane at bedside and Dr. Brewer made aware. She will be admitted for observation overnight. She declines any further testing at this time.
--- NOTE | 2024-08-20 12:12 | PTCARENOTE ---
Le CHEW at pt bedside assessing pt. Pt states no change in the numbness of her face. Pt's speech remains clear. No facial droop noted. Pt states her nausea is better and tolerable. Will continue to monitor.
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
--- NOTE | 2024-08-20 15:05 | CM ---
Reviewed chart. Met with Mrs. Gan to review discharge plans. She states prior to admission she resides alone in a first floor [facility]. She states prior to admission she uses a rollator for balance. She states she
has a rollator and single point cane at home. She states she has a prescription plan and uses [facility]. The discharge plan is to return to her apartment at [facility] when medically stable.
[2024-08-20] MEDS: SYNTHROID 75 MCG PO (17:59)
--- NOTE | 2024-08-20 18:34 | PTCARENOTE ---
Pt received from recovery area post ablation. Neuro assessment improved throughout the afternoon, pt states that her vision in her left eye is now and her face is now 'back to normal'. Pt speaks very clearly and is oriented X 3. Pt OOB with minimal
assistance to bathroom, no vertigo reported. Pt placed on fall precautions , she is calling appropriately for assistance. Right femoral vein site with dry and intact dressing , no sign of bleeding or hematoma. Telemetry shows sinus rhythm.
[2024-08-20] MEDS: ELIQUIS 5 MG PO (19:43)
[2024-08-20] MEDS: DIOVAN 160 MG PO (22:29)
--- NOTE | 2024-08-21 00:39 | PTCARENOTE ---
Pt. NSR on the monitor, VSS. Right groin site dressing CDI without drainage/hematoma, peripheral circulation intact. NIH score 0, pt. states all symptoms that triggered yesterday's stroke alert have resolved, neuro assessment benign. Pt. OOB with
assist x 1 & RW to use bathroom as needed. Currently sleeping.
[2024-08-21 03:45] VITALS: BP 144/89
[2024-08-21 04:19] LABS: Hematocrit 31.9 % (37.0-47.0); Hemoglobin 10.7 g/dL (12.0-16.0); Mean Corp Hgb Conc. 33.5 g/dL (33.0-37.0); Mean Corpuscular Hgb 28.2 pg (27.0-31.0); Mean Corpuscular Volume 84.2 fL (81.0-99.0); Mean Platelet Volume 9.7 fL (7.4-10.4); Platelet Count 262 10^3/uL (130-400); Red Blood Cell Count 3.79 10^6/uL (4.20-5.40); Red Cell Dist. Width 15.9 % (11.5-14.5); White Blood Cell Count 11.2 10^3/uL (4.8-10.8)
[2024-08-21 04:28] LABS: Blood Urea Nitrogen 26 mg/dl (7-17); Calcium 9.5 mg/dl (8.4-10.2); Carbon Dioxide 21 mmol/L (22-30); Chloride 108 mmol/L (98-107); Estimated Creatinine Clearance 34 ml/min; Glucose 153 mg/dl (70-99); HDL Cholesterol 80 mg/dl; LDL Cholesterol, Calculated 168 mg/dl; Magnesium 1.8 mg/dl (1.6-2.3); Potassium 4.5 mmol/L (3.5-5.1); Sodium 141 mmol/L (135-145); Total Cholesterol 268 mg/dl (50-199); Triglyceride 102 mg/dl (10-149); Very Low Density Lipoprotein 20 mg/dl (0-30); eGFR 49.24
[2024-08-21 07:03] VITALS: BP 130/68
[2024-08-21] MEDS: CARDIZEM CD 240 MG PO (07:27)
[2024-08-21] MEDS: PROTONIX 40 MG PO (07:27)
[2024-08-21] MEDS: ELIQUIS 5 MG PO (07:27)
--- NOTE | 2024-08-21 07:57 | W.PN.CARDCBS ---
Addendum entered and electronically signed by Sorin Puentes DO 08/21/24 10:23:
I saw and examined the patient.
The Track Hoe Operator's note was reviewed and I agree with the note.
Comment:
Patient seen and examined's morning. No acute events overnight. Patient resting comfortably reporting resolution of visual field defects and facial numbness. Patient denies any chest pain, lightheadedness, dizziness, near-syncope, syncope, PND,
orthopnea, palpitations, or weakness. She notes brief occasional shortness of breath but is improved overnight and not currently present. Telemetry demonstrates sinus rhythm/sinus tachycardia occasional brief PAT. Patient denied any symptoms
associated with this.
GENERAL: no acute distress
EYE: sclera anicteric
NECK: Supple, no JVD, no carotid bruit appreciated
ENT: normal nose, moist mucosal membranes
CARDIAC: Regular rate and rhythm, +S1/S2, no murmur, rubs, or gallops
CHEST/PULMONARY: Normal effort, clear breath sounds
ABDOMEN: Soft, without focal tenderness or distention
NEUROLOGICAL: Alert and oriented x3
SKIN: Warm and dry, no rash; right groin site soft, nontender, no swelling, erythema, or ecchymosis.
PSYCH: Normal and appropriate interaction.
Patient stable status post PFA PVI with Dr Brewer (08/20/2024)
Symptoms had resolved (visual changes and decree sensation of facial nerves)
No AF or sustained atrial arrhythmia; EKG SR
Groin stable
Okay to continue oral anticoagulation and diltiazem; plan for weaning diltiazem as outpatient with Dr. Baker
Patient intolerant to statin, ezetimibe; may benefit from PCSK9 for LDL reduction based on neurology recs
Outpatient imaging versus inpatient imaging per neurology
No heavy lifting or strenuous activity/activity restrictions reviewed with patient, patient verbalized understanding
Stable for DC home from CV standpoint; appreciate input as mentioned above from neurology prior to DC
Original Note:
Today's Communication / Plan
-
stable for d/c home today
Impression / Plan
-
Primary Care Provider: Dr Jossy Prajapati
Primary Eligibility And Occupancy Interviewer: Dr. Carlos A Baker
Impression:
Symptomatic paroxysmal Atrial fibrillation
post PVI 08/19/24
HTN
HLD
DM2
Hypothyroidism
CKD3b
colon cancer with resection
Plan:
post ablation had visual changes and decreased sensation of facial nerves
all symptoms resolved this am, appreciate neuro input
groin stable
tele SR no sig ectopy
OAC Eliquis 5mg bid
CHADSVASC2=6
Continue dilitazem
LDL 168, intolerant of all statins and ezetimibe, discussed PCSK9i and she is interested but wants to discuss with her PCP
Activity restrictions reviewed
f/u Dr. Baker in 3 mo
stable for d/c home today
Progress Note - Eligibility And Occupancy Interviewer
Subjective
Date of Service: August 21, 2024
denies cp, sob, mild sore throat, denies any numbness of face or L eye visual field cuts
Objective
Labs:
08/21/24 03:55
08/21/24 03:55
Labs
Hgb 10.7 g/dL (12.0-16.0) L 08/21/24 03:55
Hct 31.9 % (37.0-47.0) L 08/21/24 03:55
Plt Count 262 10^3/uL (130-400) 08/21/24 03:55
Sodium 141 mmol/L (135-145) 08/21/24 03:55
Potassium 4.5 mmol/L (3.5-5.1) 08/21/24 03:55
BUN 26 mg/dl (7-17) H 08/21/24 03:55
Creatinine 1.1 mg/dL (0.6-1.0) H 08/21/24 03:55
Glucose 153 mg/dl (70-99) H 08/21/24 03:55
Vital Signs and I&O:
Vital Signs
Temp Pulse Resp BP Pulse Ox
98.8 F 80 20 130/68 98
08/21/24 07:01 08/21/24 07:03 08/21/24 07:01 08/21/24 07:03 08/21/24 07:37
Vital Signs
Temp Pulse Resp BP Pulse Ox
98.8 F 80 20 130/68 98
08/21/24 07:01 08/21/24 07:03 08/21/24 07:01 08/21/24 07:03 08/21/24 07:37
Intake & Output
08/19/24 08/20/24 08/21/24 08/22/24
06:59 06:59 06:59 06:59
Intake Total 960 / 960
Balance 960 / 960
Physical Exam
Physical Exam
General: No acute distress, AAOX3
HEENT: EOMI b/l
Neck: Negative JVD, Neg carotid bruits b/l
Heart: Regular, Negative S3 positive S1/S2, Negative S4, No murmur
Lungs: CTA b/l, negative wheezes/rales/rhonchi
Abd: Positive BS, NT/ND, neg rebound/rigidity/guarding
Ext: Negative cyanosis/clubbing/edema
Neuro: nonfocal
Skin: warm, dry, no rash, R fem site c/d/i no HT, soft
--- NOTE | 2024-08-21 09:16 | W.DS.TRANS ---
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
-
Discharge Instructions:
Sleep Apnea Risk Intermediate
Discharge Diagnosis/Procedures Afib post ablation
Diet Low Cholesterol
Driving Restrictions No driving for 24 hours
Instructions:
Stand-Alone Forms: DC Instructions- Cath/EP Lab
Changes to Home Medications: No
Discharge Medications:
DC Medications w/original date entered in [employer]
cholecalciferol (vitamin D3) 50 mcg (2,000 unit) tablet 2,000 units PO DAILY Supplement 12/19/21
ondansetron 4 mg disintegrating tablet 4 mg PO Q6HPRN PRN nausea 01/22/22
vit C 250 mg-vit E 90 mg-zinc 40 mg-copper 1 [id number] capsule (PreserVision AREDS-2) 1 ea PO BID Supplement 01/22/22
cetirizine 10 mg tablet (Zyrtec) 5 mg PO HSPRN PRN allergies 07/13/24
cyanocobalamin (vitamin B-12) 1,000 mcg tablet 1,000 mcg PO DAILY Supplement 07/13/24
levothyroxine 75 mcg tablet 75 mcg PO QPM Thyroid 07/13/24
triamcinolone acetonide 55 mcg nasal spray aerosol (Nasacort) 2 spray intranasal DAILYPRN PRN conjestion 07/13/24
valsartan 160 mg tablet 160 mg PO HS Blood Pressure 07/13/24
apixaban 5 mg tablet (Eliquis) 5 mg PO BID Blood Clot Prevention/Tx 07/18/24
meclizine 25 mg tablet 25 mg PO Q8 PRN NIB 07/18/24
acetaminophen 500 mg tablet (Tylenol Extra Strength) 1,000 mg (2 x 500 mg) PO TID #1 tab 07/19/24
pantoprazole 40 mg tablet,delayed release 40 mg PO DAILY #30 tabs 07/19/24
[place] 2 tab PO DAILYPRN PRN constipation 08/20/24
diltiazem HCl 240 mg capsule,24 hr,extended release 240 mg PO DAILY 08/20/24
triamcinolone acetonide 55 mcg nasal spray aerosol (Nasacort) 1 - 2 spray intranasal DAILYPRN PRN nasal congestion 08/20/24
Home Medication Changes
Pending Results: No
--- NOTE | 2024-08-21 10:49 | CM ---
Reviewed chart. Met with Mrs. Gan to review discharge plans. She states she is feeling well and maybe able to go home soon. She states she is current with [facility] . She is agreeable to continue with the services. Telephone call to [facility]
A Intake to make the referral. Sent the referral. Prior to admission she resides alone in an apartment at [facility]. She states prior to admission she ambulates with a rollator for balance. She has a rollator and single
point cane at home. She has a prescription plan and uses [facility]. The discharge plan is to return home with res[facility] when medically stable.
[2024-08-21 11:34] VITALS: BP 153/72
[2024-08-21 11:36] VITALS: BP 158/77
--- NOTE | 2024-08-21 14:23 | PTCARENOTE ---
Pt at her baseline, seen by Jodee Miller, STACIA and . Telemetry and IV device removed. Discharge instructions reviewed with pt regarding medications (none new), activity guidelines, wound care and follow up appt's. Very good understanding
verbalized. Pt escorted out via wheelchair and discharged to [facility] with VN to see her.
== END 2024-08-21 13:50 | disposition home or self-care (01) ==
LOC: CATH 05:56
PROVIDERS: Nurse Practitioner Adult Health; ATTENDING PHYSICIAN Internal Medicine Cardiovascular Disease; CONSULT PHYSICIAN Psychiatry & Neurology Neurology; FAMILY PHYSICIAN Family Medicine; OTHER PHYSICIAN Internal Medicine Cardiovascular Disease
DX: I48.0 Paroxysmal atrial fibrillation (principal); H53.9 Unspecified visual disturbance; E78.5 Hyperlipidemia, unspecified; E11.9 Type 2 diabetes mellitus without complications; I12.9 Hypertensive chronic kidney disease with stage 1 through stage 4 chronic kidney disease, or unspecified chronic kidney disease; E11.22 Type 2 diabetes mellitus with diabetic chronic kidney disease; N18.32 Chronic kidney disease, stage 3b; Z79.01 Long term (current) use of anticoagulants; Z79.890 Hormone replacement therapy; H54.61 Unqualified visual loss, right eye, normal vision left eye; E03.9 Hypothyroidism, unspecified; M54.16 Radiculopathy, lumbar region; Z87.891 Personal history of nicotine dependence; H35.30 Unspecified macular degeneration; I45.10 Unspecified right bundle-branch block; I95.1 Orthostatic hypotension; I49.1 Atrial premature depolarization; K58.9 Irritable bowel syndrome, unspecified; M19.90 Unspecified osteoarthritis, unspecified site; Z85.828 Personal history of other malignant neoplasm of skin; Z88.0 Allergy status to penicillin; Z88.1 Allergy status to other antibiotic agents; Z88.2 Allergy status to sulfonamides; Z88.5 Allergy status to narcotic agent; Z88.8 Allergy status to other drugs, medicaments and biological substances; Z90.49 Acquired absence of other specified parts of digestive tract; Z90.710 Acquired absence of both cervix and uterus; Z90.722 Acquired absence of ovaries, bilateral; Z91.030 Bee allergy status; Z98.890 Other specified postprocedural states
CPT/HCPCS: C1732; C1894; C1769; C1730; C1892; 70450; 80048; 80061; 82962; 83735; 85027; 85347; 93005; 93656; 93657; C1733; C1760; C1766

== ENCOUNTER 2025-07-18 17:57 | Inpatient (IN) | payer MEDICARE, OTHER, SELFPAY ==
[2025-07-18] VITALS (9 sets, daily range): BP systolic 139–167; BP diastolic 69–121; BMI 25.0
[2025-07-18 12:48] LABS: Urine Character Clear (Clear)
[2025-07-18 12:49] LABS: Hematocrit 37.6 % (37.0-47.0); Hemoglobin 12.1 g/dL (12.0-16.0); Mean Corp Hgb Conc. 32.2 g/dL (33.0-37.0); Mean Corpuscular Volume 87.4 fL (81.0-99.0); Nucleated Red Blood Cells % 0 %; Platelet Count 267 10^3/uL (130-400); Red Cell Dist. Width 14.6 % (11.5-14.5)
[2025-07-18 12:56] LABS: ALT (SGPT) 10 U/L (0-35); AST (SGOT) 17 U/L (14-36); Albumin 4.4 g/dl (3.5-5.0); Alkaline Phosphatase 73 U/L (38-126); Blood Urea Nitrogen 19 mg/dl (7-17); Calcium 9.7 mg/dl (8.4-10.2); Carbon Dioxide 24 mmol/L (22-30); Chloride 107 mmol/L (98-107); Estimated Creatinine Clearance 34 ml/min; Glucose 131 mg/dl (70-99); Potassium 4.0 mmol/L (3.5-5.1); Sodium 139 mmol/L (135-145); Total Protein 8.0 g/dl (6.3-8.2); eGFR 49.24
--- NOTE | 2025-07-18 13:11 | ED.GENMED ---
History of Present Illness
<Cesar Seo PA-C - Last Filed: 07/18/25 16:55>
General
Chief Complaint: Generalized Pain
Source: patient
Exam Limitations: none
Time Seen by Provider: 07/18/25 12:48
History of Present Illness
History of Present Illness:
84-year-old female presents with generalized pain worse over her back but she also notes pain to the right large toe. She notes shakes and chills but no fever. She states she had sepsis last year and says she felt when she had sepsis last year.
No urinary symptoms or cough. No vomiting or diarrhea. No other complaints at this time
Past History
<Cesar Seo PA-C - Last Filed: 07/18/25 16:55>
Past History
ED Past Medical History: Arrthythmia (Atrial fib), Cancer (Ileum), HTN, NIDDM, Hypothyroidism, Psychiatric and Other (Diverticulitis)
ED Past Surgical History: Appendectomy, Bowel resection (Ileum removed for CA), Cholecystectomy, Gynecological (Hysterectomy) and Tonsilectomy
Social History
Tobacco: Former smoker
Alcohol: Occasional
Drug: None
Personal:
Living: assisted living
Employment: Retired
Family History
Family History: Other (Coronary artery disease, brother with pancreatic cancer, sister with CHF)
Phy Exam
<ALEXANDRIA Caruso Last Filed: 07/18/25 16:55>
Physical Exam
Physical Exam:
General: Well-appearing female no acute respiratory distress
HEENT normocephalic atraumatic heart: Regular rate and rhythm
Lungs: Clear no wheeze
Abdomen soft nontender nondistended
Extremities: No cyanosis or edema
Skin warm with no rash
Course
<ALEXANDRIA Caruso Last Filed: 07/18/25 16:55>
Orders/Labs/Results
Orders:
Orders
07/18/25 12:32
Complete Blood Count/With Diff Urgent
Comprehensive Metabolic Panel Urgent
Urinalysis Reflex To Culture Urgent
Date Specimen was Collected: 07/18/25
Time Specimen was Collected: 12:31
Urine Microscopic Reflex Cult Urgent
Urine Culture Urgent
FAWAD Source: U
Specimen Description:
Date Specimen was Collected: 07/18/25
Time Specimen was Collected: 12:31
07/18/25 13:04
CR Chest - 2 Views Urgent
Comment:
Reason For Exam: fatigue
07/18/25 13:05
Oxycodone [Roxicodone] 10 mg PO NOW STA
07/18/25 13:27
COVID-19 Antigen Urgent
Source: Nasal Swab
CPK [Creatine Phosphokinase] Urgent
CRP [C-Reactive Protein] Urgent
Sed Rate [Erythrocyte Sed Rate] Urgent
Influenza A+B Rapid Molecular Urgent
FAWAD Source: Nasal Swab
Specimen Description:
07/18/25 14:35
CR Lumbar Spine 2 Or 3 Views Urgent
Comment:
Reason For Exam: back pain
07/18/25 16:59
Admit/Transfer Patient As Directed
Co-Sign Provider:
Level of Care: Inpatient admission
Assign to:: Medical/Surgical
Physician / Group: Hospitalist
Diagnosis: Back pain
Reason for Hospitalization: .
Expected length of stay greater than two midnights?: Yes
ELOS- Estimated Length of Stay in days: 3
I certify the patient meets the requirements for IP care: Yes
PRN Pain Medication Management As Directed
May give lesser potent ordered pain med per pt: Yes
preference::
Protocol:: Medication orders for pain may be administered in a
manner that supports deferring to patient preference
when the pt is:
- Requesting an ordered lesser potent pain medication.
Least to most potent pain medications are defined
as: acetaminophen < NSAID < tramadol < opioids
(morphine, oxycodone, hydromorphone).
- Requesting a lesser dose of the same medication IF
ORDERED.
- Requesting a less intrusive route of administration
if both routes are prescribed by the provider (PO <
IV).
07/18/25 17:03
Blood Culture Routine
FAWAD Source: Blood/Venous
Specimen Description:
Abnormal Lab Results
07/18/25 07/18/25
12:32 13:27
WBC 11.4 H 10^3/uL
(4.8-10.8)
MCHC 32.2 L g/dL
(33.0-37.0)
RDW 14.6 H %
(11.5-14.5)
Absolute Neuts (auto) 7.2 H 10^3/uL
(1.4-6.5)
Absolute Monos (auto) 1.4 H 10^3/uL
(0.1-0.6)
Monocytes % 12.2 H %
(1.7-9.3)
ESR 60 H mm/hour
(0-20)
BUN 19 H mg/dl
(7-17)
Creatinine 1.1 H mg/dL
(0.6-1.0)
Glucose 131 H mg/dl
(70-99)
Total Bilirubin 1.7 H mg/dl
(0.2-1.3)
C-Reactive Protein 38.10 H mg/L
(0.0-10.00)
Leukocyte Esterase Rfl 2+ A
(Negative)
Urine Albumin (Reflex) 1+ A
(Neg - Trace)
07/18/25 12:32
07/18/25 12:32
Vital Signs
Initial and Last Documented VS:
Initial Vital Signs
Temp Pulse Resp Pulse Ox
98.2 F 72 20 100
07/18/25 12:24 07/18/25 12:24 07/18/25 12:24 07/18/25 12:24
Last Documented Vital Signs
Temp Pulse Resp BP Pulse Ox
98.2 F 79 16 162/80 93
07/18/25 12:24 07/18/25 16:00 07/18/25 16:00 07/18/25 16:00 07/18/25 16:00
<Bam Arzate MD - Last Filed: 07/18/25 17:21>
Orders/Labs/Results
Orders:
Orders
07/18/25 12:32
Complete Blood Count/With Diff Urgent
Comprehensive Metabolic Panel Urgent
Urinalysis Reflex To Culture Urgent
Date Specimen was Collected: 07/18/25
Time Specimen was Collected: 12:31
Urine Microscopic Reflex Cult Urgent
Urine Culture Urgent
FAWAD Source: U
Specimen Description:
Date Specimen was Collected: 07/18/25
Time Specimen was Collected: 12:31
07/18/25 13:04
CR Chest - 2 Views Urgent
Comment:
Reason For Exam: fatigue
07/18/25 13:05
Oxycodone [Roxicodone] 10 mg PO NOW STA
07/18/25 13:27
COVID-19 Antigen Urgent
Source: Nasal Swab
CPK [Creatine Phosphokinase] Urgent
CRP [C-Reactive Protein] Urgent
Sed Rate [Erythrocyte Sed Rate] Urgent
Influenza A+B Rapid Molecular Urgent
FAWAD Source: Nasal Swab
Specimen Description:
07/18/25 14:35
CR Lumbar Spine 2 Or 3 Views Urgent
Comment:
Reason For Exam: back pain
07/18/25 16:59
Admit/Transfer Patient As Directed
Co-Sign Provider:
Level of Care: Inpatient admission
Assign to:: Medical/Surgical
Physician / Group: Hospitalist
Diagnosis: Back pain
Reason for Hospitalization: .
Expected length of stay greater than two midnights?: Yes
ELOS- Estimated Length of Stay in days: 3
I certify the patient meets the requirements for IP care: Yes
PRN Pain Medication Management As Directed
May give lesser potent ordered pain med per pt: Yes
preference::
Protocol:: Medication orders for pain may be administered in a
manner that supports deferring to patient preference
when the pt is:
- Requesting an ordered lesser potent pain medication.
Least to most potent pain medications are defined
as: acetaminophen < NSAID < tramadol < opioids
(morphine, oxycodone, hydromorphone).
- Requesting a lesser dose of the same medication IF
ORDERED.
- Requesting a less intrusive route of administration
if both routes are prescribed by the provider (PO <
IV).
07/18/25 17:03
Blood Culture Routine
FAWAD Source: Blood/Venous
Specimen Description:
Abnormal Lab Results
07/18/25 07/18/25
12:32 13:27
WBC 11.4 H 10^3/uL
(4.8-10.8)
MCHC 32.2 L g/dL
(33.0-37.0)
RDW 14.6 H %
(11.5-14.5)
Absolute Neuts (auto) 7.2 H 10^3/uL
(1.4-6.5)
Absolute Monos (auto) 1.4 H 10^3/uL
(0.1-0.6)
Monocytes % 12.2 H %
(1.7-9.3)
ESR 60 H mm/hour
(0-20)
BUN 19 H mg/dl
(7-17)
Creatinine 1.1 H mg/dL
(0.6-1.0)
Glucose 131 H mg/dl
(70-99)
Total Bilirubin 1.7 H mg/dl
(0.2-1.3)
C-Reactive Protein 38.10 H mg/L
(0.0-10.00)
Leukocyte Esterase Rfl 2+ A
(Negative)
Urine Albumin (Reflex) 1+ A
(Neg - Trace)
07/18/25 12:32
07/18/25 12:32
Vital Signs
Initial and Last Documented VS:
Initial Vital Signs
Temp Pulse Resp Pulse Ox
98.2 F 72 20 100
07/18/25 12:24 07/18/25 12:24 07/18/25 12:24 07/18/25 12:24
Last Documented Vital Signs
Temp Pulse Resp BP Pulse Ox
98.2 F 79 16 162/80 93
07/18/25 12:24 07/18/25 16:00 07/18/25 16:00 07/18/25 16:00 07/18/25 16:00
<Cesar Seo PA-C - Last Filed: 07/18/25 16:55>
MDM/Problems Addressed
Differential Diagnosis Includes:
Generalized pain. Consider inflammatory process versus infectious process. No obvious rash on the skin. The right large toe is minimally swollen but no erythema but is tender. She is tender pretty diffusely throughout the exam will check labs
and inflammatory markers. X-rays of the chest and lumbar spine ordered discussed with emergency room attending
<Cesar Seo PA-C - Last Filed: 07/18/25 16:55>
*Pulse Oximetry
SaO2: 100
Oxygen Mode of Delivery: Room air
Patient hypoxic: no
*Critical Care Note
Total Time (30-74mins, 75-104mins- exclusive of procedures): Not Applicable
<Cesar Seo PA-C - Last Filed: 07/18/25 16:55>
Update Note
Update Note:
Chest x-ray lumbar spine x-ray negative sed rate 60 CRP is mildly elevated. White blood cell count is 11.4. Urinalysis without infection COVID-negative. Patient describes rigors. We have blood cultures pending. Consider possible bacteremia.
Will admit for back pain and rigors
ED Attending Note
<Cesar Seo PA-C - Last Filed: 07/18/25 16:55>
-
Portions of this chart may have been created with voice recognition software.� Occasional wrong word or��sound alike� substitutions may have occurred due to the inherent limitations of voice recognition software.
<Bam Arzate MD - Last Filed: 07/18/25 17:21>
ED Attending Note
Patient seen and examined by attending physician: Yes
I performed the substantive portion of visit, reviewed & personally made and approve the management plan that is documented in note by myself or FRANCHESKA.: Yes
ED Attending Note:
84-year-old female presents with days of tremors chills rigors back pain. Back pain is positional in nature. She states this is similar to how she presented previously when she was septic. Denies other urinary symptoms.
On exam patient is nontoxic. She does have occasional nonlocalizing tremors and some mild chills. She has increased back pain with sitting up although no focal tenderness swelling or warmth. No CVA tenderness. Heart regular rate and rhythm no
murmur. Lungs clear and equal. Abdomen nontender. She is warm and dry and perfusing well.
Previous records reviewed. Previous labs reviewed.
Leukocytosis rigors back pain. Elevated ESR and CRP. Acutely neurologically intact. Would have to consider a spinal issue although not a neurosurgical emergency at this time. Chest x-ray and lumbar spine pending. Admit for further care
Discharge Plan
Departure
Patient Disposition: Admit
Date of Disposition: 07/18/25
Time of Disposition: 16:54
Presentation/result/management discussed w/ accepting MD/DO: Hospitalist
Discharge Problem:
Rigors
Prescriptions:
No Action
cholecalciferol (vitamin D3) 2,000 UNITS tablet
2,000 units PO DAILY
PreserVision AREDS-2 1 EACH capsule
1 ea PO BID
cyanocobalamin (vitamin B-12) 1,000 mcg Tablet
1,000 mcg PO DAILY
levothyroxine 75 mcg Tablet
75 mcg PO QPM
valsartan 160 mg Tablet
160 mg PO HS
pantoprazole 40 mg Tablet,Delayed Release (Dr/Ec)
40 mg PO DAILY Qty: 30 0RF
Referrals:
Jossy Prajapati NP [Family Provider, Family Practice]
Interventions
Interventions:
*Risk Screen - Suicide Last Done: 07/18/25 12:24
*General Assessment Last Done: 07/18/25 12:24
*Neglect/Abuse Screening Last Done: 07/18/25 12:24
*ED COVID-19 Vaccine History Last Done: 07/18/25 14:32
*ED Influenza Vaccine History Last Done: 07/18/25 14:32
Discharge Date and Time
Print Language: FAROESE
[2025-07-18 13:53] LABS: Urine Squamous Cell >30 /LPF (Few); Urine Urothelial Cell 0-2 /LPF (FEW)
[2025-07-18 13:54] LABS: Urine Red Blood Cell 0-2 /HPF (0-2)
[2025-07-18 13:56] LABS: C-Reactive Protein 38.10 mg/L (0.0-10.00)
[2025-07-18 13:57] LABS: COVID-19 Antigen Negative (Negative)
--- NOTE | 2025-07-18 17:24 | HPS.HSE ---
Family Physician
-
Family Physician: Jossy Prajapati
Chief Complaint
-
Body aches with confusion for 1 to 2 days duration
History of Present Illness
84 years old female came from [facility]. History provided by patient. She is lucid and fully oriented. Patient reported that she could not sleep last night due to aches and pains with chills. No documented fever. Most pain right hip and
lower back but diffuse aches overall. She was taking Tylenol but was worried about side effects. She also reported confusion although she seemed fully oriented and providing history. She reported episode of forgetting where she was last 2 days.
She called her [facility] nurse and they decided to call the ambulance. In the ER, she had mild leukocytosis but no fever. She denied cough, chest pain, abdominal pain. She denied dysuria.
Medical History
Past Medical History
Past Medical History: Reports Other (Osteoarthritis, pseudogout, vertigo, hypertension, hypothyroidism, right bundle branch block, paroxysmal atrial fibrillation, controlled type 2 diabetes.)
Past Surgical History: Reports Other (No recent major surgery)
Social History
Tobacco: Non-smoker
Alcohol: None
Drug: None
Personal: Single
Living: Assisted Living
Employment: Retired
Family History
Family History: Other (History of heart disease in the family)
Allergies / Home Medications
Allergies reflects when Allergies were last updated in [email or web address].
Home Medications with original date entered in [email or web address]
Allergy/Medication List:
Allergies
Allergy/AdvReac Type Severity Reaction Status Date / Time
allopurinol (Allopurinol) Allergy Rash,itchy Verified 07/18/25 12:30
azithromycin Allergy difficulty Verified 07/18/25 12:30
swelling;thick
tongue
bee pollen Allergy Anaphylaxis Verified 07/18/25 12:30
bee venom protein (honey bee) Allergy Anaphylaxis Verified 07/18/25 12:30
codeine Allergy hallucinati Verified 07/18/25 12:30
on
diphenhydramine HCl (From Allergy irregular Verified 07/18/25 12:30
Benadryl) heart beat
hornet venom Allergy Anaphylaxis Verified 07/18/25 12:30
latex (Latex) Allergy Rash,itchin Verified 07/18/25 12:30
g
lecithin, soy Allergy Hives Verified 07/18/25 12:30
metronidazole (From Flagyl) Allergy N&V,irregular Verified 07/18/25 12:30
heart beat
Penicillins Allergy Anaphylaxis Verified 07/18/25 12:30
Shellfish *RETIRED-07/01/12 Allergy Hives Verified 07/18/25 12:30
(Shellfish)
soy Allergy Hives Verified 07/18/25 12:30
Jpjcljt-[id number]-AaA Reductase Allergy Rash Verified 07/18/25 12:30
Inhibitor (Qhahgup-Ggv-Ahs
Reductase Inhibitor)
Sulfa (Sulfonamide Allergy Rash Verified 07/18/25 12:30
Antibiotics)
sulfasalazine Allergy Rash Verified 07/18/25 12:30
tetracycline (Tetracycline) Allergy Pharmacy Verified 07/18/25 12:30
to Review
tuberculin, purified protein Allergy arm Verified 07/18/25 12:30
deriva swelling
vancomycin Allergy thick Verified 07/18/25 12:30
tongue,difficulty
swallowing
artificial coloring Allergy Mild Rash Uncoded 07/18/25 12:30
opiods Allergy manic Uncoded 07/18/25 12:30
state,loss
of
inhibitions
Home Medications
cholecalciferol (vitamin D3) 50 mcg (2,000 unit) tablet 2,000 units PO DAILY Supplement 12/19/21
vit C 250 mg-vit E 90 mg-zinc 40 mg-copper 1 [id number] capsule (PreserVision AREDS-2) 1 ea PO BID Supplement 01/22/22
cyanocobalamin (vitamin B-12) 1,000 mcg tablet 1,000 mcg PO DAILY Supplement 07/13/24
levothyroxine 75 mcg tablet 75 mcg PO QPM Thyroid 07/13/24
valsartan 160 mg tablet 160 mg PO HS Blood Pressure 07/13/24
pantoprazole 40 mg tablet,delayed release 40 mg PO DAILY #30 tabs 07/19/24
Review of Systems
-
History Source: Patient
A 12 point ROS was completed and negative except as noted: Yes
Constitutional: Reports Chills; Denies Fever
EENT: Denies Sore Throat
Respiratory: Denies Trouble Breathing
Cardiac: Denies Chest Pain
Abdomen/GI: Denies Abdominal Pain or Diarrhea
: Denies Dysuria
Musculoskeletal: Reports Joint Pain and Muscle Pain
Neurological: Denies Numbness
Hematologic/Lymphatic: Denies Bruising
Psych: Denies Panic Disorder
Physical Exam
Vital Signs
Vital Signs
Temp Pulse Resp BP Pulse Ox
98.2 F 79 16 162/80 93
07/18/25 12:24 07/18/25 16:00 07/18/25 16:00 07/18/25 16:00 07/18/25 16:00
Physical Exam
General: No Apparent Distress, Comfortable and Conversant
HEENT: Anicteric and Atraumatic
Respiratory: Clear
Cardiac: S1/S2 and Regular Rhythm
GI: Soft, Non Tender and Non Distended
Genito-urinary: No costovertebral tender; No Rush
Musculoskeletal: No Cyanosis, No Edema and Other (She reported acute on chronic right hip tenderness on moving)
Skin: No Jaundice
Neuro: AO x 3 and Nonfocal/grossly intact
Psych: Calm and Intact Judgment/Insight; No Confused
Laboratory Results
-
07/18/25 12:32
07/18/25 12:32
Laboratory Results
Total Bilirubin 1.7 mg/dl (0.2-1.3) H 07/18/25 12:32
AST 17 U/L (14-36) 07/18/25 12:32
ALT 10 U/L (0-35) 07/18/25 12:32
Alkaline Phosphatase 73 U/L (38-126) 07/18/25 12:32
Impression/Plan
-
84 years old female presented with history of chills, pain and inability to sleep
# Generalized aches/pain, right hip pain, low back pain, right base of toe tenderness/pain
Polyradiculopathy with no signs of joint swelling or erythema in specific joint
Admit the patient to the hospital
Differential diagnosis include pseudogout flareup/infectious source. Patient reported her symptoms were consistent with prior history of sepsis she had before. Reviewed chart, Patient was seen by ID and had right wrist erythema and was unclear if
crystal deposition/cellulitis and she responded to steroid and Keflex.
Mild leukocytosis. No fever.
Elevated inflammatory marker
Suspicious for pseudogout flareup but cannot rule infections
Will do blood culture. Will do urine culture
Negative COVID and influenza. She denied sore throat/runny nose
Urine is positive for bacteria but not suggestive of significant UTI and patient denied urinary symptoms
Will give 1 dose of steroid to help with aches, avoid opioid medication if possible. Will give Tylenol.
Will give empiric Rocephin after drawing blood culture for possible UTI until proven otherwise we will culture
Will give mild IV fluid as patient has not slept and seems to have dry mucous membranes
No history of diarrhea. No abdominal tenderness on exam. No hypoxia or cough. Chest x-ray no evidence of acute infiltration.
# Patient reported subjective confusion. Patient seems very alert and fully oriented. She was able to provide detailed history.
Will monitor mental status for now. She denied focal neurologic deficit. Right hip is mostly painful with low back pain.
# History of paroxysmal A-fib status post ablation. She is not on aspirin or Eliquis.
Will continue medications from home.
# Essential hypertension, elevated blood pressure mostly related to her discomfort. She seemed a little bit anxious.
# Hypothyroidism
# Renal insufficiency, consistent with CKD 3A. Seems stable at baseline.
# DVT prophylaxis with subcu heparin
# CODE STATUS, DNR, confirmed with patient.
Total time spent to see the patient, examine the patient, review data and lab result, discuss treatment plan with patient, ER Doctor, nursing staff around 75 minutes
--- NOTE | 2025-07-18 18:01 | EDCM ---
CM reviewed chart and met with pt bedside in ED. Lives alone in [place] apartment at [facility].
Independent in ADLs, personal care and ambulation at baseline, no assistive devices.
Confirms prescription coverage.
Hx [facility] last year, No hx SNF, hx OP PT at [facility]
PCP: Jossy Page
Pharmacy: [facility]
Anticipate discharge home, CM will continue to follow for all discharge planning needs.
[2025-07-18] MEDS: NSS 1000 IV (21:07)
[2025-07-18] MEDS: HEPARIN 5000 UNITS SC (21:08)
[2025-07-18] MEDS: ROCEPHIN 1000 MG IV (21:08)
[2025-07-18] MEDS: STERILE WATER FOR INJECTION 10 ML IV (21:08)
[2025-07-18] MEDS: DIOVAN 160 MG PO (21:09)
[2025-07-18] MEDS: ZOFRAN 4 MG IV (21:09)
[2025-07-18] MEDS: SOLU-MEDROL PF 40 MG IV (21:39)
[2025-07-18] MEDS: ANTIVERT 25 MG PO (23:47)
[2025-07-19] MEDS: NSS (PRESERVATIVE FREE) 10 ML IV (00:45)
[2025-07-19] MEDS: PROTONIX IV 40 MG IV (00:45)
[2025-07-19 03:00] VITALS: BP 142/81
--- NOTE | 2025-07-19 05:25 | PTCARENOTE ---
Late note due to patient care:
Pt transferred to unit at 1900. Pt oriented to the room. call cooper and belongings within reach. bed in the lowest position.
2100: pt has rigors. Tylenol refused due to concern for allergic s/s on previous use this past week. reports of formation of bumps and resulting scabbing. c/o nausea treated with Zofran at this time. rigors resolved. temp 99.0 oral.
0015: pt c/o nausea, dizziness, L scapular/back pain, cold sweats, and L arm tingling. EKG completed. provider contact. rectal temp obtained. Medication ordered entered and administer.
[2025-07-19] MEDS: SYNTHROID 75 MCG PO (06:22)
[2025-07-19 06:34] LABS: Hematocrit 34.4 % (37.0-47.0); Hemoglobin 11.1 g/dL (12.0-16.0); Mean Corp Hgb Conc. 32.3 g/dL (33.0-37.0); Mean Corpuscular Volume 87.3 fL (81.0-99.0); Platelet Count 246 10^3/uL (130-400); Red Cell Dist. Width 14.1 % (11.5-14.5)
[2025-07-19 07:00] VITALS: BP 151/79
[2025-07-19 07:00] LABS: ALT (SGPT) < 10 U/L (0-35); AST (SGOT) 16 U/L (14-36); Albumin 3.8 g/dl (3.5-5.0); Alkaline Phosphatase 68 U/L (38-126); Blood Urea Nitrogen 22 mg/dl (7-17); Calcium 8.8 mg/dl (8.4-10.2); Carbon Dioxide 22 mmol/L (22-30); Chloride 109 mmol/L (98-107); Estimated Creatinine Clearance 37 ml/min; Glucose 212 mg/dl (70-99); Potassium 4.3 mmol/L (3.5-5.1); Sodium 138 mmol/L (135-145); Total Protein 7.0 g/dl (6.3-8.2); eGFR 55.21
[2025-07-19] MEDS: VITAMIN D3 (cholecalciferol) 50 MCG PO (08:01)
[2025-07-19] MEDS: PROTONIX 40 MG PO (08:01)
[2025-07-19] MEDS: HEPARIN 5000 UNITS SC ×2 (08:01→20:41)
[2025-07-19] MEDS: VITAMIN B-12 1000 MCG PO (08:01)
[2025-07-19 09:52] VITALS: BP 115/77; PULSE 89; O2SAT 94
[2025-07-19] MEDS: NSS 1000 IV (11:58)
--- NOTE | 2025-07-19 14:56 | W.PN.HOSP.TC ---
Today's Communication/Plan
-
await blood cultures
d/c IVF
anticipate d/c in AM
Assessment / Plan
Assessment / Plan
pt is an 84 year old female
Generalized aches/pain, right hip pain, low back pain, right base of toe tenderness/pain--Polyradiculopathy with no signs of joint swelling or erythema in specific joint--etiologies were pseudogout flare vs infectious source--symptoms c/w sepsis
that she has had before--covid/flu negative--ESR 60 CRP 38--urine culture negative--blood culture pending--s/p 1 dose of methylprednisolone--can stop IVF--pt was c/o of diarrhea--since resolved--possible viral illness/gastroenteritis?
Patient reported subjective confusion. Patient seems very alert and fully oriented. She was able to provide detailed history--Will monitor mental status for now. She denied focal neurologic deficit. Right hip is mostly painful with low back
pain--relieved with steroids
History of paroxysmal A-fib status post ablation. She is not on aspirin or Eliquis.
Essential hypertension, elevated blood pressure mostly related to her discomfort
Hypothyroidism--cont levothyroxine
Renal insufficiency, consistent with CKD 3A. Seems stable at baseline.
DVT proph-- with subcu heparin
CODE STATUS-- DNR
Anticipated Discharge: Within 24 hours
Subjective/Interval History
-
Date of Service: July 19, 2025
pt feels much better today
Objective Data
-
Labs:
Laboratory Results
07/19/25
06:18
WBC 9.0
Hgb 11.1 L
Hct 34.4 L
Plt Count 246
Sodium 138
Potassium 4.3
Chloride 109 H
Carbon Dioxide 22
BUN 22 H
Creatinine 1.0
Glucose 212 H
Calcium 8.8
Total Bilirubin 1.1
AST 16
ALT < 10
Alkaline Phosphatase 68
Vital Signs:
max temp for 24 hours
07/19/25
00:22
Temp 100.3 F
Vital Signs
Temp Pulse Resp BP Pulse Ox
98.4 F 66 16 151/79 98
07/19/25 07:00 07/19/25 07:00 07/19/25 07:00 07/19/25 07:00 07/19/25 09:21
Review of Systems
-
All other systems: Reviewed and negative
Physical Exam
-
General: Well Developed, Well Nourished and No Apparent Distress
HEENT: Normocephalic and Atraumatic
Respiratory: Clear to Auscultation; Negative Wheezes or Rhonchi
Cardiac: Regular Rhythm and S1/S2; Negative Murmur
GI: Soft, Nontender, Nondistended and Normal Bowel Sounds
Musculoskeletal: No Clubbing, No Cyanosis and No Edema
Skin: Warm
Neuro: Awake
Psych: Calm
[2025-07-19 15:00] VITALS: BP 143/77
[2025-07-19] MEDS: ROCEPHIN 1000 MG IV (20:41)
[2025-07-19] MEDS: STERILE WATER FOR INJECTION 10 ML IV (20:41)
[2025-07-19] MEDS: DIOVAN 160 MG PO (20:50)
[2025-07-19 21:28] LABS: Glucose - Point of Care 175 mg/dl (70-99)
[2025-07-19 23:00] VITALS: BP 133/69
[2025-07-20] VITALS (11 sets, daily range): BP systolic 99–155; BP diastolic 64–91
--- NOTE | 2025-07-20 00:33 | PTCARENOTE ---
L forearm IV with clinical signs of phlebitis (erythema at site, pain when flushed with NS). Old IV removed. New #22 gauge IV placed in pt R hand with RN Luke Reyes to observe. Documented under peripheral line access.
[2025-07-20] MEDS: SYNTHROID 75 MCG PO (05:12)
[2025-07-20 05:59] LABS: Hematocrit 33.4 % (37.0-47.0); Hemoglobin 10.8 g/dL (12.0-16.0); Mean Corp Hgb Conc. 32.3 g/dL (33.0-37.0); Mean Corpuscular Volume 90.0 fL (81.0-99.0); Platelet Count 285 10^3/uL (130-400); Red Cell Dist. Width 14.4 % (11.5-14.5)
[2025-07-20 06:25] LABS: ALT (SGPT) 10 U/L (0-35); AST (SGOT) 16 U/L (14-36); Albumin 3.9 g/dl (3.5-5.0); Alkaline Phosphatase 63 U/L (38-126); Blood Urea Nitrogen 35 mg/dl (7-17); Calcium 8.9 mg/dl (8.4-10.2); Carbon Dioxide 23 mmol/L (22-30); Estimated Creatinine Clearance 31 ml/min; Glucose 140 mg/dl (70-99); Magnesium 2.1 mg/dl (1.6-2.3); Potassium 4.1 mmol/L (3.5-5.1); Sodium 141 mmol/L (135-145); Total Protein 7.0 g/dl (6.3-8.2); eGFR 44.36
[2025-07-20 06:27] LABS: C-Reactive Protein 49.80 mg/L (0.0-10.00)
[2025-07-20 06:31] LABS: Chloride 109 mmol/L (98-107)
[2025-07-20] MEDS: VITAMIN D3 (cholecalciferol) 50 MCG PO (07:55)
[2025-07-20] MEDS: PROTONIX 40 MG PO (07:55)
[2025-07-20] MEDS: HEPARIN 5000 UNITS SC ×2 (07:55→21:10)
[2025-07-20] MEDS: VITAMIN B-12 1000 MCG PO (07:55)
--- NOTE | 2025-07-20 09:17 | CM ---
Addendum entered by Ele Cardona 07/20/25 09:43:
Plan for assessment/consult with Vascular physician per hospitalist.
Original Note:
Patient seen at bedside on today with physician. Patient completed IMM and signed form placed on chart. Patient possible for discharge home pending physician assessment. Patient possible for transport with [facility] transport, follow
up with PCP at facility. CM will continue to follow for discharge planning needs.
Plan; home with follow up with PCP
--- NOTE | 2025-07-20 09:40 | W.PN.HOSP.TC ---
Today's Communication/Plan
-
hold on d/c
consult vascular
Assessment / Plan
Assessment / Plan
pt is an 84 year old female
Generalized aches/pain, right hip pain, low back pain, right base of toe tenderness/pain--Polyradiculopathy with no signs of joint swelling or erythema in specific joint--etiologies were pseudogout flare vs infectious source VS GCA? ESR increased
from 60 to 80 WITH 1 dose of steroids, CRP also increased from 38 to 49--consult vascular surgery for possible temporal artery biopsy--covid/flu negative, cultures negative---s/p 1 dose of methylprednisolone--can stop IVF--pt was c/o of
diarrhea--since resolved--possible viral illness/gastroenteritis?
Patient reported subjective confusion. Patient seems very alert and fully oriented. She was able to provide detailed history--Will monitor mental status for now. She denied focal neurologic deficit. Right hip is mostly painful with low back
pain--relieved with steroids
History of paroxysmal A-fib status post ablation. She is not on aspirin or Eliquis.
Essential hypertension, elevated blood pressure mostly related to her discomfort
Hypothyroidism--cont levothyroxine
Renal insufficiency, consistent with CKD 3A. Seems stable at baseline.
DVT proph-- with subcu heparin
CODE STATUS-- DNR
Anticipated Discharge: 24 - 48 hours
Subjective/Interval History
-
Date of Service: July 20, 2025
pt feels better
Objective Data
-
Labs:
Laboratory Results
07/20/25
05:24
WBC 13.8 H
Hgb 10.8 L
Hct 33.4 L
Plt Count 285
Sodium 141
Potassium 4.1
Chloride 109 H
Carbon Dioxide 23
BUN 35 H
Creatinine 1.2 H
Glucose 140 H
Calcium 8.9
Total Bilirubin 0.6
AST 16
ALT 10
Alkaline Phosphatase 63
Vital Signs:
max temp for 24 hours
07/19/25
23:00
Temp 98.2 F
Vital Signs
Temp Pulse Resp BP Pulse Ox
97.7 F 68 18 144/64 98
07/20/25 07:00 07/20/25 07:00 07/20/25 07:00 07/20/25 07:00 07/20/25 07:00
I&O
07/19/25 07/20/25 07/21/25
06:59 06:59 06:59
Intake Total 1200 / 1200
Balance 1200 / 1200
Review of Systems
-
All other systems: Reviewed and negative
Physical Exam
-
General: Well Developed, Well Nourished and No Apparent Distress
HEENT: Normocephalic, Atraumatic and Other (NO temporal artery tenderness to palpation bilaterally)
Respiratory: Clear to Auscultation; Negative Wheezes or Rhonchi
Cardiac: Regular Rhythm and S1/S2; Negative Murmur
GI: Soft, Nontender, Nondistended and Normal Bowel Sounds
Musculoskeletal: No Clubbing, No Cyanosis and No Edema
Skin: Warm
Neuro: Awake
[2025-07-20] MEDS: DELTASONE 60 MG PO (11:09)
--- NOTE | 2025-07-20 11:17 | CON.VAS ---
Addendum entered and electronically signed by Daniel Rush III, MD 07/20/25 13:28:
This patient was seen and examined in collaboration with JEEVAN Walsh. I agree with the history and physical exam as well as the assessment and plan. I have the following additions:
Asked to see patient for temporal artery biopsy
85-year-old female (birthday [birth year])
No history of rheumatologic conditions
1 month history of diffuse itchy rash, now resolved.
More recent history of rigors and myalgias
Denies temporal pain/tenderness
Denies headaches
Denies jaw claudication
Myalgias have since resolved
Denies recent vision changes
Denies weight loss
Denies night sweats
ESR 80 mm/hr
CRP 49.80 mg/L
All cultures have all been negative to date
On physical exam she is well-appearing and in no acute distress
Palpable temporal pulses bilaterally with no tenderness bilaterally
no jaw tenderness bilaterally
I explained that her age, gender, elevated inflammatory markers, duration of current symptoms and presence of myalgias in the absence of a clear alternative diagnosis have raised the suspicious for giant cell arteritis. I calculated her [facility] GCA
probability score to be 13 (high risk category).
Explained that temporal artery biopsy would be indicated to evaluate for the presence of this diagnosis (GCA). The technical aspects of this procedure were discussed with her in detail. The benefits and rationale for this approach were discussed
with her in detail. Operative risks were discussed with her in detail including but not limited to bleeding, infection, wound healing complications. We also discussed the possibility of a negative biopsy result. The alternative strategy would be
to have her evaluated urgently on an outpatient basis by rheumatology (they do not perform inpatient consultations) but if they felt she needed a biopsy then this may delay the procedure.
She expressed a clear understanding of her conversation and agrees to proceed with surgery/biopsy as detailed above.
Signed:
Daniel Rush III, MD
Vascular Surgery
[facility]
Original Note:
Consultation
Consultation Request
Date/Time Consultation Performed: 07/20/25 1115
Requesting Provider: Hospitalist
Performing Provider: JOANA Singh for Daniel Rush III, MD
Reason for Consultation: Need for temporal artery biopsy
Medical History
-
Chief Complaint: Myalgia
History of Present Illness:
This is an 84-year-old female with significant past medical history for osteoarthritis, gout, vertigo, hypertension, hypothyroidism, right bundle branch block, atrial fibrillation, and diabetes who presented to [facility] on 07/18/2025
reporting roughly 1 to 2 days of generalized myalgia particularly right hip and lower back pain with accompanying confusion. Patient endorses roughly a month ago starting with itchy plaques throughout her body saw engineering instructor who prescribed a
cream most of now been resolved except for 1; and then roughly 1 to 2 days ago she began having rigors, generalized myalgia, and confusion which eventually led for her to seek ED evaluation yesterday. She notes she now feels fine and at baseline,
and she expected to be discharged. However, her inflammatory markers resulted as increased this a.m., hospitalist is now considering differential of giant cell arteritis leading to vascular surgery consultation for temporal artery biopsy. She
suspected initially that she was in sepsis as roughly a year ago she had similar symptomatology except for the rash and was found to be in sepsis with gout. Denies headache, temporal artery pain, and acute vision changes or loss.
Past Medical History
Past Medical History: Other (osteoarthritis, gout, vertigo, hypertension, hypothyroidism, right bundle branch block, atrial fibrillation, and diabetes)
Past Surgical History: Cardiac (Ablation)
Social History
Tobacco: Non-Smoker
Alcohol: None
Drug: None
Living: Assisted Living
Employment: Retired
Allergies / Home Medications
Allergy/AdvReac Type Severity Reaction Status Date / Time
allopurinol (Allopurinol) Allergy Rash,itchy Verified 07/18/25 12:30
azithromycin Allergy difficulty Verified 07/18/25 12:30
swelling;thick
tongue
bee pollen Allergy Anaphylaxis Verified 07/18/25 12:30
bee venom protein (honey bee) Allergy Anaphylaxis Verified 07/18/25 12:30
codeine Allergy hallucinati Verified 07/18/25 12:30
on
diphenhydramine HCl (From Allergy irregular Verified 07/18/25 12:30
Benadryl) heart beat
hornet venom Allergy Anaphylaxis Verified 07/18/25 12:30
latex (Latex) Allergy Rash,itchin Verified 07/18/25 12:30
g
lecithin, soy Allergy Hives Verified 07/18/25 12:30
metronidazole (From Flagyl) Allergy N&V,irregular Verified 07/18/25 12:30
heart beat
Penicillins Allergy Anaphylaxis Verified 07/18/25 12:30
Shellfish *RETIRED-07/01/12 Allergy Hives Verified 07/18/25 12:30
(Shellfish)
soy Allergy Hives Verified 07/18/25 12:30
Pjwnlny-XGY-QnC Reductase Allergy Rash Verified 07/18/25 12:30
Inhibitor (Rdhmhlv-Pvz-Ova
Reductase Inhibitor)
Sulfa (Sulfonamide Allergy Rash Verified 07/18/25 12:30
Antibiotics)
sulfasalazine Allergy Rash Verified 07/18/25 12:30
tetracycline (Tetracycline) Allergy Pharmacy Verified 07/18/25 12:30
to Review
tuberculin, purified protein Allergy arm Verified 07/18/25 12:30
deriva swelling
vancomycin Allergy thick Verified 07/18/25 12:30
tongue,difficulty
swallowing
artificial coloring Allergy Mild Rash Uncoded 07/18/25 12:30
opiods Allergy manic Uncoded 07/18/25 12:30
state,loss
of
inhibitions
�Medication �Instructions �Recorded �Confirmed �Type
cholecalciferol (vitamin D3) 50 2,000 units PO DAILY Supplement 12/19/21 07/18/25 History
mcg (2,000 unit) tablet
vit C 250 mg-vit E 90 mg-zinc 40 1 ea PO BID Supplement 01/22/22 07/18/25 History
mg-copper 1 [id number]
capsule (PreserVision AREDS-2)
cyanocobalamin (vitamin B-12) 1,000 mcg PO DAILY Supplement 07/13/24 07/18/25 History
1,000 mcg tablet
levothyroxine 75 mcg tablet 75 mcg PO QPM Thyroid 07/13/24 07/18/25 History
valsartan 160 mg tablet 160 mg PO HS Blood Pressure 07/13/24 07/18/25 History
pantoprazole 40 mg tablet,delayed 40 mg PO DAILY #30 tabs 07/19/24 07/18/25 Rx
release
prednisone 50 mg tablet 50 mg PO DAILY 5 days #5 tabs 07/20/25 Rx
Review of Systems
-
History Source: Patient
Constitutional: Reports No Symptoms
EENT: Reports No Symptoms
Respiratory: Reports No Symptoms
Cardiac: Reports No Symptoms
Abdomen/GI: Reports No Symptoms
: Reports No Symptoms
Musculoskeletal: Reports Muscle Pain and Other (Generalized myalgia)
Skin: Reports Rash (Now resolved)
Neurological: Reports Other (Confusion now resolved)
Physical Exam
Vital Signs
Temp Pulse Resp BP Pulse Ox
97.7 F 68 18 144/64 98
07/20/25 07:00 07/20/25 07:00 07/20/25 07:00 07/20/25 07:00 07/20/25 07:00
Lab Results
07/20/25 05:24
07/20/25 05:24
Physical Exam
General: No Apparent Distress
HEENT: Normocephalic, Anicteric and Atraumatic
Respiratory: Non Labored Respirations
Cardiac: Negative JVD
GI: Soft, Non Tender and Non Distended
Musculoskeletal: No Edema
Skin: Warm and Dry
Neuro: AO x 3 and Other (No tenderness over temporal artery biopsy)
Psych: Calm
Assessment / Plan
-
Assessment: 84-year-old female with myalgia and increased inflammatory markers with suspected giant cell arteritis and requested temporal artery biopsy.
Plan:
Will proceed with temporal artery biopsy today
N.p.o.
Patient seen and examined with Dr. Daniel Rush III, above plan reviewed with attending.
[2025-07-20] MEDS: BACTROBAN 2% OINTMENT 1 APPLIC NASAL (12:37)
[2025-07-20 12:41] LABS: Glucose - Point of Care 124 mg/dl (70-99)
--- NOTE | 2025-07-20 13:38 | W.SUR.PREOP ---
Pre-Operative Surgical Note
-
I have examined this patient prior to the performance of the scheduled procedure.
The patient's condition is unchanged from the time of the current History and
Physical and the patient is able to undergo the scheduled procedure.
--- NOTE | 2025-07-20 14:48 | OR.RPT ---
Operative Report
Operative Report
Date of Operation: 07/20/2025
Pre Op Diagnosis:
1.) Elevated inflammatory markers
2.) Suspected temporal arteritis
Post Op Diagnosis:
1.) Elevated inflammatory markers
2.) Suspected temporal arteritis
Procedure: BILATERAL temporal artery biopsies
Surgeon: Daniel Rush III, MD
Java Programmer: Lizett Martinez MD PGY2
Anesthesia: Sedation/local
Complications: None
Estimated Blood Loss: Minimal
History and Indications for Procedure: 85-year-old female with symptom constellation concerning for temporal arteritis. We are asked to provide temporal artery biopsies.
Procedure in Detail: Eva Gan was correctly identified and placed supine on the operating table. After adequate induction of anesthesia the hair overlying the bilateral temporal regions was shaved. The temporal pulses were palpated
bilaterally and appropriate skin incisions were marked over the temporal pulses bilaterally. The bilateral temporal regions were then prepped and draped in the usual sterile fashion. The patient received preoperative antibiotics. A time out
procedure was performed with the nursing and anesthesia staff confirming the patient's identity as well as the nature and laterality of the procedure.
Bilateral temporal artery biopsies were performed one at a time in the same manner as follows: Local anesthesia was infiltrated into the skin and subcutaneous tissue at the skin batsheva. A skin incision was made over the temporal skin batsheva.
Electrocautery and sharp dissection were used to expose the temporal artery. After adequate length of temporal artery had been exposed within the wound bed the proximal and distal ends were ligated with silk ties and small metal clips. The
intervening artery segment was transected proximally and distally and removed. The artery segment was identified according to laterality and passed off to the back table to be labeled and sent to pathology. The wound was then closely inspected for
hemostasis which was achieved. The wound was irrigated with saline solution.
Each wound was closed in layers. Skin glue was applied to each incision bilaterally.
The patient tolerated the procedure well and was taken to the recovery room in good condition.
Attestation: I was present and responsible for the entire procedure
Signed:
Daniel Rush III, MD
[facility]
[phone] (atbj)
[2025-07-20] MEDS: ZOFRAN 4 MG IV ×2 (14:56→20:50)
--- NOTE | 2025-07-20 15:36 | PTCARENOTE ---
Addendum entered by Mary Clayton RN 07/20/25 19:31:
Pt's vital signs monitored as ordered as well as assessing pt's incision sites. Sites remain clean, dry, and intact. VS WNL.
Original Note:
RN received report from PACU. Pt arrived back to unit at 1536 via pt's bed. Pt awake and alert x3. Pt has no complaints of pain at this time. Pt reports having nausea and has received zofran while in PACU after procedure. Pt's incisions clean dry
and intact with surgical glue. Vital signs taken and documented under vital signs.
[2025-07-20] MEDS: OCUVITE SOFTGEL 1 CAP PO (20:50)
[2025-07-20] MEDS: LIDOCAINE 4% PATCH 1 PATCH TOPICAL (20:51)
[2025-07-20] MEDS: STERILE WATER FOR INJECTION IV (20:52)
[2025-07-20] MEDS: DIOVAN PO ×2 (21:09→22:35)
[2025-07-20] MEDS: TYLENOL 1000 MG PO (22:56)
[2025-07-21] MEDS: SYNTHROID 75 MCG PO (06:05)
[2025-07-21 06:08] LABS: Hematocrit 31.9 % (37.0-47.0); Hemoglobin 10.5 g/dL (12.0-16.0); Mean Corp Hgb Conc. 32.9 g/dL (33.0-37.0); Mean Corpuscular Volume 86.2 fL (81.0-99.0); Platelet Count 283 10^3/uL (130-400); Red Cell Dist. Width 14.1 % (11.5-14.5)
[2025-07-21 06:30] LABS: ALT (SGPT) 11 U/L (0-35); AST (SGOT) 16 U/L (14-36); Albumin 3.9 g/dl (3.5-5.0); Alkaline Phosphatase 63 U/L (38-126); Blood Urea Nitrogen 28 mg/dl (7-17); Calcium 8.9 mg/dl (8.4-10.2); Carbon Dioxide 22 mmol/L (22-30); Chloride 110 mmol/L (98-107); Estimated Creatinine Clearance 37 ml/min; Glucose 158 mg/dl (70-99); Magnesium 2.0 mg/dl (1.6-2.3); Potassium 4.4 mmol/L (3.5-5.1); Sodium 138 mmol/L (135-145); Total Protein 7.0 g/dl (6.3-8.2); eGFR 55.21
[2025-07-21 07:00] VITALS: BP 153/92
--- NOTE | 2025-07-21 10:02 | W.PN.VS ---
Today's Communication / Plan
-
Plan reviewed with on-call attending.
Assessment/Plan
-
Assessment: 84-year-old female POD #1 bilateral temporal artery biopsy
Plan:
Follow-up placed in discharge instructions
As needed pain medications
We will sign off please call with questions or concerns
Subjective Data
-
Date of Service: July 21, 2025
Patient seen examined bedside, endorses well-managed postoperative pain at bilateral temporal artery sites. Offers no other complaints.
Objective Data
-
Vital Signs
Temp Pulse Resp BP Pulse Ox
97.7 F 84 18 153/92 98
07/21/25 07:00 07/21/25 07:00 07/21/25 07:00 07/21/25 07:00 07/21/25 07:00
Intake and Output
07/20/25 07/21/25 07/22/25
06:59 06:59 06:59
Intake Total 1200 / 1200 360 / 360
Balance 1200 / 1200 360 / 360
Intake:
Oral fluids 1200 / 1200 360 / 360
Other:
Number of approximated MODERATE 2 3 3
amounts of urine
Lab Results
07/21/25 05:50
07/21/25 05:50
Calcium 8.9 mg/dl (8.4-10.2) 07/21/25 05:50
Magnesium 2.0 mg/dl (1.6-2.3) 07/21/25 05:50
Total Bilirubin 0.5 mg/dl (0.2-1.3) 07/21/25 05:50
AST 16 U/L (14-36) 07/21/25 05:50
ALT 11 U/L (0-35) 07/21/25 05:50
Alkaline Phosphatase 63 U/L (38-126) 07/21/25 05:50
Total Protein 7.0 g/dl (6.3-8.2) 07/21/25 05:50
Albumin 3.9 g/dl (3.5-5.0) 07/21/25 05:50
Physical Exam
-
No apparent distress, resting in bed comfortably
No dyspnea on room air
Bilateral temporal artery sites clean, dry, and intact, Exofin intact, sites well-approximated, no evidence of hematoma or edema
[2025-07-21] MEDS: DELTASONE 60 MG PO (10:54)
[2025-07-21] MEDS: VITAMIN D3 (cholecalciferol) 50 MCG PO (10:54)
[2025-07-21] MEDS: VITAMIN B-12 1000 MCG PO (10:54)
[2025-07-21] MEDS: HEPARIN 5000 UNITS SC (10:55)
[2025-07-21] MEDS: REMOVE LIDOCAINE PATCH 1 PATCH REMOVE (10:55)
[2025-07-21] MEDS: PROTONIX 40 MG PO (10:55)
[2025-07-21] MEDS: OCUVITE SOFTGEL 1 CAP PO (10:55)
--- NOTE | 2025-07-21 11:00 | W.PN.HOSP.TC ---
Today's Communication/Plan
-
d/c
Assessment / Plan
Assessment / Plan
pt is an 84 year old female
Generalized aches/pain, right hip pain, low back pain, right base of toe tenderness/pain--Polyradiculopathy with no signs of joint swelling or erythema in specific joint--etiologies were pseudogout flare vs infectious source VS GCA? ESR increased
from 60 to 80 WITH 1 dose of steroids, CRP also increased from 38 to 49--apprec vascular surgery s/p bilateral temporal artery biopsy, path pending--covid/flu negative, cultures negative---s/p 1 dose of methylprednisolone--can stop IVF--pt was c/o
of diarrhea--since resolved--possible viral illness/gastroenteritis?--added prednisone--should cont until sees rheum
Patient reported subjective confusion. Patient seems very alert and fully oriented. She was able to provide detailed history--Will monitor mental status for now. She denied focal neurologic deficit. Right hip is mostly painful with low back
pain--relieved with steroids
History of paroxysmal A-fib status post ablation. She is not on aspirin or Eliquis.
Essential hypertension, elevated blood pressure mostly related to her discomfort
Hypothyroidism--cont levothyroxine
Renal insufficiency, consistent with CKD 3A. Seems stable at baseline.
DVT proph-- with subcu heparin
CODE STATUS-- DNR
Anticipated Discharge: Today
Subjective/Interval History
-
Date of Service: July 21, 2025
pt feeling better
Objective Data
-
Labs:
Laboratory Results
07/21/25
05:50
WBC 9.6
Hgb 10.5 L
Hct 31.9 L
Plt Count 283
Sodium 138
Potassium 4.4
Chloride 110 H
Carbon Dioxide 22
BUN 28 H
Creatinine 1.0
Glucose 158 H
Calcium 8.9
Total Bilirubin 0.5
AST 16
ALT 11
Alkaline Phosphatase 63
Vital Signs:
max temp for 24 hours
07/20/25
17:45
Temp 98.4 F
Vital Signs
Temp Pulse Resp BP Pulse Ox
97.7 F 84 18 153/92 98
07/21/25 07:00 07/21/25 07:00 07/21/25 07:00 07/21/25 07:00 07/21/25 07:00
I&O
07/20/25 07/21/25 07/22/25
06:59 06:59 06:59
Intake Total 1200 / 1200 360 / 360
Balance 1200 / 1200 360 / 360
Review of Systems
-
All other systems: Reviewed and negative
Physical Exam
-
General: Well Developed, Well Nourished and No Apparent Distress
HEENT: Normocephalic, Atraumatic and Other (bilateral incisions at temporal artery area); Negative Oxygen
Respiratory: Clear to Auscultation; Negative Wheezes or Rhonchi
Cardiac: Regular Rhythm and S1/S2; Negative Murmur
GI: Soft, Nontender, Nondistended and Normal Bowel Sounds
Musculoskeletal: No Clubbing, No Cyanosis and No Edema
Skin: Warm
Neuro: Awake
--- NOTE | 2025-07-21 11:13 | CM ---
Addendum entered by Ele Cardona 07/21/25 12:16:
please fax discharge summary to [phone]
Original Note:
Patient seen at bedside with physician on . Patient states that she will need transportation home and CM called to [facility] at [facility] [phone] and spoke with Manjeet, transportation to warehouse picker patient and they will call
with time. CM also updated Manjeet that patient anticipated having an aide meet her at the apartment. CM will continue to follow for discharge planning needs.
Plan; home with follow up with PCP, and physicians as in discharge summary
[2025-07-21 15:23] VITALS: BP 162/98
--- NOTE | 2025-07-22 07:31 | W.DCSUMMARY ---
Discharge Summary
Discharge Data
Date of Admission: 07/18/25
Date of Discharge: 07/21/25
-
Pending Results: Yes
Additional Pending Results:
temporal artery biopsy results
Hospital Course
Primary care physician : Jossy Prajapati
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
Chronic Discharge diagnosis : Paroxysmal atrial fibrillation status post ablation in past, essential hypertension, hypothyroidism, chronic kidney disease stage IIIa
Hospital Course : Patient was an 84-year-old female who came from [facility]. She reported that she could not sleep due to multiple aches and pains along with chills. She had no documented fever. She states that she was taking Tylenol
but was worried about side effects. She also reported some confusion and not being herself. She described forgetting where she was over the 2 days prior to admission. Her facility decided to call the ambulance. She was found to have a mild
leukocytosis but no fever. She was admitted.
Problem #1: Polyradiculopathy with elevated inflammatory markers. Patient was admitted and working diagnosis was pseudogout. She did receive 1 dose of 40 mg of IV methylprednisolone in the emergency department. She stated that she felt the same
way when she had 'sepsis'. The following morning, she felt markedly better however, sed rate was noticed to be 60 and after 1 dose of steroids went to 80. C-reactive protein also increased from 38-49 during that same time period. Given her
symptoms, vascular surgery was consulted for temporal artery biopsies. She did undergo bilateral and results are pending at this time. Otherwise her infectious workup was negative; COVID, flu, all cultures were negative. Chest x-ray negative as
well. She was started on high-dose steroids. Rheumatology was contacted to provide an expedited outpatient evaluation. She should continue on the steroids until she sees rheumatology. Patient's confusion seem to resolve it is unclear what the
cause of that was. 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
anterolisthesis of L4 on L5 secondary to severe facet joint arthrosis.
Problem #2: All other medical issues. These include Paroxysmal atrial fibrillation status post ablation in past, essential hypertension, hypothyroidism, chronic kidney disease stage IIIa. These medical issues were stable during her
hospitalization. Medications were continued as able.
Patient is stable for discharge back to [facility] at this time. If there are any questions regarding this dictation or her hospital stay, please do not hesitate to call. Our office number is [phone].
Time for discharge 34 minutes.
Imaging findings:
Lumbar spine X-RAY IMPRESSION:
1. 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
2. Grade 1 anterolisthesis of L4 on L5 secondary to severe facet joint arthrosis.
3. Chronic superior endplate compression fracture of L1.
Discharge Plan
-
Patient Disposition: Home (Routine Discharge)
Discharge Diagnosis/Procedures: Generalized aches and pains with polyradiculopathy, subjective confusion�resolved, history of paroxysmal atrial fibrillation status post ablation in past, essential hypertension, hypothyroidism, chronic kidney disease
stage III AA, elevated inflammatory markers
Condition: Good
Diet: As tolerated and Regular
Activity: As tolerated
Driving Restrictions: As prior to admission
Bathing Restrictions: None
Activity Restrictions/Additional Instructions:
ESR 60, got 40mg IV methylprednisolone, went to 80
CRP went from 38 to 49 in same time frame
Stand Alone Forms: Vascular Surg Discharge Instr
Referrals:
Jossy Prajapati NP [Family Provider, Family Practice] - in less than 1 week
Radha Dunham PA-C [Specified Professional Personl, Vascular Surgery] - 08/04/25 10:00 am
Caridad Perez MD [Consulting Staff, Rheumatology]
Referral Note: anyone in the group is good
need expedited appointment for elevated inflammatory markers status post temporal artery biopsies
Daniel Rush III, MD [Active, Vascular Surgery] - in two weeks
Additional Discharge Medication Instructions: Continue to take your prednisone until you follow up with rheumatology
Prescriptions:
New
prednisone 50 mg tablet
50 mg PO DAILY Qty: 60 0RF
Continued
cholecalciferol (vitamin D3) 2,000 UNITS tablet
2,000 units PO DAILY
PreserVision AREDS-2 1 EACH capsule
1 ea PO BID
cyanocobalamin (vitamin B-12) 1,000 mcg Tablet
1,000 mcg PO DAILY
levothyroxine 75 mcg Tablet
75 mcg PO QPM
valsartan 160 mg Tablet
160 mg PO HS
pantoprazole 40 mg Tablet,Delayed Release (Dr/Ec)
40 mg PO DAILY Qty: 30 0RF
Discharge Orders:
Discharge Patient (As Directed); Ordered 07/21/25
Ordered By: Alexandra Joseph
Discharge Date and Time
Discharge Date/Time: 07/21/25 15:41
Print Language: CANADIAN
== END 2025-07-21 15:41 | disposition home health service (06) | DRG 517 ==
LOC: 3 WEST ACU 17:57
PROVIDERS: Physician Assistant; ADMITTING PHYSICIAN Internal Medicine; ATTENDING PHYSICIAN Internal Medicine; CONSULT PHYSICIAN Surgery Vascular Surgery; EMERGENCY PHYSICIAN Emergency Medicine; FAMILY PHYSICIAN Family Medicine
PROC: 03BS0ZX Excision of Right Temporal Artery, Open Approach, Diagnostic (ICD-10-PCS; 2025-07-20)
PROC: 03BT0ZX Excision of Left Temporal Artery, Open Approach, Diagnostic (ICD-10-PCS; 2025-07-20)
DX: M31.6 Other giant cell arteritis (principal); I12.9 Hypertensive chronic kidney disease with stage 1 through stage 4 chronic kidney disease, or unspecified chronic kidney disease; N18.31 Chronic kidney disease, stage 3a; E03.9 Hypothyroidism, unspecified; Z66 Do not resuscitate; Z87.891 Personal history of nicotine dependence; Z11.52 Encounter for screening for COVID-19
CPT/HCPCS: 37609; 71046; 72100; 80053; 81003; 81015; 82550; 82962; 83735; 85025; 85027; 85652; 86140; 86850; 86900; 86901; 87040; 87086; 87502; 87811; 88305; 88313; 93005; 97162; 97166; 99285

== ENCOUNTER 2025-07-29 15:28 | Emergency (ER) | payer MEDICARE, OTHER, SELFPAY ==
[2025-07-29 15:38] VITALS: BP 183/122
[2025-07-29 16:18] LABS: ALT (SGPT) 19 U/L (0-35); AST (SGOT) 20 U/L (14-36); Albumin 4.4 g/dl (3.5-5.0); Alkaline Phosphatase 82 U/L (38-126); Blood Urea Nitrogen 25 mg/dl (7-17); Calcium 9.8 mg/dl (8.4-10.2); Carbon Dioxide 24 mmol/L (22-30); Chloride 104 mmol/L (98-107); Estimated Creatinine Clearance 40 ml/min; Glucose 248 mg/dl (70-99); Potassium 4.2 mmol/L (3.5-5.1); Sodium 137 mmol/L (135-145); Total Protein 7.6 g/dl (6.3-8.2); eGFR > 60.00
[2025-07-29 16:23] LABS: Urine Character Clear (Clear)
[2025-07-29 16:26] LABS: Hematocrit 40.9 % (37.0-47.0); Hemoglobin 12.9 g/dL (12.0-16.0); Mean Corp Hgb Conc. 31.5 g/dL (33.0-37.0); Mean Corpuscular Volume 90.5 fL (81.0-99.0); Nucleated Red Blood Cells % 0 %; Platelet Count 277 10^3/uL (130-400); Red Cell Dist. Width 15.1 % (11.5-14.5)
[2025-07-29 17:06] VITALS: BP 193/94
[2025-07-29 17:06] LABS: Urine Red Blood Cell 0-2 /HPF (0-2); Urine Squamous Cell 0-2 /LPF (Few); Urine White Cell 0-2 /HPF (0-5)
--- NOTE | 2025-07-29 17:30 | ED.GENMED ---
History of Present Illness
General
Chief Complaint: Dizziness
Source: patient
Exam Limitations: none
Time Seen by Provider: 07/29/25 16:08
History of Present Illness
History of Present Illness:
Patient has been on high dose steroids, 50 mg of prednisone per day for a polyradiculopathy with elevated inflammatory markers. She did temporal artery biopsy recently that was negative. She has been having some psychiatric issues related to the
prednisone. She started Seroquel yesterday. She took her first dose yesterday morning and states she slept for 14 hours. She did not take it last evening. She took it again today. Complains of some dizziness. No other specific medical
complaints.
Past History
Past History
ED Past Medical History: Arrthythmia (Atrial fib), Cancer (Ileum), HTN, NIDDM, Hypothyroidism, Psychiatric and Other (Diverticulitis)
ED Past Surgical History: Appendectomy, Bowel resection (Ileum removed for CA), Cholecystectomy, Gynecological (Hysterectomy) and Tonsilectomy
Social History
Tobacco: Former smoker
Alcohol: Occasional
Drug: None
Personal:
Living: assisted living
Employment: Retired
Family History
Family History: Other (Coronary artery disease, brother with pancreatic cancer, sister with CHF)
Review of Systems
Review of Systems
All Other Systems: Not applicable
Constitutional: Denies fever or chills
Respiratory: Denies trouble breathing
Cardiac: Denies chest pain or palpitations
Phy Exam
Physical Exam
Physical Exam:
GENERAL: Alert and oriented in no apparent distress
EYE: Orbits normal.
NECK: Supple. Nontender
ENT: Pharynx without erythema
CARDIAC: Regular rate and rhythm without any obvious murmurs.
LUNGS: Clear breath sounds,normal
ABDOMEN: Soft, without focal tenderness or distention
NEUROLOGICAL: Alert and oriented , grossly non-focal
SKIN: Warm and dry, no rash or lesion, no discoloration, skin intact.
MUSCULOSKELETAL: No edema,no deformity.Good color
PSYCH: Normal and appropriate interaction.
Course
Orders/Labs/Results
Orders:
Orders
07/29/25 15:41
Electrocardiogram (*1) Urgent
Reason for Study: Abdominal Pain
EKG- Treatment ONCE
07/29/25 15:50
Complete Blood Count/With Diff Urgent
Comprehensive Metabolic Panel Urgent
Erythrocyte Sed Rate Urgent
Comment: ADD ON
07/29/25 15:56
Urinalysis Reflex To Culture Urgent
Date Specimen was Collected: 07/29/25
Time Specimen was Collected: 15:54
Urine Microscopic Reflex Cult Urgent
07/29/25 16:27
CT Head W/o Iv Contrast Urgent
Comment:
Reason For Exam: Change in mental status
07/29/25 16:29
Add On- LAB Urgent
Tests Added?: esr
Abnormal Lab Results
07/29/25 07/29/25
15:50 15:56
WBC 16.6 H 10^3/uL
(4.8-10.8)
MCHC 31.5 L g/dL
(33.0-37.0)
RDW 15.1 H %
(11.5-14.5)
Abs Immat Gran (auto) 0.7 H 10^3/uL
(0-0.05)
Absolute Neuts (auto) 13.6 H 10^3/uL
(1.4-6.5)
Immature Gran % 4.1 H %
(0-0.5)
Neutrophils % 81.7 H %
(42.2-75.2)
Lymphocytes % 10.4 L %
(20.5-51.1)
BUN 25 H mg/dl
(7-17)
Glucose 248 H mg/dl
(70-99)
Urine Bacteria (Reflex) Few A
(Negative)
Urine Glucose 2+ A
(Negative)
Urine Albumin (Reflex) 1+ A
(Neg - Trace)
07/29/25 15:50
07/29/25 15:50
Vital Signs
Initial and Last Documented VS:
Initial Vital Signs
Temp Pulse Resp Pulse Ox
98.7 F 83 20 98
07/29/25 15:33 07/29/25 15:33 07/29/25 15:33 07/29/25 15:33
Last Documented Vital Signs
Temp Pulse Resp BP Pulse Ox
98.7 F 86 20 181/91 97
07/29/25 15:33 07/29/25 18:00 07/29/25 18:00 07/29/25 18:00 07/29/25 18:00
MDM/Problems Addressed
Differential Diagnosis Includes:
Previous records reviewed. Symptoms likely related to medications including the high-dose steroids and the Seroquel. Neurologic exam is benign. She is not describing infectious symptoms. She is nontoxic in appearance. We will get a head CT as a
screen. Sed rate is down to 2. Leukocytosis likely ongoing. Will ambulate and if patient ambulates well and is at her baseline I feel that is safe to discharge to follow-up
*Pulse Oximetry
SaO2: 98
Oxygen Mode of Delivery: Room air
Patient hypoxic: no
*EKG
Interpreted by ED Provider?: Yes
Interpretation: abnormal
Comparison EKG: changes noted
Heart Rate: 74
Rate: normal
Rhythm: sinus
[place]: left axis deviation
Interval: normal interval
QRS Pattern: right bundle branch block
Ischemia: non-specific ST changes
*Critical Care Note
Total Time (30-74mins, 75-104mins- exclusive of procedures): Not Applicable
Update Note
Update Note:
Patient has remained stable and nontoxic. She ambulated well. She is in no distress. She feels well. I feel her symptoms are very likely all related to her high-dose steroids, Seroquel. Her temporal biopsies were negative. Her ESR is currently
2. I feel it is very reasonable to start tapering her steroids. The rest of her workup is unremarkable. She does have elevated blood pressure again likely steroid related. She denies headache focal neurologic symptoms chest pain shortness of
breath or any other symptoms related to this. She will monitor her blood pressure closely and is very anxious to go home.
Patient has a leukocytosis and does have an elevated bandemia although not describing any infectious symptoms acutely. Her abdomen is benign she has no respiratory symptoms she has no unusual rash. Her neck is supple. Her urine is negative. This
can be watched closely as an outpatient. No indication for admission based on this lab result
ED Attending Note
-
Portions of this chart may have been created with voice recognition software.� Occasional wrong word or��sound alike� substitutions may have occurred due to the inherent limitations of voice recognition software.
Discharge Plan
Departure
Patient Disposition: Home (Routine Discharge)
Date of Disposition: 07/29/25
Time of Disposition: 18:00
Patient with high blood pressure during this ER visit?: Yes
Discharge Problem:
Dizziness, suspect medication related
Instructions: Dizziness, BLOOD PRESSURE
Prescriptions:
No Action
cholecalciferol (vitamin D3) 2,000 UNITS tablet
2,000 units PO DAILY
PreserVision AREDS-2 1 EACH capsule
1 ea PO BID
cyanocobalamin (vitamin B-12) 1,000 mcg Tablet
1,000 mcg PO DAILY
levothyroxine 75 mcg Tablet
75 mcg PO QPM
valsartan 160 mg Tablet
160 mg PO HS
pantoprazole 40 mg Tablet,Delayed Release (Dr/Ec)
40 mg PO DAILY Qty: 30 0RF
prednisone 50 mg tablet
50 mg PO DAILY Qty: 60 0RF
Referrals:
Jossy Prajapati NP [Family Provider, Family Practice] - Follow up in 2-3 days
Activity Restrictions/Additional Instructions:
Monitor your blood pressure closely
I recommend starting to taper your steroids. Your temporal biopsies were negative. Your ESR is 2.
Your blood sugar and blood pressure are currently elevated and likely secondary to the steroids. Monitor this although I would expect this to improve as the taper progresses
I would not take the Seroquel currently
Interventions
Interventions:
*Risk Screen - Suicide Last Done: 07/29/25 15:33
*General Assessment Last Done: 07/29/25 15:33
*Neglect/Abuse Screening Last Done: 07/29/25 15:33
*ED COVID-19 Vaccine History Last Done: 07/29/25 17:25
*ED Influenza Vaccine History Last Done: 07/29/25 17:25
*Nursing Disposition Last Done: 07/29/25 18:28
ED- Neurological Assessment Last Done: 07/29/25 17:25
ED Swallowing Screen Last Done: 07/29/25 18:00
Discharge Date and Time
Discharge Date/Time: 07/29/25 18:28
Print Language: IRAQI
[2025-07-29 17:38] VITALS: BP 214/100
[2025-07-29 17:43] VITALS: BP 206/98
[2025-07-29 18:00] VITALS: BP 181/91
== END 2025-07-29 18:28 | disposition home or self-care (01) ==
LOC: EMR 15:28
PROVIDERS: Emergency Medicine; EMERGENCY PHYSICIAN Emergency Medicine; FAMILY PHYSICIAN Family Medicine
DX: R42 Dizziness and giddiness (principal); I45.10 Unspecified right bundle-branch block; D72.825 Bandemia; E03.9 Hypothyroidism, unspecified; E11.9 Type 2 diabetes mellitus without complications; I10 Essential (primary) hypertension; I48.91 Unspecified atrial fibrillation; Z87.891 Personal history of nicotine dependence; Z90.49 Acquired absence of other specified parts of digestive tract; Z90.710 Acquired absence of both cervix and uterus; Z79.899 Other long term (current) drug therapy
CPT/HCPCS: 99284; 70450; 80053; 81003; 81015; 85025; 85652; 93005

== ENCOUNTER 2025-08-15 20:25 | Emergency (ER) | payer MEDICARE, OTHER, SELFPAY ==
[2025-08-15 20:29] VITALS: BP 178/81; BMI 25.7
--- NOTE | 2025-08-15 20:31 | ED.GENMED ---
History of Present Illness
General
Chief Complaint: Dizziness
Source: patient
Exam Limitations: none
Time Seen by Provider: 08/15/25 20:27
History of Present Illness
History of Present Illness:
See MDM
Past History
Past History
ED Past Medical History: Arrthythmia (Atrial fib), Cancer (Ileum), HTN, NIDDM, Hypothyroidism, Psychiatric and Other (Diverticulitis)
ED Past Surgical History: Appendectomy, Bowel resection (Ileum removed for CA), Cholecystectomy, Gynecological (Hysterectomy) and Tonsilectomy
Social History
Tobacco: Former smoker
Alcohol: Occasional
Drug: None
Personal:
Living: assisted living
Employment: Retired
Family History
Family History: Other (Coronary artery disease, brother with pancreatic cancer, sister with CHF)
Phy Exam
Physical Exam
Physical Exam:
See MDM
Course
Orders/Labs/Results
Orders:
Orders
08/15/25 20:27
Electrocardiogram (*1) Urgent
Reason for Study: Tachycardia
EKG- Treatment ONCE
08/15/25 20:31
CR Chest - 2 Views Urgent
Comment:
Reason For Exam: SOB
08/15/25 20:36
Basic Metabolic Panel Urgent
Complete Blood Count/With Diff Urgent
NT-proBNP Urgent
TSH Reflex To Free T4 Urgent
Troponin I Urgent
Abnormal Lab Results
08/15/25
20:36
Hgb 11.8 L g/dL
(12.0-16.0)
Hct 36.9 L %
(37.0-47.0)
MCHC 32.0 L g/dL
(33.0-37.0)
RDW 15.6 H %
(11.5-14.5)
Abs Immat Gran (auto) 0.1 H 10^3/uL
(0-0.05)
Absolute Monos (auto) 0.8 H 10^3/uL
(0.1-0.6)
Sodium 132 L mmol/L
(135-145)
BUN 20 H mg/dl
(7-17)
Glucose 162 H mg/dl
(70-99)
08/15/25 20:36
08/15/25 20:36
Vital Signs
Initial and Last Documented VS:
Initial Vital Signs
Temp Pulse Resp BP Pulse Ox
99.7 F 82 15 178/81 100
08/15/25 20:29 08/15/25 20:29 08/15/25 20:29 08/15/25 20:29 08/15/25 20:29
Last Documented Vital Signs
Temp Pulse Resp BP Pulse Ox
99.7 F 91 17 137/73 99
08/15/25 20:29 08/15/25 22:15 08/15/25 22:15 08/15/25 22:00 08/15/25 22:30
MDM/Problems Addressed
Differential Diagnosis Includes:
Note:
CHIEF COMPLAINT(S)
Palpitations and feeling foggy.
HISTORY OF PRESENT ILLNESS
The patient is an 85-year-old female complaining of palpitations and feeling 'foggy'. She has PMHx atrial fibrillation ablation a year ago. Today, the patient was brought to the emergency department by ambulance after a community nurse called 911
due to a very high and irregular pulse. The patient denies a history of blood thinner use. She describes feeling 'in a fog' and experiences a sensation of numbness or tingling around the lips and face. Earlier in the day, the patient felt weak and
experienced slight shortness of breath, though she denies significant improvement at present.
At present, she appears to be in a sinus rhythm. We discussed the possibility of recurrent A-fib as a source of her symptoms
CHRONIC MEDICAL CONDITIONS SIGNIFICANTLY AFFECTING CARE
Chronic atrial fibrillation status-post ablation.
PHYSICAL EXAM
General: Alert, no acute distress.
Skin: Warm, dry.
Head: Normocephalic, atraumatic
Neck: Appears supple, trachea midline.
Eyes, Ears, Nose, Mouth, and Throat: Mildly dry mucous membranes
Cardiovascular: No signs of cyanosis. Regular rate and rhythm
Respiratory: Respirations are non-labored.
Abdomen: Non-distended
Musculoskeletal: No deformities
Neurological: No focal neurological deficit observed.
Psychiatric: Cooperative, appropriate mood and affect.
DIFFERENTIAL DIAGNOSIS
The Differential Diagnosis includes, in no particular order and is not limited to:
- Recurrent atrial fibrillation
- Transient ischemic attack
- Anxiety attack
- Dehydration
- Hyperthyroidism
- Electrolyte imbalance
- Arrhythmia
- Congestive heart failure
- Stroke
- Anemia
MEDICAL DECISION MAKING
- Number and Complexity of Problems Addressed: Chronic conditions affecting care include a history of atrial fibrillation status-post ablation.
- Data:
- Category 1: Vital signs and nursing notes were reviewed.
- Risk:
- Consideration of Admission/Observation: Escalation of care including admission/observation was considered given the complexity and risk of the patients presenting complaint, exam findings, and her underlying comorbidities. However, ultimately it
was felt that the patient is safe for outpatient management with close follow-up. Reasoning: Work-up does not reveal any acute life/organ threatening processes at present, patients symptoms are being closely monitored, reexamination is reassuring,
vitals are stable, and she is reliable for follow-up.
SUMMARY OF ENCOUNTER
The patient, an 85-year-old female, presented to the emergency department with palpitations and a sensation of feeling foggy. She has a history of atrial fibrillation status-post ablation. Upon evaluation, the patients work-up was negative, and no
interventions were required. She expressed worry about a low-grade temperature but remained afebrile throughout her visit. The patient reported improvement in her symptoms and felt comfortable being discharged home.
DISPOSITION
Discharge
PATIENT EDUCATION AND COUNSELING
We discussed the possibility and likelihood of atrial fibrillation recurrence, the use of a Holter monitor, and the importance of outpatient follow-up.
FOLLOW-UP INSTRUCTIONS
The patient is advised to follow up as an outpatient.
MEDICAL DECISION MAKING
- Number and Complexity of Problems Addressed: Chronic conditions affecting care include chronic atrial fibrillation status-post ablation. Differential diagnosis considered recurrent atrial fibrillation, transient ischemic attack, anxiety attack,
dehydration, hyperthyroidism, electrolyte imbalance, arrhythmia, congestive heart failure, stroke, and anemia.
- Risk: Consideration of Admission/Observation: Escalation of care including admission/observation was considered given the complexity and risk of the patients presenting complaint, exam findings, and her underlying comorbidities. However,
ultimately, I feel the patient is safe for outpatient management with close follow-up. Reasoning: Work-up is reassuring, does not reveal any acute life/organ-threatening processes, the patients symptoms are well controlled upon reevaluation,
reexamination is reassuring, vitals are stable, the patient is agreeable with discharge, and reliable for follow-up.
DIAGNOSIS
Palpitations
*Pulse Oximetry
Patient hypoxic: no
*Critical Care Note
Total Time (30-74mins, 75-104mins- exclusive of procedures): Not Applicable
ED Attending Note
-
Portions of this chart may have been created with voice recognition software.� Occasional wrong word or��sound alike� substitutions may have occurred due to the inherent limitations of voice recognition software.
Discharge Plan
Departure
Patient Disposition: Home (Routine Discharge)
Date of Disposition: 08/15/25
Time of Disposition: 22:53
Patient with high blood pressure during this ER visit?: No
Discharge Problem:
Heart palpitations
Prescriptions:
No Action
cholecalciferol (vitamin D3) 2,000 UNITS tablet
2,000 units PO DAILY
PreserVision AREDS-2 1 EACH capsule
1 ea PO BID
cyanocobalamin (vitamin B-12) 1,000 mcg Tablet
1,000 mcg PO DAILY
levothyroxine 75 mcg Tablet
75 mcg PO QPM
valsartan 160 mg Tablet
160 mg PO HS
pantoprazole 40 mg Tablet,Delayed Release (Dr/Ec)
40 mg PO DAILY Qty: 30 0RF
prednisone 50 mg tablet
50 mg PO DAILY Qty: 60 0RF
Referrals:
Jossy Prajapati NP [Family Provider, Family Practice]
Activity Restrictions/Additional Instructions:
Please return for any worsening symptoms.
You may return at any time if you have further concerns.
Please follow up with your doctor at the first available appointment, preferably this week. As we discussed, your symptoms could have been related to a recurrence of A-fib. Please talk to your doctor about obtaining a Holter monitor. Please call
your retort cooler for first available appointment.
Thank you for choosing [facility].
Interventions
Interventions:
*Risk Screen - Suicide Last Done: 08/15/25 20:29
*General Assessment Last Done: 08/15/25 20:29
*Neglect/Abuse Screening Last Done: 08/15/25 20:29
*ED- Fall Risk Assessment Last Done: 08/15/25 20:29
*ED COVID-19 Vaccine History Last Done: 08/15/25 20:29
*ED Influenza Vaccine History Last Done: 08/15/25 20:29
ED- Neurological Assessment Last Done: 08/15/25 20:41
ED- Cardiac Assessment Last Done: 08/15/25 20:41
Discharge Date and Time
Print Language: PERSIAN
[2025-08-15 20:44] LABS: Hematocrit 36.9 % (37.0-47.0); Hemoglobin 11.8 g/dL (12.0-16.0); Mean Corp Hgb Conc. 32.0 g/dL (33.0-37.0); Mean Corpuscular Volume 87.0 fL (81.0-99.0); Nucleated Red Blood Cells % 0 %; Platelet Count 213 10^3/uL (130-400); Red Cell Dist. Width 15.6 % (11.5-14.5)
[2025-08-15 21:05] LABS: Blood Urea Nitrogen 20 mg/dl (7-17); Calcium 9.2 mg/dl (8.4-10.2); Carbon Dioxide 23 mmol/L (22-30); Chloride 103 mmol/L (98-107); Estimated Creatinine Clearance 36 ml/min; Glucose 162 mg/dl (70-99); Sodium 132 mmol/L (135-145); eGFR 54.87
[2025-08-15 21:14] LABS: Troponin I 0.015 ng/ml
[2025-08-15 22:00] VITALS: BP 137/73
== END 2025-08-16 02:40 | disposition home or self-care (01) ==
LOC: EMR 20:25
PROVIDERS: EMERGENCY PHYSICIAN Student in an Organized Health Care Education/Training Program; FAMILY PHYSICIAN Family Medicine
DX: R00.2 Palpitations (principal); E11.9 Type 2 diabetes mellitus without complications; E03.9 Hypothyroidism, unspecified; I48.20 Chronic atrial fibrillation, unspecified; I10 Essential (primary) hypertension; Z87.891 Personal history of nicotine dependence; Z90.49 Acquired absence of other specified parts of digestive tract
CPT/HCPCS: 99285; 71046; 80048; 83880; 84443; 84484; 85025; 93005